=== PATIENT | female | born 2000 | race Caucasian/White ===

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

== ENCOUNTER 2022-05-11 13:01 | Emergency (ER) | payer BC ==
--- OUTSIDE RECORDS SUMMARY | 2022-05-11 13:05 | XMS REPORT | Continuity of Care Document ---
:2000 Author Organization [facility] t Address [address] [place] [address] Care Team Providers Name Role Phone VALERIA PEREZ Huber Primary Care Physician Unavailable Dagoberto Olvera CGC Attending Clinician Lexy Paulson RN Attending Clinician Unavailable Counselor, [employer] Genetic Attending Clinician Unavailable SHERRI OCONNOR Attending Clinician Unavailable NATTY JORDAN Attending Clinician Unavailable Only, Ang Db Test Attending Clinician Unavailable Natty Li Attending Clinician Sherri Oconnor MD Attending Clinician Payers Payer Name Policy Type Policy Number Effective Date Expiration Date S mikhail [employer]X [employer] [id number] 2019 [facility] 00:00:00 [employer] [id number] 2019 00:00:00 Problems Condition Condition Condition Status Onset Resolution Last Treating Co mments Source Name Details Category Date Date Treatment Clinician Date 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 No known No known Disease Unive rs active active ity of problems problems [facility] Allergies, Adverse Reactions, Alerts Allergy Allergy Status Severity Reaction(s) Onset Inactive Treating Comm ents Source Name Type Date Date Clinician Shellfis Allergy Active Swelling 2021- [facility] h-Derive to 3-11 Health d substanc 00:00: Products e 00 NO KNOWN Drug Active [facility] ALLERGIE Class ity of S [facility] Social History Social Habit Start Date Stop Date Quantity Comments Source ASSERTION 2021-09-23 [facility] 00:00:00 Exposure to Not sure [facility] SARS-CoV-2 (event) History SDOH University o f Alcohol Frequency [place] [facility] History SDOH University o f Alcohol Std [place] [facility] Drinks [facility] History SDAZ University o f Alcohol Binge [place] [facility] Tobacco use and 2021-12-09 2021-12-09 Former smokeless [facility] exposure 00:00:00 00:00:00 tobacco user Alcohol intake 2021-12-09 2021-12-09 Ex-drinker [facility] 00:00:00 00:00:00 (finding) Alcohol Comment 2021-09-06 2021-09-06 Socially Universit y of 00:00:00 00:00:00 [facility] Sex Assigned At [birth year] [facility] 00:00:00 00:00:00 Smoking Status Start Date Stop Date Source Tobacco smoking consumption unknown [facility] Never smoked tobacco [facility] Medications Ordered Filled Start Stop Current Ordering Indication Dosage Frequency Signature Comments Components Source Medication Medication Date Date Medication? Clinician (SIG) Name Name DOCUSATE Yes Take by [facility] CALCIUM PO 3-11 mouth. Health 09:46: 03 DOCUSATE Yes Take by [facility] CALCIUM PO 3-11 mouth. Health 09:46: 03 DOCUSATE Yes Take by [facility] CALCIUM PO 3-11 mouth. Health 09:46: 03 DOCUSATE Yes Take by [facility] CALCIUM PO 3-11 mouth. Health 09:46: 03 DOCUSATE 0 Yes Take by [facility] CALCIUM PO 3-11 mouth. Health 09:46: 03 Yes Take by UT MV-Min-Fe 3-11 mouth. Health Fum-FA-DHA 09:45: ( 1 27 PO) 0 Yes Take by UT MV-Min-Fe 3-11 mouth. Health Fum-FA-DHA 09:45: ( 1 27 PO) Yes Take by [facility] MV-Min-Fe 3-11 mouth. Health Fum-FA-DHA 09:45: ( 1 27 PO) Yes Take by UT MV-Min-Fe 3-11 mouth. Health Fum-FA-DHA 09:45: ( 1 27 PO) Yes Take by UT MV-Min-Fe 3-11 mouth. Health Fum-FA-DHA 09:45: ( 1 27 PO) trazodone 2020-10 Yes Take by Unive rs HCl 2-07 mouth. ity of (TRAZODONE 15:52: [place] ORAL) 14 Medical Branch trazodone 2020-10 Yes Take by Unive rs HCl 2-07 mouth. ity of (TRAZODONE 15:52: [place] ORAL) 14 Medical Branch trazodone 2020-10 Yes Take by Unive rs HCl 2-07 mouth. ity of (TRAZODONE 15:52: [place] ORAL) 14 Medical Branch escitalopra Yes Take by Uni vers m oxalate 7-14 mouth. ity of (LEXAPRO 14:44: [place] ORAL) 55 Medical Branch escitalopra Yes Take by Uni vers m oxalate 7-14 mouth. ity of (LEXAPRO 14:44: [place] ORAL) 55 Medical Branch escitalopra Yes Take by Uni vers m oxalate 7-14 mouth. ity of (LEXAPRO 14:44: [place] ORAL) 55 Medical Branch traMADol 50 2020- No [id number] 50mg Take 1 Univers mg tablet -18 09- tablet by ity of 00:00: 00:00 mouth [place] 00 :00 every 6 Medical (six) Branch hours as needed (PAIN). ondansetron 2020- No [id number] 4mg Take 1 Univers 4 mg tablet 03-19- tablet by it y of 00:00: 00:00 mouth [place] 00 :00 every 8 Medical (eight) Branch hours as needed for Nausea and Vomiting (N/V). traMADol 50 2020- No [id number] 50mg Take 1 Univers mg tablet -18 09- tablet by ity of 00:00: 00:00 mouth [place] 00 :00 every 6 Medical (six) Branch hours as needed (PAIN). ondansetron 2020- No [id number] 4mg Take 1 Univers 4 mg tablet -18 09- tablet by it y of 00:00: 00:00 mouth [place] 00 :00 every 8 Medical (eight) Branch hours as needed for Nausea and Vomiting (N/V). Vital Signs Vital Name Observation Time Observation Value Comments Source Body height 2021-12-09 15:39:00 160 [facility] Body weight 2021-12-09 15:39:00 67.132 kg [facility] Healt h BMI 2021-12-09 15:39:00 26.22 kg/m2 [facility] Body mass index 2021-12-09 15:39:00 85.43 % [facility] He alth (BMI) [Percentile] Per age and sex Systolic blood 2021-09-06 21:45:00 100 mm[Hg] Univer sity of pressure [facility] Diastolic blood 2021-09-06 21:45:00 69 mm[facility]Hg[facility] 2021-09-06 21:45:00 97 /min [facility] Body temperature 2021-09-06 21:45:00 36.72 Shanda [facility] 2021-09-06 21:45:00 18 /min [facility] Body height 2021-09-06 21:45:00 160 cm [facility] Body weight 2021-09-06 21:45:00 66.044 kg [facility] BMI 2021-09-06 21:45:00 25.79 kg/m2 [facility] Body mass index 2021-09-06 21:45:00 84.16 % Unive rsity of (BMI) [Percentile] [facility] ical Per age and sex Branch Oxygen saturation in 2021-09-06 21:45:00 99 /min [facility] Arterial blood by [facility] Pulse oximetry Branch Procedures Procedure Date / Time Performed Performing Clinician Sourc e POCT TEST 2021-09-06 21:55:00 Sherri Oconnor [facility] Encounters Start End Encounter Admission Attending Care Care Encounter Source Date/Time Date/Time Type Type Clinicians Facility Department ID 2022-02-05 Outpatient [facility] [id number] ME 01:04:20 [id number] Health 2022-02-01 Outpatient [facility] [id number] ME 12:47:34 [id number] [facility] 2022-01-28 Outpatient [facility] [id number] [place] 11:47:45 [id number] [facility] 2022-01-16 Outpatient [facility] [id number] [place] 10:56:55 [id number] [facility] 2022-01-02 Outpatient [facility] [id number] [place] 10:01:57 [id number] [facility] 2021-12-27 Outpatient [facility] [id number] [place] 07:44:42 [id number] [facility] 2021-12-26 Outpatient [facility] [id number] [place] 14:37:57 [id number] [facility] 2021-12-09 Outpatient [facility] [id number] [place] 09:51:23 Health 2021-12-09 Outpatient [facility] [id number] [place] 09:50:50 Health 2021-12-09 Outpatient [facility] [id number] [place] 09:50:50 [facility] 2021-12-08 Outpatient [facility] [id number] [place] 15:51:55 [facility] 2021-12-07 Outpatient [facility] [id number] [place] 09:07:02 [facility] 2022-01-19 2022-01-19 Telephone Wade, ALEX 6410 [id number] [place] 00:00:00 00:00:[address] [id number] Health [id number] 2022-01-05 2022-01-05 Telephone ALEX Olvera 6410 [id number] [place] 00:00:00 00:00:[address] [id number] Health [id number] 2021-12-26 2021-12-26 Telephone ALEX Olvera 6410 [id number] [place] 00:00:00 00:00:[address] [id number] Health [id number] 2021-12-21 2021-12-21 Telephone ALEX Olvera 6410 [id number] [place] 00:00:00 00:00:[address] [id number] Health [id number] 2021-12-09 2021-12-09 Nurse Only Lexy Paulson UTP 6410 [id number]. [id number] [place] 00:00:00 00:00:[address] [id number] Health [id number] [id number] 2021-12-08 2021-12-08 Education Counselor, UTP 6410 [id number] [place] 14:00:00 15:00:[address] [id number] Health Genetic [id number] 2021-10-19 2021-10-19 Outpatient Hunter OCONNOR [facility] [id number] Univers 09:00:00 09:00:00 [id number] [facility] 2021-10-19 2021-10-19 Outpatient Hunter OCONNOR [facility] [id number] Univers 09:00:00 09:00:00 [facility] 2021-10-11 2021-10-11 Outpatient Hunter OCONNOR [facility] [id number] Univers 15:45:00 15:45:00 [id number] [facility] 2021-10-11 2021-10-11 Outpatient Hunter OCONNOR SHERRI [facility] [id number] Univers 15:45:00 15:45:00 [facility] 2021-09-21 2021-09-21 Outpatient R NIKKI [facility] [id number] Univers 14:30:00 15:10:35 NATTY [facility] 2021-09-21 2021-09-21 Laboratory Only, Ang Db Test [facility] [id number] Univers 14:30:00 14:45:00 Only Natty Jordan [id number] [facility] [id number] Emery as COLE?BLEA [id number] [place] [address] MEDICAL OFFICE BUILDING 2021-09-21 2021-09-21 Outpatient R [facility] [id number] Univers 14:30:00 14:30:00 [id number] [facility] 2021-09-07 2021-09-07 Outpatient R SHERRI OCONNOR [facility] [id number] Univers [facility]-09-[address] [facility] [id number] Univers 15:20:42 16:09:45 Visit Jose GARCIA [id number] i ty of [place] 4.2.7.2.686 Kiana HUGO [id number] [place] [address] 2021-09-06 2021-09-06 Outpatient R SHERRI OCONNOR [facility] [id number] Univers 15:15:00 16:09:45 [facility] Results Test Description Test Time Test Comments Results Result Comments Source POCT TEST 2021-09-06 21:55:00 Test Item Value Reference Range Interpretation Comme nts POCT PREG (test code = 1605) Negative On board controls acceptable with C Line (test code = 3574) Yes POCT PREG LOT # (test code = 3575) [facility]REG TEST [facility] (test code = 3576[id number] 21:55:00 Test Item Value Reference Range Interpretation Comments POCT PREG (test code = 1605) Negative On board controls acceptable with C Yes Line (test code = 3574) POCT PREG LOT # (test code = 3575) POCT PREG TEST DATE (test code = 3576) [facility]
[2022-05-11] MEDS ORDERED: PROMETHAZINE INJ 25 MG/ML AMP ONE ×2 (13:46→19:43)
[2022-05-11] MEDS ORDERED: NA CHLORIDE 0.9% 1,000 ML ONE (13:47)
[2022-05-11 14:11] LABS: Absolute Lymphocytes (CBC) 0.9 K/uL (0.7-4.9); Hematocrit 34.1 % (36.0-45.0); Lymphocytes % 6.7 % (15.3-44.8); MCV 84.5 fL (80-100); MPV 9.8 fL (7.6-11.3); RBC Red Blood Cell Count 4.04 M/uL (3.86-4.86)
[2022-05-11 14:27] LABS: Albumin 2.8 g/dL (3.4-5.0); Bilirubin Total 0.6 mg/dL (0.2-1.0); Potassium 3.7 mmol/L (3.5-5.1); Protein, Total 6.8 g/dL (6.4-8.2)
--- NOTE | 2022-05-11 14:28 | RAD REPORT ---
EXAM DESCRIPTION: US - Abdomen Exam Limited - 05/11/2022 2:15 pm CLINICAL HISTORY: FLANK PAIN Abdominal pain COMPARISON: No comparisons FINDINGS: The gallbladder demonstrates no gallstones. No pericholecystic fluid or gallbladder wall t hickening. The common bile duct is normal measuring 3 mm. The liver demonstrates no findings of intrahepatic biliary dilatation. IMPRESSION: Unremarkable examination.
[2022-05-11] MEDS ORDERED: MORPHINE 2 MG/ML SYR ONE (15:30)
--- NOTE | 2022-05-11 15:37 | RAD REPORT ---
EXAM DESCRIPTION: US - Renal Ultrasound-Limited - 05/11/2022 3:12 pm CLINICAL HISTORY: HYDRO -- LEFT Flank pain COMPARISON: Abdomen Exam Limited dated 05/11/2022 FINDINGS: Only in the left kidney was requested. The left kidney measures 12.1 x 6.3 x 5.1 cm. No hydronephrosis, focal mass or perinephric fluid. IMPRESSION: Negative left kidney ultrasound.
[2022-05-11 16:26] LABS: Urine Blood Trace-intact (Negative); Urine Glucose Negative (Negative); Urine Protein Negative (Negative); Urine Specific Gravity 1.025 (1.005-1.030)
[2022-05-11 17:19] LABS: Urine Bacteria 20-50 /HPF (<20); Urine RBC <5 /HPF (None Seen)
--- NOTE | 2022-05-11 18:05 | ER ---
Nurse's Notes [facility] Name: Ramírez Escalona Age: 21 yrs Sex: Female : 2000 Arrival Date: 05/11/2022 Time: 13:03 Bed 14 Private MD: Diagnosis: Pyelonephritis acute;Vomiting;Flank pain Presentation: 05/11 13:23 Chief complaint: Patient states: I started having bad pains that are in my side and I bm7 thought they were contractions so I went to my doc at [facility] and said I was not in labor and come the ER because it might be a kidney stone. Coronavirus screen: At this time, the client does not indicate any symptoms associated with coronavirus-19. Ebola Screen: No symptoms or risks identified at this time. Initial Sepsis Screen: Does the patient meet any 2 criteria? No. Patient's initial sepsis screen is negative. Does the patient have a suspected source of infection? No. Patient's initial sepsis screen is negative. Risk Assessment: Do you want to hurt yourself or someone else? Patient reports no desire to harm self or others. 13:23 Method Of Arrival: Ambulatory [facility] 13:23 Acuity: GIOVANNY 3 7 13:23 Onset of symptoms was May 11, 2022. 7 Triage Assessment: 13:26 General: Appears in no apparent distress. uncomfortable. General: Appears Behavior is bm7 calm, cooperative, appropriate for age. Pain: Complains of pain in left low back and left mid back Pain does not radiate. Pain currently is 8 out of 10 on a pain scale. EENT: No deficits noted. No signs and/or symptoms were reported regarding the EENT system. Neuro: No deficits noted. Cardiovascular: No deficits noted. Respiratory: No deficits noted. GI: Abdomen is round non-distended, Bowel sounds present X 4 quads. Reports nausea, vomiting. : Denies burning with urination, vaginal bleeding. Derm: No deficits noted. No signs and/or symptoms reported regarding the dermatologic system. Musculoskeletal: No deficits noted. No signs and/or symptoms reported regarding the musculoskeletal system. SLOPE TENDER: 13:26 LMP 09/09/2021, Verified, EDC 06/16/2022, Gestational age from LMP: 34 weeks 6 bm7 days Historical: - Allergies: 13:26 SHELLFISH; bm7 - Home Meds: 13:26 Multiple Vitamins oral tab [Active]; bm7 - PMHx: 13:26 Anxiety; Depression; bm7 - PSHx: 13:26 facial reconstruction; bm7 - Immunization history:: Adult Immunizations up to date. - Social history:: Smoking status: Patient/guardian denies using tobacco products. Screenin:00 Abuse screen: Denies threats or abuse. Denies injuries from another. Nutritional jl7 screening: No deficits noted. Tuberculosis screening: No symptoms or risk factors identified. Fall Risk IV access (20 points). Assessment: 14:00 General: Appears in no apparent distress. uncomfortable, Behavior is calm, cooperative, jl7 appropriate for age. Pain: Complains of pain in left mid back Pain radiates to left lower quadrant Pain currently is 9 out of 10 on a pain scale. Is continuous. Neuro: Level of Consciousness is awake, alert, obeys commands, Oriented to person, place, time, situation. Cardiovascular: Patient's skin is warm and dry. Respiratory: Airway is patent Respiratory effort is even, unlabored, Respiratory pattern is regular, symmetrical. GI: Abdomen is round distended, Reports nausea. : Denies burning with urination, pain with urination. Derm: Skin is dry, Skin is pale, Skin temperature is warm. 15:00 Reassessment: Patient appears in no apparent distress at this time. No changes from jl7 previously documented assessment. Patient and/or family updated on plan of care and expected duration. Pain level reassessed. Patient is alert, oriented x 3, equal unlabored respirations, skin warm/dry/pink. 15:56 Reassessment: Dr. Quan at bedside. jl7 17:00 Reassessment: Patient appears in no apparent distress at this time. No changes from jl7 previously documented assessment. Patient and/or family updated on plan of care and expected duration. Pain level reassessed. Patient is alert, oriented x 3, equal unlabored respirations, skin warm/dry/pink. Vital Signs: 13:23 BP 100 / 68; Pulse 84; Resp 16; Temp 98.8(TE); Pulse Ox 100% on R/A; Weight 78.02 kg bm7 (R); Height 5 ft. 3 in. (160.02 cm); Pain 9/10; 15:54 BP 127 / 71; Pulse 81; Resp 15; Pulse Ox 98% ; jl7 16:20 BP 112 / 69; Pulse 79; Resp 16; em6 17:45 BP 112 / 69; Pulse 79; Resp 15; Pulse Ox 97% ; jl7 13:23 Body Mass Index 30.47 (78.02 kg, 160.02 cm) bm7 Vitals: 19:01 Heart Tones 150 bpm. jl7 ED Course: 13:03 Patient arrived in ED. mr 13:06 Cristian Quan DO is Attending Physician. ms3 13:26 Triage completed. bm7 13:26 Arm band placed on left wrist. bm7 13:58 Vin Agustin, DAJUAN is Primary Nurse. jl7 14:00 Patient has correct armband on for positive identification. Pulse ox on. NIBP on. jl7 14:00 Initial lab(s) drawn, by ED staff, sent to lab. Inserted saline lock: 14 gauge in left jl7 antecubital area, using aseptic technique. Blood collected. 14:17 US Abdomen Limited In Process Unspecified. EDMS 15:13 Renal Ultrasound-Limited In Process Unspecified. EDMS 16:20 Urine collected: clean catch specimen, clear. jl7 17:37 called the office of Dr. Ashley Cooney at [phone] patient's OBGYN/ answering eb service will page the seasonal greenery bundler Dr. Sher and they will call us back. 17:[address] Shearer the seasonal greenery bundler covering Dr. Cooney with Dr. Quan for patient eb consultation. 19:01 No provider procedures requiring assistance completed. Patient transferred, IV remains jl7 in place. intact, No redness/swelling at site. Administered Medications: 13:40 Drug: NS 0.9% 1000 ml Route: IV; Rate: 1 bolus; Site: left antecubital; jl7 15:15 Follow up: Response: No adverse reaction; IV Status: Completed infusion; IV Intake: jl7 1000ml 13:45 Drug: Phenergan (promethazine) 25 mg Route: IM; Site: right deltoid; jl7 15:30 Drug: morphine 2 mg Route: IVP; Infused Over: 4 mins; Site: left antecubital; em6 16:20 Follow up: BP 112 / 69; Pulse 79 bpm; Resp 16 bpm; Response: No adverse reaction; RASS: em6 Alert and Calm (0) 18:28 Drug: Rocephin (cefTRIAXone) 1 grams Route: IV; Rate: calculated rate; Site: left jl7 antecubital; 19:02 Follow up: Response: No adverse reaction; IV Status: Completed infusion jl7 19:45 Drug: morphine 4 mg Route: IVP; Infused Over: 4 mins; Site: left antecubital; ja4 19:45 Drug: Phenergan (promethazine) 12.5 mg Route: IM; Site: left gluteus; ja4 Medication: 16:18 VIS not applicable for this client. jl7 Intake: 15:15 IV: 1000ml; Total: 1000ml. jl7 Outcome: 18:05 ER care complete, transfer ordered by ms3 19:53 Patient left the ED. ja4 Signatures: Dispatcher [employer] EDAR Angela ChasealVin RN RN jl7 Ruba Perera Marcus, DO ms3 Anastasia Pizarro, RN RN bm7 Kelsi Martinez RN RN em6 Javon Duenas RN RN ja4 Corrections: (The following items were deleted from the chart) 18:28 18:28 Rocephin (cefTRIAXone) 1 grams IV at calculated rate in right antecubital jl7 jl7
--- NOTE | 2022-05-11 18:05 | EDPHYS ---
Physician Documentation [facility] Name: Ramírez Escalona Age: 21 yrs Sex: Female : 2000 Arrival Date: 05/11/2022 Time: 13:03 Bed 14 Private MD: ED Physician Cristian Quan HPI: 05/11 17:54 This 21 yrs old Female presents to ER via Ambulatory with complaints of 34 wks ms3 , Nausea/Vomiting, Flank Pain. 17:54 The patient presents to the emergency department with nausea, vomiting. Onset: The ms3 symptoms/episode began/occurred last night. Possible causes: unknown. The symptoms are aggravated by nothing. The symptoms are alleviated by nothing. Associated signs and symptoms: Pertinent positives: nausea, vomiting. 21-year-old female G1, P0 at 34 weeks gestation presents for left flank pain that began last night. Patient states her pain is a 9/10 and aching. Patient states back rubs make the pain better. Patient denies inciting factors. Patient endorses nausea and vomiting. Patient denies dysuria. Patient states she was seen at [facility] labor and delivery where an ultrasound was performed and found to be normal and patient was discharged.. [employer]: 13:26 LMP 09/09/2021, Verified, EDC 06/16/2022, Gestational age from LMP: 34 weeks 6 bm7 days Historical: - Allergies: 13:26 SHELLFISH; bm7 - Home Meds: 13:26 Multiple Vitamins oral tab [Active]; bm7 - PMHx: 13:26 Anxiety; Depression; bm7 - PSHx: 13:26 facial reconstruction; bm7 - Immunization history:: Adult Immunizations up to date. - Social history:: Smoking status: Patient/guardian denies using tobacco products. ROS: 17:54 Constitutional: Negative for fever, and chills. Neck: Negative for injury, pain, and ms3 swelling, Cardiovascular: Negative for chest pain, and palpitations. Respiratory: Negative for shortness of breath, cough, wheezing, and pleuritic chest pain. 17:54 Skin: Negative for injury, rash, and discoloration. 17:54 Abdomen/GI: Positive for nausea and vomiting, Flank pain. 17:54 All other systems are negative. Exam: 17:54 Constitutional: This is a well developed, well nourished patient who is awake, alert, ms3 and in no acute distress. Neck: Trachea midline, no cervical lymphadenopathy. Supple, full range of motion without nuchal rigidity, or vertebral point tenderness. No Meningismus. Chest/axilla: Normal chest wall appearance and motion. Nontender with no deformity. Respiratory: Lungs have equal breath sounds bilaterally, clear to auscultation and percussion. No rales, rhonchi or wheezes noted. No increased work of breathing, no retractions or nasal flaring. 17:54 Skin: Warm, dry with normal turgor. Normal color with no rashes, no lesions, and no evidence of cellulitis. MS/ Extremity: Pulses equal, no cyanosis. Neurovascular intact. Full, normal range of motion. Neuro: Awake and alert, GCS 15, oriented to person, place, time, and situation. Cranial nerves II-XII grossly intact. Motor strength 5/5 in all extremities. Sensory grossly intact. Cerebellar exam normal. Normal gait. Psych: Awake, alert, with orientation to person, place and time. Behavior, mood, and affect are within normal limits. 17:54 Abdomen/GI: Inspection: gravid appearance, is noted, Bowel sounds: normal, Palpation: abdomen is soft and non-tender. 17:54 Back: CVA tenderness, is noted on the left. Vital Signs: 13:23 BP 100 / 68; Pulse 84; Resp 16; Temp 98.8(TE); Pulse Ox 100% on R/A; Weight 78.02 kg bm7 (R); Height 5 ft. 3 in. (160.02 cm); Pain 9/10; 15:54 BP 127 / 71; Pulse 81; Resp 15; Pulse Ox 98% ; jl7 16:20 BP 112 / 69; Pulse 79; Resp 16; em6 17:45 BP 112 / 69; Pulse 79; Resp 15; Pulse Ox 97% ; jl7 13:23 Body Mass Index 30.47 (78.02 kg, 160.02 cm) bm7 MDM: 13:42 Patient medically screened. ms3 17:54 Differential diagnosis: Nonspecific abd pain, gastritis, UTI vs Pyelonephritis vs ms3 Kidney stone. Data reviewed: vital signs, nurses notes, lab test result(s), CBC, electrolytes, hepatic panel, radiologic studies, ultrasound, and as a result, I will transfer to patient's physician. Counseling: I had a detailed discussion with the patient and/or guardian regarding: the historical points, exam findings, and any diagnostic results supporting the discharge/admit diagnosis, lab results, radiology results, the need to transfer to another facility. ED course: Discussed case with Dr Serene Velez, salesperson hosiery for patient's OB Dr Cooney, and she accepts patient to [facility].. 05/11 13:06 Order name: CBC with Diff; Complete Time: 14:34 ms3 05/11 13:06 Order name: CMP; Complete Time: 14:34 ms3 05/11 13:06 Order name: Urine Microscopic Only; Complete Time: 17:20 ms3 05/11 13:45 Order name: US Abdomen Limited; Complete Time: 14:34 ms3 05/11 16:26 Order name: Urine Dipstick-Ancillary; Complete Time: 17:11 EDMS 05/11 17:21 Order name: Urine Culture EDMS 05/11 13:06 Order name: IV Saline Lock; Complete Time: 13:58 ms3 05/11 14:46 Order name: Renal Ultrasound-Limited; Complete Time: 15:52 EDMS 05/11 13:06 Order name: Labs collected and sent; Complete Time: 13:58 ms3 05/11 13:06 Order name: Urine Dipstick-Ancillary (obtain specimen); Complete Time: 17:21 ms3 Administered Medications: 13:40 Drug: NS 0.9% 1000 ml Route: IV; Rate: 1 bolus; Site: left antecubital; jl7 15:15 Follow up: Response: No adverse reaction; IV Status: Completed infusion; IV Intake: jl7 1000ml 13:45 Drug: Phenergan (promethazine) 25 mg Route: IM; Site: right deltoid; jl7 15:30 Drug: morphine 2 mg Route: IVP; Infused Over: 4 mins; Site: left antecubital; em6 16:20 Follow up: BP 112 / 69; Pulse 79 bpm; Resp 16 bpm; Response: No adverse reaction; RASS: em6 Alert and Calm (0) 18:28 Drug: Rocephin (cefTRIAXone) 1 grams Route: IV; Rate: calculated rate; Site: left jl7 antecubital; 19:02 Follow up: Response: No adverse reaction; IV Status: Completed infusion jl7 19:45 Drug: morphine 4 mg Route: IVP; Infused Over: 4 mins; Site: left antecubital; ja4 19:45 Drug: Phenergan (promethazine) 12.5 mg Route: IM; Site: left gluteus; ja4 Disposition Summary: 05/11/22 18:05 Transfer Ordered Transfer Location: [facility] ms3 Reason: Higher level of care ms3 Condition: Stable ms3 Problem: new ms3 Symptoms: are unchanged ms3 Accepting Physician: Dr Serene Velez(05/11/22 19:53) jose a4 Diagnosis - Pyelonephritis acute ms3 - Vomiting ms3 - Flank pain ms3 Forms: - Medication Reconciliation Form ms3 - SBAR form ms3 Signatures: Dispatcher [employer] EDVin Durant RN RN jl7 Cristian Quan, DO ms3 Anastasia Pizarro, RN DAJUAN [email or web address] Kelsi Martinez RN RN em6 Javon Duenas RN DAJUAN ja4 Corrections: (The following items were deleted from the chart) 19:53 18:05 Dr Serene Velez ms3 ja4
[2022-05-11] MEDS ORDERED: NA CHLORIDE 0.9% 50 ML ONE (18:29)
[2022-05-11] MEDS ORDERED: CEFTRIAXONE 1000 MG/VIAL ONE (18:29)
[2022-05-11] MEDS ORDERED: MORPHINE 4 MG/ML SYR ONE (19:44)
[2022-05-11 22:51] VITALS: BP 100/68; TEMP 98.8; O2SAT 100
== END 2022-05-11 19:53 | disposition short-term general hospital (02) ==
LOC: ER 13:01
DX: O23.03 Infections of kidney in pregnancy, third trimester (principal); Z3A.34 34 weeks gestation of pregnancy; Z91.013 Allergy to seafood
CPT/HCPCS: 96365; 96361; 87088; 85025; 87086; 36415; 80053; 76705; 76775; 96375; 96372; 99284; J2550 ×2; J2270; J7030; 81003; 81015

== ENCOUNTER 2022-12-02 18:07 | Emergency (ER) | payer BC ==
--- OUTSIDE RECORDS SUMMARY | 2022-12-02 18:12 | XMS REPORT | Continuity of Care Document ---
:2000 Author Organization [facility] t Address [address] [facility]. [address] [place] [address] Care Team Providers Name Role Phone Unknown, Physician Primary Care Physician Unavailable ASHLEY COONEY Attending Clinician Unavailable Ashley Cooney Attending Clinician Nadege Aviles Attending Clinician NADEGE AVILES Attending Clinician Unavailable Serene Motley Attending Clinician SERENE MOTLEY Attending Clinician Unavailable Danny Gonzalez Attending Clinician DANNY GONZALEZ Attending Clinician Unavailable Dagoberto Olvera CGC Attending Clinician Lexy Paulson RN Attending Clinician Unavailable Counselor, [employer] Attending Clinician Unavailable SHERRI OCONNOR Attending Clinician Unavailable Melecio Dee Attending Clinician MELECIO DEE Attending Clinician Unavailable CAREN JORDAN Attending Clinician Unavailable Only, Ang Db Test Attending Clinician Unavailable Caren Li Attending Clinician Pob, [facility] Attending Clinician Unavailable Sherri Oconnor MD Attending Clinician Doctor Unassigned, [place] Attending Clinician Unavailable Jeremías Llanos Attending Clinician VIDAL PEREZROSA Huber Attending Clinician Unavailable CRISTAL DUNCAN Attending Clinician Unavailable [facility]ral [facility] DENISE Ariebonifacio Attending Clinician [facility] Attending Clinician Unavailable Cristal Berger Attending Clinician Manuel George MD Attending Clinician MANUEL GEORGE Attending Clinician Unavailable ASHLEY COONEY Admitting Clinician Unavailable Ashley Cooney Admitting Clinician Serene Motley Admitting Clinician SERENE MOTLEY Admitting Clinician Unavailable MANUEL GEORGE Admitting Clinician Unavailable Payers Payer Name Policy Type Policy Number Effective Date Expiration Date S mikhail [employer] [id number] 2019 [facility] 00:00:00 [facility] HEALTH SELECT [id number] 2019 00:00:00 [facility] [id number] 2014 00:00:00 Problems Condition Condition Condition Status Onset Resolution Last Treating Co mments Source Name Details Category Date Date Treatment Clinician Date , , Diagnosis Active 2022-06-14 Mem oria 06/16/22, 06/16/22, 05-31 13:56: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 00:00: Demario n IOL IOL 00 (UNVACCINA (UNVACCINA T T Active 05/31/2022 [facility] OB PROBLEM OB Diagnosis Active 2022-05-25 Memoria PROBLEM 05-25 22:30:00 l Active 00:00: [place] 05/25/2022 [facility] PYELONEPHR PYELONEPH Diagnosis Active 2022-05-13 Memoria ITIS RITIS 05-11 12:33:00 l Active 00:00: [place] 05/11/2022 [facility] CONTRACTIO Diagnosis Active 2022-05-12 Memoria NS CONTRACTIO 05-11 09:22:00 l NS Active 00:00: [place] 05/11/2022 [facility] PAIN PAIN Diagnosis Active 2022-03-23 Mem oria Active 03-23 21:28:00 l 03/23/2022 00:00: Demario clifford [address] 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 6 WKS 6 WKS Diagnosis Active 2021-10-14 Mem oria PREGO/VOMI PREGO/VOMI - 19:28:00 l TING/ABD TING/ABD 00:00: Demario clifford PAIN PAIN 00 Active 10/12/2021 [facility] Patient Patient Problem Active 2020-102022-06-19 Me goff currently currently 2-10 22:56:53 l 00:00: Demario clifford (finding) (finding) 00 Active 09/09/2021 Problem 06/19/2022 [facility] FALL FALL Diagnosis Active 2020-102021-08-15 Mem oria Active 10-14 13:14:00 l 08/14/2021 00:00: Demario clifford [address] [place] No known No known Disease Unive rs active active ity of problems problems [facility] Depressive Depressiv Problem Active 2022-06-19 Memoria disorder e disorder 22:56:53 l (disorder) (disorder) Kvng goodmanann Active Problem 06/19/2022 [facility], [facility] Chlamydial Problem Resolve 2022-06-19 2022-06-19 Memoria infection Chlamydial d 10-01 22:56:53 22:56:53 l (disorder) infection 00:00: Her hogan (disorder) 00 Resolved 10/01/2021 Problem 06/19/2022 [facility] History of Past Illness Condition Condition Condition Status Onset Resolution Last Treating Co mments Source Name Details Category Date Date Treatment Clinician Date Problem 2022-05-28 2022-05-28 Memoria state, formerly [facility], 05-26 00:11:21 00:11:21 l incidental incidental 04:06: Kvng lin 05/26/2022 00 05/28/2022 [facility] Frequency Frequency Problem 2022022-05-28 2022-05-28 Memoria of of 05-26 00:11:21 00:11:21 l micturitio micturitio 04:06: He delia n n 00 05/26/2022 05/28/2022 [facility] Allergies, Adverse Reactions, Alerts Allergy Allergy Status Severity Reaction(s) Onset Inactive Treating Comm ents Source Name Type Date Date Clinician Shellfis Allergy Active Swelling [place] h-Derive to 12-09 Health d substan 00:00: Products e 00 shellfis shellfis Active Memori a h h l [place] No Known No Known Active Memori a Medicati Medicati l on on [place] Allergie Allergie s s NO KNOWN Drug Active Univers ALLERGIE Class ity of S [facility] Social History Social Habit Start Date Stop Date Quantity Comments Source ASSERTION 2021-09-23 [facility] 00:00:00 History SDOH University o f Alcohol Frequency [place] [facility] History SDAZ University o f Alcohol Std [place] [facility] Drinks [facility] History SDAZ University o f Alcohol Binge [place] [facility] Exposure to Not sure [facility] SARS-CoV-2 (event) Social History 2022-03-24 2022-03-24 [facility] 00:37:39 00:37:39 Tobacco use and 2021-12-09 2021-12-09 Former smokeless [facility] exposure 00:00:00 00:00:00 tobacco user Alcohol intake 2021-12-09 2021-12-09 Ex-drinker [facility] 00:00:00 00:00:00 (finding) Alcohol Comment 2021-09-06 2021-09-06 Socially Universit y of 00:00:00 00:00:00 [facility] Sex Assigned At [birth year] [facility] 00:00:00 00:00:00 Smoking Status Start Date Stop Date Source Tobacco smoking consumption unknown [facility] Never smoked tobacco [facility] Social History 2021-08-14 10:11:52 [facility] Medications Ordered Filled Start Stop Current Ordering Indication Dosage Frequency Signature Comments Components Source Medication Medication Date Date Medication? Clinician (SIG) Name Name ferrous Yes 325 mg = 1 Christiano sarthak sulfate 325 9-17 tab, PO, l mg oral 16:55: Daily, # Demario n enteric 00 30 tab, 2 coated Refill(s), tablet Pharmacy: [facility] #[id number], 160.02, cm, 06/09/22 8:47:00 CDT, Height, 77.727, kg, 06/09/22 8:47:00 CDT, Weight ibuprofen Yes 600 mg = 1 Me moria 600 mg oral 9-17 tab, PO, l tablet 16:53: Q6H, X 14 Demario n 00 day, # 56 tab, 1 Refill(s), Pharmacy: [facility] #[id number], 160.02, cm, 06/09/22 8:47:00 CDT, Height, 77.727, kg, 06/09/22 8:47:00 CDT, Weight Colace 100 Yes 100 mg = 1 M emoria mg oral 9-17 cap, PO, l capsule 16:53: Daily, PRN Herm nakul 00 Constipati on, # 60 cap, 2 Refill(s), Pharmacy: [facility] #[id number], 160.02, cm, 06/09/22 8:47:00 CDT, Height, 77.727, kg, 06/09/22 8:47:00 CDT, Weight Tylenol Yes 1 - 2 tab, Christiano sarthak with 9-17 PO, Q6H, l Codeine #3 16:53: PRN Pain, He rmann oral tablet 00 X 5 day, # 20 tab, 0 Refill(s), Pharmacy: [facility] #[id number], 160.02, cm, 06/09/22 8:47:00 CDT, Height, 77.727, kg, 06/09/22 8:47:00 CDT, Weight Colace 100 No Notes: Memor ia mg oral 9-17 (Same as: l capsule 14:21: Colace) (Do Not Crush) ibuprofen No Notes: Memori a 9-15 (Same as: l 17:00: Motrin) "Do Not Crush" Take with food. acetaminoph No Notes: Do M emoria en -15 not exceed l 17:00: 4 gm/day. Antione 00 (Same as: Tylenol) No 1 tab, Memoria Multivitami -15 Route: PO, l ns oral 14:00: Drug Form: Herm nakul tablet 00 TAB, Dosing Weight 77.727, kg, Daily, Start date: 06/15/22 9:00:00 CDT, Duration: 30 day, Stop date: 07/14/22 9:00:00 CDT, 0 Lactated No 1,000 mL, Christiano sarthak Ringers 9-15 1,000 l (Bolus) IV 14:00: ml/hr, Jeanna nn 00 Infuse Over: 1 hr, Route: IV, 1,000, Drug form: INJ, ONCALL, Dosing Weight 77.727 kg, Start date: 06/15/22 9:00:00 CDT, Duration: 1 doses or times, For OB hemorrhage per physician direction, 0 oxytocin No Notes: Memoria 9-15 (Same as: l 14:00: Pitocin) Hazardous Drug Group 3:Reproduc tive risk Hazardous Drug -- Refer to safe handling procedure PPE Matrix misoprostol No Notes: Christiano sarthak 9-15 (Same l 14:00: as:Cytotec ) Hazardous Drug Group 3:Reproduc tive risk Hazardous Drug -- Refer to safe handling procedure PPE Matrix Take with food methylergon No Notes: Christiano sarthak ovine 9-15 (Same l 14:00: as:Metherg ine) Hazardous Drug Group 3:Reproduc tive risk Hazardous Drug -- Refer to safe handling procedure PPE Matrix atropine-di No Notes: Christiano sarthak phenoxylate 9-15 (Same As: l 0.025 14:00: Lomotil) mg-2.5 mg 00 MAX Adult oral tablet dose = 8 tabs/day carboprost No Notes: Memor ia 9-15 (Same As: l 14:00: Hemabate) tranexamic No Notes: Memor ia acid -15 (Same As: l 14:00: Cyklokapro n) Saline No Notes: Memoria Flush 0.9% -15 Same as: l 14:00: BD Posiflush Sterile naloxone No Notes: Memoria 15 Same as l 14:00: Narcan morphine No Route: Memoria Sulfate 15 INTRATHECA l (ANES) 13:57: L, Drug form: SOLN, ONCE, Stop date: 06/15/22 8:57:00 CDT ondansetron No Route: IV, Memoria (ANES) 06-15 Drug form: l 13:55: INJ, ONCE, Stop date: 06/15/22 8:55:00 CDT ketOROLAC No IV, ONCE Christiano sarthak (ANES) 06-15 l 13:55: promethazin No Route: IV, Memoria e (ANES) 06-15 Drug form: l 13:55: INJ, ONCE, Stop date: 06/15/22 8:55:00 CDT Lactated No 1,000 mL, Christiano sarthak Ringers IV 06-15 Rate: 125 l 1,000 mL 13:55: ml/hr, Infuse over: 8 hr, Route: IV, Dosing Weight 77.727 kg, Total Volume: 1,000, see special instructio n for rate while completing infusion from recovery for the 20 Units of Oxytocin., Start date: 06/15/22 8:55:00 CDT, Duration:. .. bisacodyl No Notes: Memori a -15 (Same As: l 13:55: Dulcolax, Bisco-Lax) lanolin No Notes: Memoria topical 15 (Same l cream 13:55: as:Lanolin ) benzocaine- No Notes: Christiano sarthak menthol 06-15 Cepacol l topical 13:55: lozenges Dispense 1 box = 16 lozenges (Same As: Cepacol Lozenges) simethicone No Notes: Christiano sarthak 15 (Same as: l 13:55: Mylicon) oxytocin 30 No Notes: Christiano sarthak units in NS 9-15 Hazardous l 500 mL 13:55: Drug Group Jeanna nn (Titrate) 00 3:Reproduc IV 30 unit tive risk Hazardous Drug -- Refer to safe handling procedure PPE Matrix Saline No Notes: Memoria Flush 0.9% 06-15 Same as: l 13:55: BD Posiflush Sterile oxyCODONE No Notes: Memori a immediate 06-15 (Same as: l release 13:55: Roxicodone ) ondansetron No Notes: Christiano sarthak 06-15 (Same as: l 13:55: Zofran) MEDICATION WASTE Product Size: 4 mg Product Wasted: ___ mg promethazin No Notes: Do M emoria e 06-15 not give l 13:55: IV push. (Same as: Phenergan) metoclopram No Notes: Christiano sarthak krzysztof 06-15 (Same as: l 13:55: Reglan) nalbuphine No Notes: Memor ia 06-15 (Same As: l 13:55: Nubain) naloxone No Notes: Memoria 06-15 Same as l 13:55: Narcan methylergon No Route: IM, Memoria ovine 06-15 Drug form: l (ANES) 13:50: INJ, ONCE, Jeanna nn 00 Stop date: 06/15/22 8:50:00 CDT fentaNYL No Route: Memoria (ANES) 15 EPIDURAL, l 13:40: Drug form: [place] 00 INJ, ONCE, Stop date: 06/15/22 8:40:00 CDT sodium No Route: Memoria bicarbonate 9-15 EPIDURAL, l (ANES) 13:35: Drug form: Jeanna nn 00 INJ, ONCE, Stop date: 06/15/22 8:35:00 CDT famotidine No Route: IV, M emoria (ANES) 06-15 Drug form: l 13:30: INJ, ONCE, [place] Stop date: 06/15/22 8:30:00 CDT ondansetron No Route: IV, Memoria (ANES) 9-15 Drug form: l 13:30: INJ, ONCE, Antione Stop date: 06/15/22 8:30:00 CDT EPINEPHrine No Route: IV, Memoria -lidocaine 9-15 Drug Form: l (ANES) 13:30: INJ, ONCE, Jeanna nn Stop date: 06/15/22 8:30:00 CDT ceFAZolin No Route: IV, Me moria (ANES) 9-15 Drug form: l 13:25: INJ, ONCE, Antione Stop date: 06/15/22 8:25:00 CDT oxytocin No Route: IV, Mem oria (ANES) 30 9-15 Drug form: l unit 13:07: SOLN, Antione Start date: 06/15/22 8:07:00 CDT, Stop date: 06/15/22 9:07:00 CDT acetaminoph No Route: IV, Memoria en (ANES) -15 Drug form: l 10 mg 13:03: INJ, Start Demario n date: 06/15/22 8:03:00 CDT, Stop date: 06/15/22 9:03:00 CDT Lactated No Route: IV, Mem oria Ringers 9-15 Total l Injection 12:53: Volume: Jeanna nn IV (ANES) 00 1,000, 1000 mL Start date: 06/15/22 7:53:00 CDT, Stop date: 06/15/22 8:53:00 CDT azithromyci No Route: IV, Memoria n (ANES) 9-15 Drug form: l 500 mg 12:40: INJ, Start Jeanna nn 00 date: 06/15/22 7:40:00 CDT, Stop date: 06/15/22 8:40:00 CDT Pepcid No Notes: Memoria 9-15 (Same as: l 11:13: Pepcid) [place] 00 Ropivacaine No Notes: Christiano sarthak 0.1% + 9-14 (Same as l fentaNYL 2 11:08: Naropin-Nicole H ermann mcg/ml 00 blimaze) Epidural CADD 200 mL oxytocin 30 No Notes: Christiano sarthak units in NS 06-14 Hazardous l 500 mL 09:20: Drug Group Jeanna nn (Titrate) 00 3:Reproduc IV 30 unit tive risk Hazardous Drug -- Refer to safe handling procedure PPE Matrix Remove - No Notes: Memoria dinoproston 06-14 Vaginal l e 09:00: insert: to Antione (Cervidil) 00 be removed insert 1 hour prior to oxytocin administra tion or 12 hours after insertion. Hazardous Drug Group 3:Reproduc tive risk Hazardous Drug -- Refer to safe handling procedure PPE Matrix Cervidil No Notes: Memoria 06-13 (Same as: l 20:20: Cervidil) Antione Hazardous Drug Group 3:Reproduc tive risk Hazardous Drug -- Refer to safe handling procedure PPE Matrix Remove - No Notes: Memoria dinoproston 06-13 Vaginal l e 19:00: insert: to Antione (Cervidil) 00 be removed insert 1 hour prior to oxytocin administra tion or 12 hours after insertion. Hazardous Drug Group 3:Reproduc tive risk Hazardous Drug -- Refer to safe handling procedure PPE Matrix acetaminoph No Notes: Do M emoria en 06-13 not exceed l 07:00: 4 gm/day. Antione (Same as: Tylenol) ibuprofen No Notes: Memori a 06-13 (Same as: l 07:00: Motrin) Antinoe "Do Not Crush" Take with food. Lactated No 1,000 mL, Christiano sarthak Ringers 06-13 1,000 l (Bolus) IV 07:00: ml/hr, Jeanna nn 00 Infuse Over: 1 hr, Route: IV, 1,000, Drug form: INJ, ONCALL, Dosing Weight 77.727 kg, Start date: 06/13/22 2:00:00 CDT, Duration: 1 doses or times, For OB hemorrhage per physician direction, 0 oxytocin No Notes: Memoria 06-13 (Same as: l 07:00: Pitocin) [place] Hazardous Drug Group 3:Reproduc tive risk Hazardous Drug -- Refer to safe handling procedure PPE Matrix misoprostol No Notes: Christiano sarthak -13 (Same l 07:00: as:Cytotec [place] 00 ) Hazardous Drug Group 3:Reproduc tive risk Hazardous Drug -- Refer to safe handling procedure PPE Matrix Take with food methylergon No Notes: Christiano sarthak ovine 06-13 (Same l 07:00: as:Metherg Antione ine) Hazardous Drug Group 3:Reproduc tive risk Hazardous Drug -- Refer to safe handling procedure PPE Matrix atropine-di No Notes: Christiano sarthak phenoxylate 06-13 (Same As: l 0.025 07:00: Lomotil) Antione mg-2.5 mg 00 MAX Adult oral tablet dose = 8 tabs/day carboprost No Notes: Memor ia 06-13 (Same As: l 07:00: Hemabate) Antione 00 tranexamic No Notes: Memor ia acid 06-13 (Same As: l 07:00: Cyklokapro Ant[place] 00 n) Lactated No 1,000 mL, Christiano sarthak Ringers 06-13 Rate: 125 l Injection 06:42: ml/hr, Demario n IV 1,000 mL 00 Infuse over: 8 hr, Route: IV, Dosing Weight 77.727 kg, Total Volume: 1,000, see special instructio ns when infusing 20 Units of Oxytocin., Start date: 06/13/22 1:42:00 CDT, Duration: 30 day, Stop date: 07/13/22 1:41:00 CDT, B... oxytocin 30 No Notes: Christiano sarthak units in NS 06-13 Hazardous l 500 mL 06:42: Drug Group Jeanna nn (Bolus) IV 00 3:Reproduc 10.02 unit tive risk Hazardous Drug -- Refer to safe handling procedure PPE Matrix oxytocin 30 No Notes: Christiano sarthak units in NS 06-13 Hazardous l 500 mL IV 06:42: Drug Group He rmann 19.98 unit 00 3:Reproduc tive risk Hazardous Drug -- Refer to safe handling procedure PPE Matrix butorphanol No Notes: Christiano sarthak -13 (Same As: l 06:42: Stadol) [place] 00 MEDICATION WASTE Product Size: 2 mg Product Wasted: ___ mg oxyCODONE No Notes: Memori a immediate 06-13 (Same as: l release 06:42: Roxicodone ) ondansetron No Notes: Christiano sarthak 06-13 (Same as: l 06:42: Zofran) MEDICATION WASTE Product Size: 4 mg Product Wasted: ___ mg lidocaine No Notes: Memori a 1% 06-13 Preservati l injectable 06:42: ve free. Her hogan solution (Same as: Xylocaine MPF) lidocaine No Notes: Memori a 1% -13 Preservati l 06:42: ve free. [place] (Same as: Xylocaine MPF) terbutaline No Notes: Christiano sarthak 06-13 DO NOT l 06:42: USE IN MORTGAGE LOAN SPECIALIST AREA (Same As: Brethine) Dermoplast No Notes: Memor ia Pain 06-13 (Same As: l Relieving 06:42: Dermoplast He rmann 20%-0.5% ) WASTE: topical Aerosol - spray Return to Pharmacy FOR EXTERNAL USE ONLY oxytocin 30 No Notes: Christiano sarthak units in NS 06-13 Hazardous l 500 mL 06:42: Drug Group Jeanna nn (Titrate) 00 3:Reproduc IV 30 unit tive risk Hazardous Drug -- Refer to safe handling procedure PPE Matrix Cervidil No Notes: Memoria 06-13 (Same as: l 06:42: Cervidil) Hazardous Drug Group 3:Reproduc tive risk Hazardous Drug -- Refer to safe handling procedure PPE Matrix Keflex 500 Yes 500 mg = 1 M emoria mg oral 813 cap, PO, l capsule 16:05: QID, X 10 Jeanna nn 00 day, # 40 cap, 0 Refill(s), Pharmacy: [facility] #[id number], 160.02, cm, 05/11/22 21:15:00 CDT, Height, 78.182, kg, 08/11/22 21:15:00 CDT, Weight Pepcid 40 No Notes: Memori a mg oral 8-13 (Same as: l tablet 07:05: Pepcid) Rocephin + No Notes: Memor ia sterile 8-12 (Same As: l water 10 mL 23:00: Rocephin). Use with 100 mL NS and infuse over 30 min MEDICATION WASTE Product Size: 1000 mg Product Wasted: ___ mg multivitami No 1 tab, Christiano sarthak n, 12 Route: PO, l 14:00: Drug Form: TAB, Dosing Weight 78.182, kg, Daily, Start date: 05/12/22 9:00:00 CDT, Duration: 30 day, Stop date: 06/10/22 9:00:00 CDT, 0 Rocephin + No Notes: Memor ia sterile 8-12 (Same As: l water 10 mL 11:00: Rocephin). Use with 100 mL NS and infuse over 30 min MEDICATION WASTE Product Size: 1000 mg Product Wasted: ___ mg Zofran ODT No Notes: Memor ia 8-12 (Same as: l 03:43: Zofran ODT) Benadryl No Notes: Memoria 8-12 (Same as: l 02:52: Benadryl) Tylenol No Notes: Do Memor ia 8-12 not exceed l 02:52: 4 gm/day. (Same as: Tylenol) Tylenol No Notes: Max Christiano sarthak 8-11 acetaminop l 12:36: hen 4000 mg/day (4 gm/day). (Same as: Tylenol Extra Strength) DOCUSATE Yes Take by [facility] CALCIUM PO [...] Health Fum-FA-DHA 09:45: ( 1 27 PO) Acetaminoph Yes Notes: Do M emoria en 1-15 not exceed l 00:35: 4 gm/day. 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 ity of (TRAZODONE 15:52: [place] ORAL) [address] [place] [address] Branch trazodone 2020-10 Yes Take by Unive rs HCl 2-07 mouth. ity of (TRAZODONE 15:52: [place] ORAL) 14 Medical Branch trazodone 2020-10 Yes Take by Unive rs HCl 2-07 mouth. ity of (TRAZODONE 15:52: [place] ORAL) 14 Medical Branch ibuprofen 2020-10 Yes 600 mg = 1 Me moria 600 mg oral -14 tab, PO, l tablet 10:59: Q8H, PRN Antione 00 pain, X 5 day, # 30 tab, 0 Refill(s) Acetaminoph 2020-10 No Notes: Christiano sarthak en 325 MG / -14 (acetamino l butalbital 10:07: phen-butal H ermann 50 MG / 00 bital-caff Caffeine 40 eine MG Oral 325-50-40m Tablet g) Do not [Esgic] exceed 4 gm/day of acetaminop hen. (Same as: Esgic, Fioricet) escitalopra Yes Take by Uni vers m oxalate 7-14 mouth. ity of (LEXAPRO 14:44: [place] ORAL) 55 Medical [facility] escitalopra Yes Take by Uni vers m oxalate 7-14 mouth. ity of (LEXAPRO 14:44: [place] ORAL) 55 Medical Branch escitalopra Yes Take by Uni vers m oxalate 7-14 mouth. ity of (LEXAPRO 14:44: [place] ORAL) 55 Medical Branch traMADol 50 2020- No [id number] 50mg Take 1 Univers mg tablet 03-19- tablet by ity of 00:00: 00:00 mouth [place] 00 :00 every 6 Medical (six) Branch hours as needed (PAIN). ondansetron 2020- No [id number] 4mg Take 1 Univers 4 mg tablet 03-19- tablet by it y of 00:00: 00:00 mouth [place] 00 :00 every 8 Medical (eight) Branch hours as needed for Nausea and Vomiting (N/V). traMADol 50 2020- No [id number] 50mg Take 1 Univers mg tablet 03-19- tablet by ity of 00:00: 00:00 mouth [place] 00 :00 every 6 Medical (six) Branch hours as needed (PAIN). ondansetron 2020- No [id number] 4mg Take 1 Univers 4 mg tablet 03-19 tablet by it y of 00:00: 00:00 mouth [place] 00 :00 every 8 Medical (eight) Branch hours as needed for Nausea and Vomiting (N/V). Immunizations Ordered Immunization Filled Immunization Date Status Commen ts Source Name Name diphtheria/pertussis 2022-06-17 Completed Christiano rial , acel/tetanus adult 19:17:00 Herm nakul Vital Signs Vital Name Observation Time Observation Value Comments Source Body height 2021-12-09 15:39:00 160 [facility] 2021-12-09 15:39:[facility] 2021-12-09 15:39:00 26.22 kg[facility] Body mass index 2021-12-09 15:39:00 85.43 % [facility] (BMI) [Percentile] Per age and sex Systolic blood 2021-09-06 21:45:00 100 mm[Hg] Univer sity of pressure [facility] Diastolic blood 2021-09-06 21:45:00 69 mm[Hg] Unive rsity of pressure [facility] Heart rate 2021-09-06 21:45:00 97 /min [facility] Body temperature 2021-09-06 21:45:00 [facility].72 [facility] 2021-09-06 21:45:00 18 /min [facility] Body height 2021-09-06 21:45:00 160 cm [facility] Body weight 2021-09-06 21:45:00 66.044 kg [facility] BMI 2021-09-06 21:45:00 25.79 kg/m2 [facility] Body mass index 2021-09-06 21:45:00 84.16 % Unive rsity of (BMI) [Percentile] [facility] ical Per age and sex Branch Oxygen saturation in 2021-09-06 21:45:00 99 /min [facility] Arterial blood by [facility] Pulse oximetry Branch Temperature Oral (F) 2022-06-17 12:30:00 97.8 F [facility] Heart Rate 2022-06-17 12:30:00 [facility] [place] Respitory Rate 2022-06-17 12:30:00 Memori al [place] Systolic (mm Hg) 2022-06-17 12:30:00 Christiano rial [place] Diastolic (mm Hg) 2022-06-17 12:30:00 Mem orial [place] Temperature Oral (F) 2022-06-17 05:00:00 98 F [facility] [place] Heart Rate 2022-06-17 05:00:00 [facility] [place] Respitory Rate 2022-06-17 05:00:00 Memori al [place] Systolic (mm Hg) 2022-06-17 05:00:00 Christiano rial [place] Diastolic (mm Hg) 2022-06-17 05:00:00 Mem orial [place] Temperature Oral (F) 2022-06-16 21:00:00 98.1 F [facility] [place] Heart Rate 2022-06-16 21:00:00 [facility] [place] Respitory Rate 2022-06-16 21:00:00 Memori al [place] Systolic (mm Hg) 2022-06-16 21:00:00 Christiano rial [place] Diastolic (mm Hg) 2022-06-16 21:00:00 Mem orial [place] Height 2022-06-09 13:47:00 160.02 cm [facility] [place] Weight 2022-06-09 13:47:00 [facility] [place] BMI Calculated 2022-06-09 13:47:00 Memori al [place] Systolic (mm Hg) 2022-05-26 04:12:00 Christiano rial [place] Diastolic (mm Hg) 2022-05-26 04:12:00 [facility] Systolic (mm Hg) 2022-05-26 04:00:00 Christiano rial [facility] Diastolic (mm Hg) 2022-05-26 04:00:00 [facility] Systolic (mm Hg) 2022-05-26 03:30:00 Christiano [facility] Diastolic (mm Hg) 2022-05-26 03:30:00 [facility] Height 2022-05-26 00:20:00 160.02 cm [facility] BMI Calculated 2022-05-26 00:20:00 [facility] Weight 2022-05-26 00:20:00 [facility] Heart Rate 2022-05-26 00:20:00 [facility] Respitory Rate 2022-05-26 00:20:00 [facility] Temperature Oral (F) 2022-05-26 00:20:00 98.1 F [facility] Heart Rate 2022-05-13 15:29:07 [facility] Respitory Rate 2022-05-13 15:29:07 [facility] Temperature Oral (F) 2022-05-13 15:28:58 98.6 F [facility] Systolic (mm Hg) 2022-05-13 15:28:51 Christiano [facility] Diastolic (mm Hg) 2022-05-13 15:28:51 [facility] Heart Rate 2022-05-13 15:28:51 [facility] Heart Rate 2022-05-13 11:20:26 [facility] Respitory Rate 2022-05-13 11:20:26 [facility] Temperature Oral (F) 2022-05-13 11:20:23 98 F [facility] Systolic (mm Hg) 2022-05-13 11:20:04 Christiano [facility] Diastolic (mm Hg) 2022-05-13 11:20:04 [facility] Respitory Rate 2022-05-13 06:53:47 [facility] Temperature Oral (F) 2022-05-13 06:53:43 98.6 F [facility] Systolic (mm Hg) 2022-05-13 06:53:37 Christiano [facility] Diastolic (mm Hg) 2022-05-13 06:53:37 [facility] Height 2022-05-12 02:15:00 160.02 cm [facility] Weight 2022-05-12 02:15:00 [facility] BMI Calculated 2022-05-12 02:15:00 [facility] Systolic (mm Hg) 2022-05-11 13:00:00 Christiano [facility] Diastolic (mm Hg) 2022-05-11 13:00:00 [facility] Height 2022-05-11 11:58:00 160.02 cm [facility] BMI Calculated 2022-05-11 11:58:00 [facility] Weight 2022-05-11 11:58:00 [facility] Systolic (mm Hg) 2022-05-11 11:58:00 Christiano [facility] Diastolic (mm Hg) 2022-05-11 11:58:00 [facility] Heart Rate 2022-05-11 11:58:00 [facility] Respitory Rate 2022-05-11 11:58:00 [facility] Temperature Oral (F) 2022-05-11 11:58:00 97.3 F [facility] Systolic (mm Hg) 2022-03-24 02:16:00 Christiano [facility] Diastolic (mm Hg) 2022-03-24 02:16:00 [facility] Systolic (mm Hg) 2022-03-24 01:45:00 Christiano [facility] Diastolic (mm Hg) 2022-03-24 01:45:00 [facility] Systolic (mm Hg) 2022-03-24 01:06:00 Christiano [facility] Diastolic (mm Hg) 2022-03-24 01:06:00 [facility] Height 2022-03-24 00:28:00 160.02 cm [facility] BMI Calculated 2022-03-24 00:28:00 [facility] Weight 2022-03-24 00:28:00 [facility] Heart Rate 2022-03-24 00:28:00 [facility] Respitory Rate 2022-03-24 00:28:00 [facility] Temperature Oral (F) 2022-03-24 00:28:00 98.3 F [facility] Height 2021-10-15 00:25:00 160.02 cm [facility] BMI Calculated 2021-10-15 00:25:00 [facility] Weight 2021-10-15 00:25:00 [facility] Systolic (mm Hg) 2021-10-15 00:25:00 Christiano [facility] Diastolic (mm Hg) 2021-10-15 00:25:00 [facility] Heart Rate 2021-10-15 00:25:00 [facility] Respitory Rate 2021-10-15 00:25:00 [facility] Temperature Oral (F) 2021-10-15 00:25:00 100.3 F [facility] Respitory Rate 2021-08-14 12:30:00 [facility] Systolic (mm Hg) 2021-08-14 12:30:00 Christiano [facility] Diastolic (mm Hg) 2021-08-14 12:30:00 [facility] Respitory Rate 2021-08-14 12:00:00 [facility] Systolic (mm Hg) 2021-08-14 12:00:00 Christiano [facility] Diastolic (mm Hg) 2021-08-14 12:00:00 [facility] Respitory Rate 2021-08-14 11:30:00 [facility] Systolic (mm Hg) 2021-08-14 11:30:00 Christiano [facility] Diastolic (mm Hg) 2021-08-14 11:30:00 [facility] Height 2021-08-14 08:07:[address] [facility] 2021-08-14 08:07:00 [facility] Weight 2021-08-14 08:07:[address] [facility] Heart Rate 2021-08-14 08:07:[address] [facility] Temperature Oral (F) 2021-08-14 08:07:00 97.8 F [facility] Procedures Procedure Date / Time Performed Performing Clinician [facility] mathew POCT TEST 2021-09-06 21:55:00 Sherri Oconnor [facility] Admission to [facility] surgery department<sup>1</sup > Encounters Start End Encounter Admission Attending Care Care Encounter Source Date/Time Date/Time Type Type Clinicians Facility Department ID 2022-06-12 Inpatient COONEY, [facility] [id number] [facility] 23:58:00 ASHLEY 2021-12-09 Outpatient [facility] [id number] [place] 09:51:23 Health 2021-12-09 Outpatient [facility] [id number] [place] 09:50:50 Health 2021-12-09 Outpatient [facility] [id number] [place] 09:50:50 Health 2021-12-08 Outpatient [facility] [id number] [place] 15:51:55 Health 2021-12-07 Outpatient [facility] [id number] [place] 09:07:02 Health 2022-06-13 2022-06-17 Inpatient [facility]Fl[facility] [id number] Memoria 04:58:00 21:40:[address] [facility] 2022-06-12 2022-06-17 Outpatient Eros [facility] [id number] 23:58:00 16:40:00 Ashley Padgett 2022-06-15 2022-06-15 Outpatient [facility] [id number] [place] 00:45:00 00:45:00 Health 2022-06-12 2022-06-12 Outpatient COH COH PIJFJTE OXM COH 00:00:00 00:00:00 [id number] 2022-06-11 2022-06-11 Outpatient Eros [facility] [id number] 21:00:00 21:00:00 Ashley Padgett 2022-05-26 2022-05-26 Emergency [facility]Fl[facility] [id number] Memoria 00:10:34 04:15:[address] [facility] 2022-05-25 2022-05-25 Outpatient Stefan [facility] [id number] 19:10:34 23:15:00 Suneet 2022-05-25 2022-05-25 Emergency E STEFAN, [facility] [id number] [facility] 19:10:00 23:15:00 SUNEET 2022-05-12 2022-05-13 Observatio [facility] [id number] Memoria 02:51:00 18:00:[address] [facility] 2022-05-11 2022-05-13 Outpatient Rosie [facility] [id number] 21:51:00 13:00:00 Serene 2022-05-11 2022-05-13 Outpatient Rosie, [facility] [id number] 21:51:00 13:00:00 Serene 2022-05-11 2022-05-13 Outpatient U ROSIE [facility] [id number] [facility] 21:51:00 13:00:00 SERENE 2022-05-11 2022-05-11 Emergency [facility]Fl[facility] [id number] Memoria 11:43:57 13:15:00 r Cordova [address] [facility] 2022-05-11 2022-05-11 Outpatient Carlos [facility] [id number] 06:43:57 08:15:00 Danny George 2022-05-11 2022-05-11 Emergency Mathew GONZALEZ [facility] [id number] [facility] 06:43:00 08:15:00 DANNY 2022-03-24 2022-03-24 Emergency [facility] [id number] Memoria 00:17:28 02:43:00 r Cordova [address] [facility] 2022-03-23 2022-03-23 Outpatient Carlos [facility] [id number] 19:17:28 21:43:00 Danny George 2022-03-23 2022-03-23 Emergency Mathew GONZALEZ, [facility] [id number] [facility] 19:17:00 21:43:00 DANNY 2022-01-19 2022-01-19 Telephone Wade, [facility] [id number] [place] 00:00:00 00:00:[address] [id number] Health 9.2.7.2.686 [id number] 2022-01-05 2022-01-05 Telephone Olvera, [facility] [id number] [place] 00:00:00 00:00:[address] [id number] Health 9.2.7.2.686 [id number] 2021-12-26 2021-12-26 Telephone Olvera, [facility] 6410 [id number] [place] 00:00:00 00:00:[address] [id number] Health 9.2.7.2.686 [id number] 2021-12-21 2021-12-21 Telephone Wade, [facility] 6410 [id number] [place] 00:00:00 00:00:[address] [id number] Health 9.2.7.2.686 [id number] 2021-12-09 2021-12-09 Nurse Only Lexy Paulson [facility] 6410 1.2.840. 114 [id number] [place] 00:00:00 00:00:[address] [id number] Health 9.2.7.2.686 [id number] 2021-12-08 2021-12-08 Education Counselor, [facility] 6410 [id number] [place] 14:00:00 15:00:[address] 350.1.13.58 Health Genetic 9.2.7.2.686 [id number] 2021-10-19 2021-10-19 Outpatient SHERRI SNELL [facility] [id number] Univers 09:00:00 09:00:00 [facility] 2021-10-15 2021-10-15 Emergency [facility] [id number] Memoria 00:13:06 03:05:00 r Cordova 01 l [facility] 2021-10-14 2021-10-14 Outpatient Ariadne, [facility] [id number] 18:13:06 21:05:[address] 2021-10-14 2021-10-14 Emergency E ARIADNE, [facility]BL MHBL [id number] [facility]BL 18:13:00 21:05:00 [facility] 2021-10-11 2021-10-11 Outpatient SHERRI SNELL [facility] [id number] Univers 15:45:00 15:45:00 [facility] 2021-09-21 2021-09-21 Outpatient Hunter JORDAN [facility] [id number] Univers 14:30:00 15:10:35 CAREN [facility] 2021-09-21 2021-09-21 Laboratory Only, Ang Db Test [facility] 1.2.8 40.114 [id number] Univers 14:30:00 14:45:00 Only Caren Jordan [facility]13.10 [facility] 4.2.7.2.686 Emery as COLE?BLEA [id number] Tn jossue CARDONA [address] [place] MEDICAL OFFICE [facility] 2021-09-07 2021-09-07 Outpatient R SHERRI OCONNOR [facility] [id number] Univers 09:00:00 09:00:00 ity of [facility] 2021-09-07 2021-09-07 Outpatient SHERRI SNELL [facility] [id number] Univers 09:00:00 09:00:00 ity of [facility] 2021-09-06 2021-09-06 Outpatient R SHERRI OCONNOR [facility] [id number] Univers 16:45:00 16:45:00 ity of [facility] 2021-09-06 2021-09-06 Outpatient Hunter OCONNOR [facility] [id number] Univers 16:45:00 16:45:00 ity of [facility] 2021-09-06 2021-09-06 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 Kayy, Shruti Lab Main [facility] 1.2.8 40.114 [id number] Univers 16:28:59 16:43:59 Visit Sherri Oconnor Jose GARCIA 350.1.13.10 ity [place] [id number] Tn saadshazia BARRERA 353 [facility] 2021-09-06 2021-09-06 Office Kevin [facility] [id number] [id number] Univers 15:20:42 16:09:45 Visit Jose GARCIA 350.1.13.10 i [place] [id number] Tn dicshazia NAL 134 [facility] 2021-09-06 2021-09-06 Outpatient R SHERRI OCONNOR [facility] [id number] Univers 15:15:00 16:09:45 ity of [facility] 2021-09-06 2021-09-06 Orders Doctor NORRIS 1.2.840.114 [id number] Univers 00:00:00 00:00:00 Only Unassigned, TRICIA 350.1.13.10 ity of [place] [facility] 4.2.7.2.686 Emery as [id number] [address] 2021-08-14 2021-08-14 Emergency [facility] [id number] Memoria 08:00:28 13:00:00 hunter DriscollCordova 00 l [facility] 2021-08-14 2021-08-14 Outpatient Viet [facility] [id number] 02:00:28 07:00:00 Jeremías Barone 00 2021-02-02 2021-02-02 Outpatient Hunter CHRIS [facility] [id number] Univers 00:00:00 00:00:00 VALERIA tatum [facility] 2020-04-24 2020-04-24 [facility]patient [id number] Univers 08:00:00 08:00:00 CRISTAL tatum [facility] 2020-04-19 2020-04-19 Letter [facility] [id number] Univers 00:00:00 00:00:00 (Out) [employer] 350.1.13.10 it y of [place] 4.2.7.2.686 Emery as Professio [phone] Tn dicmd nal [address] [place] [address] Office [facility] One 2020-04-15 2020-04-15 Telephone [facility] 1.2.840.114 [id number] Univers 00:00:00 00:00:00 [facility] [employer] 350.1.13.10 it y of [place] 4.2.7.2.686 Emery as Professio [id number] Tn dical nal [address] [place] [address] One 2020-04-13 2020-04-13 Urgent Pob1, Acute Care Clinic [facility] 1. 2.840.114 [id number] Univers 14:39:08 14:59:08 Care Boubacar Duncana [facility] 350.1.13.10 ity of [place] 4.2.7.2.686 Emery as Professio [phone] Tn dicmd nal [address] [place] [address] One 2020-04-13 2020-04-13 Outpatient Hunter [facility] [id number] Univers 14:40:00 14:40:00 CRISTAL tatum [facility] 2020-03-19 2020-03-19 [facility] 1.2.018.578 [id number] Univers 08:59:46 12:08:00 Manuel Garcia 350.1.13.10 [facility] [place] 4.2.7.2.686 [facility] [id number] [place] [id number] [place] 2020-03-19 2020-03-19 Emergency X CLAYTON [facility] ERT [id number] [facility] 08:59:46 12:08:00 MANUEL tatum [facility] Results Test Description Test Time Test Comments Results Result Comments Source HEMATOLOGY 2022-06-16 03:26:00 Test Item Value Reference Range Interpretation Comme nts Hgb (test code = Hgb) 9.3 12.0-16.0 [id number] 03:26:00 Test Item Value Reference Range Interpretation Comments Hct (test code = Hct) 27.7 36.0-48.0 [facility]2022-09-14 21:06:00 Test Item Value Reference Range Interpretation Comments Glucose Lvl (test code = Glucose Lvl) 67 70-99 [facility]2022-09-14 21:06:00 Test Item Value Reference Range Interpretation Comments BUN (test code = BUN) 4 7-22 [facility]2022-09-14 21:06:00 Test Item Value Reference Range Interpretation Comments Creatinine Lvl (test code = Creatinine 0.47 0.50-1.40 Lvl) [facility]2022-09-14 21:06:00 Test Item Value Reference Range Interpretation Comments Sodium Lvl (test code = Sodium Lvl) 138 135-145 [facility]2022-09-14 21:06:00 Test Item Value Reference Range Interpretation Comments Potassium Lvl (test code = Potassium 3.9 3.5-5.1 Lvl) [facility]2022-09-14 21:06:00 Test Item Value Reference Range Interpretation Comments Chloride Lvl (test code = Chloride Lvl) 109 95-109 [facility]2022-09-14 21:06:00 Test Item Value Reference Range Interpretation Comments CO2 (test code = CO2) 24 24-32 [facility]2022-09-14 21:06:00 Test Item Value Reference Range Interpretation Comments Calcium Lvl (test code = Calcium Lvl) 8.8 8.5-10.5 [facility]2022-09-14 21:06:00 Test Item Value Reference Range Interpretation Comments Total Protein (test code = Total 6.2 6.4-8.4 Protein) [facility] [place] [id number] 21:06:00 Test Item Value Reference Range Interpretation Comments Albumin Lvl (test code = Albumin Lvl) 2.5 3.5-5.[address] [facility] [address] [id number] 21:06:00 Test Item Value Reference Range Interpretation Comments ALT (test code = ALT) 9 See_Comment [Auto mated message] The system which ge nerated this result transmit ross reference range : <=65. The reference range was not used to interpr et this result as corrine l/abnormal. [facility] [id number] 21:06:00 Test Item Value Reference Range Interpretation Comments AST (test code = AST) 14 See_Comment [Auto mated message] The system which ge nerated this result transmit ross reference range : <=37. The reference range was not used to interpr et this result as corrine l/abnormal. [facility] [id number] 21:06:00 Test Item Value Reference Range Interpretation Comments Alk Phos (test code = Alk Phos) 156 39-136 [facility] [employer] [id number] 21:06:00 Test Item Value Reference Range Interpretation Comments Bili Total (test code = Bili Total) 1.0 0.2-1.[address] [facility] [address] [id number] 21:06:00 Test Item Value Reference Range Interpretation Comments AGAP (test code = AGAP) 8.9 10.0-20.[address] [facility] [address] [id number] 21:06:00 Test Item Value Reference Range Interpretation Comments B/C Ratio (test code = B/C Ratio) 9 1 6-[address] [facility] [id number] 21:06:00 Test Item Value Reference Range Interpretation Comments Globulin (test code = Globulin) 3.7 2.7-4.[address] [facility] [id number] 21:06:00 Test Item Value Reference Range Interpretation Comments A/G Ratio (test code = A/G Ratio) 0.7 1 0.7-1.[address] [facility] [address] [id number] 21:06:00 Test Item Value Reference Range Interpretation Comments eGFR (test code = eGFR) 141 [facility] [employer] [id number] 21:06:00 Test Item Value Reference Range Interpretation Comments Amylase Lvl (test code = Amylase Lvl) 40 25-115 [facility] [employer] [id number] 21:06:00 Test Item Value Reference Range Interpretation Comments Lipase Lvl (test code = Lipase Lvl) 77 73-[address] [facility] [id number] 02:08:00 Test Item Value Reference Range Interpretation Comments PT (test code = PT) 12.9 s 12.0-14.7 [facility] [id number] 02:08:00 Test Item Value Reference Range Interpretation Comments INR (test code = INR) 0.98 1 0.85-1.[address] [facility] [address] [id number] 02:08:00 Test Item Value Reference Range Interpretation Comments PTT (test code = PTT) 29.0 s 22.9-35.8 [facility] Prized [id number] 06:51:00 Test Item Value Reference Range Interpretation Comments ABO/Rh (test code = ABO/Rh) O POS [facility] Prized [id number] 06:51:00 Test Item Value Reference Range Interpretation Comments Antibody Scrn (test Negative (06/13/22 1:51 code = Antibody Scrn) AM) [facility] [id number] 06:51:00 Test Item Value Reference Range Interpretation Comments WBC (test code = WBC) 11.9 3.7-10.[address] [facility] HospitalGunasnxEEYRNSBJNM9551-08-10 06:51:00 Test Item Value Reference Range Interpretation Comments RBC (test code = RBC) 3.90 4.20-5.40 [facility] [id number] 06:51:00 Test Item Value Reference Range Interpretation Comments Hgb (test code = Hgb) 10.9 12.0-16.0 [facility] [id number] 06:51:00 Test Item Value Reference Range Interpretation Comments Hct (test code = Hct) 32.8 36.0-48.[address] [facility] [id number] 06:51:00 Test Item Value Reference Range Interpretation Comments MCV (test code = MCV) 84.0 80.0-98.0 [place] [id number] 06:51:00 Test Item Value Reference Range Interpretation Comments MCH (test code = MCH) 28.0 pg 27.0-31.0 [place] [id number] 06:51:00 Test Item Value Reference Range Interpretation Comments MCHC (test code = MCHC) 33.3 32.0-36.0 [id number] 06:51:00 Test Item Value Reference Range Interpretation Comments RDW (test code = RDW) 13.5 11.5-14.5 [place] [id number] 06:51:00 Test Item Value Reference Range Interpretation Comments Platelet (test code = Platelet) 199 133-450 [facility] CenterErwyisjAFBUBYOUCJ0669-55-09 06:51:00 Test Item Value Reference Range Interpretation Comments MPV (test code = MPV) 10.5 7.4-10.4 [facility] CenterWmyqhefIXZYBJYFQT7453-83-58 06:51:00 Test Item Value Reference Range Interpretation Comments Segs (test code = Segs) 78.3 45.0-75.0 [place] [id number] 06:51:00 Test Item Value Reference Range Interpretation Comments Lymphocytes (test code = Lymphocytes) 13.8 20.0-40.0 [facility] [id number] 06:51:00 Test Item Value Reference Range Interpretation Comments Monocytes (test code = Monocytes) 6.7 2.0-12.0 [place] [id number] 06:51:00 Test Item Value Reference Range Interpretation Comments Eosinophils (test code = 0.9 See_Comment [A utomated message] The Eosinophils) system which ge nerated this result tra nsmitted reference range : <=4.0. The reference r socorro was not used to int erpret this result as normal/abnormal . [place] [id number] 06:51:00 Test Item Value Reference Range Interpretation Comments Basophils (test code = 0.3 See_Comment [Aut omated message] The Basophils) system which ge nerated this result tra nsmitted reference range : <=1.0. The reference r socorro was not used to int erpret this result as normal/abnormal . [place] [id number] 06:51:00 Test Item Value Reference Range Interpretation Comments Neutrophils # (test code = Neutrophils 9.3 1.5-8.1 #) [id number] 06:51:00 Test Item Value Reference Range Interpretation Comments Lymphocytes # (test code = Lymphocytes 1.6 1.0-5.5 #) [facility] [id number] 06:51:00 Test Item Value Reference Range Interpretation Comments Monocytes # (test code 0.8 See_Comment [Aut omated message] The = Monocytes #) system which generated this result tra nsmitted reference range : <=0.8. The reference r socorro was not used to int erpret this result as normal/abnormal . [facility] [id number] 06:51:00 Test Item Value Reference Range Interpretation Comments Eosinophils # (test code 0.1 See_Comment [A utomated message] The = Eosinophils #) system whic h generated this result tra nsmitted reference range : <=0.5. The reference r socorro was not used to int erpret this result as normal/abnormal . [id number] 06:51:00 Test Item Value Reference Range Interpretation Comments Hep Bs Ag (test code Negative *NA*(06/13/22 = Hep Bs Ag) 1:51 AM) [facility] [id number] 06:51:00 Test Item Value Reference Range Interpretation Comments HIV Ag/Ab 4th Gen Negative *NA*(06/13/22 (test code = HIV 1:51 AM) Ag/Ab 4th Gen) [facility] [id number] 06:51:00 Test Item Value Reference Range Interpretation Comments Treponemal Ab (test code Non-Reactive = Treponemal Ab) *NA*(06/13/22 1:51 AM) [id number] 13:49:00 Test Item Value Reference Range Interpretation Comments Coronavirus (COVID-19) Detected *ABN*(06/09/22 LUCY (test code = 8:49 AM) Coronavirus (COVID-19) LUCY) [facility] AND [id number] 02:15:00 Test Item Value Reference Range Interpretation Comments UA Color (test code = Yellow *NA*(05/25/22 UA Color) 9:15 PM) [facility] AND [id number] 02:15:00 Test Item Value Reference Range Interpretation Comments UA Turbidity (test code Slight Cloudy = UA Turbidity) (05/25/22 9:15 PM) [facility] AND [id number] 02:15:00 Test Item Value Reference Range Interpretation Comments UA Spec Grav (test code = UA Spec 1.015 1 Grav) [facility] AND [id number] 02:15:00 Test Item Value Reference Range Interpretation Comments UA pH (test code = UA pH) 6.5 1 5.0-8.0 [facility] AND [id number] 02:15:00 Test Item Value Reference Range Interpretation Comments UA Protein (test code Negative (05/25/22 9:15 = UA Protein) PM) [facility] AND [id number] 02:15:00 Test Item Value Reference Range Interpretation Comments UA Glucose (test code Negative (05/25/22 9:15 = UA Glucose) PM) [facility] AND [id number] 02:15:00 Test Item Value Reference Range Interpretation Comments UA Ketones (test code Negative *NA*(05/25/22 = UA Ketones) 9:15 PM) [facility] AND [id number] 02:15:00 Test Item Value Reference Range Interpretation Comments UA Bili (test code = Negative *NA*(05/25/22 UA Bili) 9:15 PM) [facility] AND [id number] 02:15:00 Test Item Value Reference Range Interpretation Comments UA Blood (test code = Negative (05/25/22 9:15 UA Blood) PM) [facility] AND [id number] 02:15:00 Test Item Value Reference Range Interpretation Comments UA Urobilinogen (test code = UA 0.2 0.1-1.0 Urobilinogen) [facility] AND [id number] 02:15:00 Test Item Value Reference Range Interpretation Comments UA Nitrite (test code Negative (05/25/22 9:15 = UA Nitrite) PM) [facility] AND [id number] 02:15:00 Test Item Value Reference Range Interpretation Comments UA Leuk Est (test code Small *ABN*(05/25/22 = UA Leuk Est) 9:15 PM) [facility] AND [id number] 02:15:00 Test Item Value Reference Range Interpretation Comments UA Sq Epi (test code = UA Sq Epi) Many /LPF [facility] AND [id number] 02:15:00 Test Item Value Reference Range Interpretation Comments UA WBC (test code = 8 See_Comment [Automa ross message] The UA WBC) system which ge nerated this result transmit ross reference range : <=5. The reference range was not used to interpr et this result as corrine l/abnormal. [facility] AND [id number] 02:15:00 Test Item Value Reference Range Interpretation Comments UA RBC (test code = 2 See_Comment [Automa ross message] The UA RBC) system which ge nerated this result transmit ross reference range : <=2. The reference range was not used to interpr et this result as corrine l/abnormal. [facility] AND [id number] 02:15:00 Test Item Value Reference Range Interpretation Comments UA Bacteria (test code = UA Occasional /HPF Bacteria) [facility] AND [id number] 02:15:00 Test Item Value Reference Range Interpretation Comments UA Mucus (test code = UA Mucus) Few /LPF [place] [id number] 02:15:00 Test Item Value Reference Range Interpretation Comments U Creatinine (test code = U Creatinine) 67.60 [place] [id number] 02:15:00 Test Item Value Reference Range Interpretation Comments U Protein (test code = U Protein) 12.1 [place] [id number] 02:15:00 Test Item Value Reference Range Interpretation Comments U Prot/Creat (test code = U 0.18 1 Prot/Creat) [place] 241742-08-26 01:12:00 Test Item Value Reference Range Interpretation Comments Glucose Lvl (test code = Glucose Lvl) 82 70-99 [facility]2022-08-26 01:12:00 Test Item Value Reference Range Interpretation Comments BUN (test code = BUN) 7 7-22 [place] 241742-08-26 01:12:00 Test Item Value Reference Range Interpretation Comments Creatinine Lvl (test code = Creatinine 0.51 0.50-1.40 Lvl) [place] [address]-08-26 01:12:00 Test Item Value Reference Range Interpretation Comments Sodium Lvl (test code = Sodium Lvl) 138 135-145 [place] 241742-08-26 01:12:00 Test Item Value Reference Range Interpretation Comments Potassium Lvl (test code = Potassium 4.1 3.5-5.1 Lvl) [place] 241742-08-26 01:12:00 Test Item Value Reference Range Interpretation Comments Chloride Lvl (test code = Chloride Lvl) 108 95-109 [place] [address]-08-26 01:12:00 Test Item Value Reference Range Interpretation Comments CO2 (test code = CO2) 20 24-32 [place] [address]-08-26 01:12:00 Test Item Value Reference Range Interpretation Comments Calcium Lvl (test code = Calcium Lvl) 9.2 8.5-10.5 [place] 241742-08-26 01:12:00 Test Item Value Reference Range Interpretation Comments Total Protein (test code = Total 6.8 6.4-8.4 Protein) [place] [address]-08-26 01:12:00 Test Item Value Reference Range Interpretation Comments Albumin Lvl (test code = Albumin Lvl) 2.8 3.5-5.0 [place] 241742-08-26 01:12:00 Test Item Value Reference Range Interpretation Comments ALT (test code = ALT) 14 See_Comment [Auto mated message] The system which ge nerated this result transmit ross reference range : <=65. The reference range was not used to interpr et this result as corrine l/abnormal. [place] 241742-08-26 01:12:00 Test Item Value Reference Range Interpretation Comments AST (test code = AST) 21 See_Comment [Auto mated message] The system which ge nerated this result transmit ross reference range : <=37. The reference range was not used to interpr et this result as corrine l/abnormal. [place] [address]-08-26 01:12:00 Test Item Value Reference Range Interpretation Comments Alk Phos (test code = Alk Phos) 140 39-136 [place] 241742-08-26 01:12:00 Test Item Value Reference Range Interpretation Comments Bili Total (test code = Bili Total) 0.7 0.2-1.3 [place] 241742-08-26 01:12:00 Test Item Value Reference Range Interpretation Comments AGAP (test code = AGAP) 14.1 10.0-20.0 [place] 241742-08-26 01:12:00 Test Item Value Reference Range Interpretation Comments B/C Ratio (test code = B/C Ratio) 14 1 6-25 [place] 241742-08-26 01:12:00 Test Item Value Reference Range Interpretation Comments Globulin (test code = Globulin) 4.0 2.7-4.2 [place] 241742-08-26 01:12:00 Test Item Value Reference Range Interpretation Comments A/G Ratio (test code = A/G Ratio) 0.7 1 0.7-1.6 [place] 241742-08-26 01:12:00 Test Item Value Reference Range Interpretation Comments eGFR (test code = eGFR) 138 [place] 168652-08-26 01:12:00 Test Item Value Reference Range Interpretation Comments WBC (test code = WBC) 11.7 3.7-10.4 [place] 168652-08-26 01:12:00 Test Item Value Reference Range Interpretation Comments RBC (test code = RBC) 3.92 4.20-5.40 [place] 168652-08-26 01:12:00 Test Item Value Reference Range Interpretation Comments Hgb (test code = Hgb) 11.3 12.0-16.0 [place] [address]-08-26 01:12:00 Test Item Value Reference Range Interpretation Comments Hct (test code = Hct) 33.9 36.0-48.0 [place] [address]-08-26 01:12:00 Test Item Value Reference Range Interpretation Comments MCV (test code = MCV) 86.6 80.0-98.0 [place] [address]-08-26 01:12:00 Test Item Value Reference Range Interpretation Comments MCH (test code = MCH) 28.7 pg 27.0-31.0 [place] 168652-08-26 01:12:00 Test Item Value Reference Range Interpretation Comments MCHC (test code = MCHC) 33.2 32.0-36.0 [id number] 01:12:00 Test Item Value Reference Range Interpretation Comments RDW (test code = RDW) 12.9 11.5-14.5 [facility] C[id number] 01:12:00 Test Item Value Reference Range Interpretation Comments Platelet (test code = Platelet) 225 133-450 [facility] CenterQudtvjeLCBZYAJLDF0508-55-70 01:12:00 Test Item Value Reference Range Interpretation Comments MPV (test code = MPV) 10.8 7.4-10.4 [place] 168652-08-26 01:12:00 Test Item Value Reference Range Interpretation Comments Segs (test code = Segs) 80.2 45.0-75.0 [facility] CenterAkmuhmcGRTWPRBPIE7701-17-17 01:12:00 Test Item Value Reference Range Interpretation Comments Lymphocytes (test code = Lymphocytes) 10.6 20.0-40.0 [facility] CenterWzmosdrHDTXWBPUSH9891-27-13 01:12:00 Test Item Value Reference Range Interpretation Comments Monocytes (test code = Monocytes) 7.6 2.0-12.0 [facility] CenterXgiqpcoJMFVZFMWND5637-95-14 01:12:00 Test Item Value Reference Range Interpretation Comments Eosinophils (test code = 1.1 See_Comment [A utomated message] The Eosinophils) system which ge nerated this result tra nsmitted reference range : <=4.0. The reference r socorro was not used to int erpret this result as normal/abnormal . [facility] CenterBioispsIXKDZYNYAV6096-56-96 01:12:00 Test Item Value Reference Range Interpretation Comments Basophils (test code = 0.5 See_Comment [Aut omated message] The Basophils) system which ge nerated this result tra nsmitted reference range : <=1.0. The reference r socorro was not used to int erpret this result as normal/abnormal . [facility] CenterPtrjfwyDVOTBYAWKJ7561-75-31 01:12:00 Test Item Value Reference Range Interpretation Comments Neutrophils # (test code = Neutrophils 9.4 1.5-8.1 #) [facility] CenterXffipprIJPWZMOWYD6848-64-32 01:12:00 Test Item Value Reference Range Interpretation Comments Lymphocytes # (test code = Lymphocytes 1.2 1.0-5.5 #) [facility] CenterEpkcoxyXZHWDIMOCF0367-59-79 01:12:00 Test Item Value Reference Range Interpretation Comments Monocytes # (test code 0.9 See_Comment [Aut omated message] The = Monocytes #) system which generated this result tra nsmitted reference range : <=0.8. The reference r socorro was not used to int erpret this result as normal/abnormal . [facility] CenterRrdxlavEHFQQQEPCR7725-30-76 01:12:00 Test Item Value Reference Range Interpretation Comments Eosinophils # (test code 0.1 See_Comment [A utomated message] The = Eosinophils #) system whic h generated this result tra nsmitted reference range : <=0.5. The reference r socorro was not used to int erpret this result as normal/abnormal . [facility] CenterEnpxnxuIHLHVUHMMZ4423-26-46 01:12:00 Test Item Value Reference Range Interpretation Comments Basophils # (test code 0.1 See_Comment [Aut omated message] The = Basophils #) system which generated this result tra nsmitted reference range : <=0.2. The reference r socorro was not used to int erpret this result as normal/abnormal . [facility] CenterKdvisdsLHBONTVEIK3968-78-53 11:06:00 Test Item Value Reference Range Interpretation Comments WBC (test code = WBC) 9.2 3.7-10.4 [place] 168652-08-13 11:06:00 Test Item Value Reference Range Interpretation Comments RBC (test code = RBC) 3.47 4.20-5.40 [place] 168652-08-13 11:06:00 Test Item Value Reference Range Interpretation Comments Hgb (test code = Hgb) 10.6 12.0-16.0 [place] 168652-08-13 11:06:00 Test Item Value Reference Range Interpretation Comments Hct (test code = Hct) 30.4 36.0-48.0 [place] [address]-08-13 11:06:00 Test Item Value Reference Range Interpretation Comments MCV (test code = MCV) 87.6 80.0-98.0 [place] [address]-08-13 11:06:00 Test Item Value Reference Range Interpretation Comments MCH (test code = MCH) 30.5 pg 27.0-31.0 [place] 168652-08-13 11:06:00 Test Item Value Reference Range Interpretation Comments MCHC (test code = MCHC) 34.9 32.0-36.0 [facility] CenterNumgxehHKWZYDDRUQ7836-11-36 11:06:00 Test Item Value Reference Range Interpretation Comments RDW (test code = RDW) 13.0 11.5-14.5 [facility] CenterKpzarlaOHZEHUJRKV5131-25-42 11:06:00 Test Item Value Reference Range Interpretation Comments Platelet (test code = Platelet) 167 133-450 [place] 168652-08-13 11:06:00 Test Item Value Reference Range Interpretation Comments MPV (test code = MPV) 9.8 7.4-10.4 [facility] CenterCtbsuivDLOFHGPIXA2094-24-87 11:06:00 Test Item Value Reference Range Interpretation Comments Segs (test code = Segs) 71.5 45.0-75.0 [facility] CenterOddoueaATGJECQUML8213-42-69 11:06:00 Test Item Value Reference Range Interpretation Comments Lymphocytes (test code = Lymphocytes) 16.1 20.0-40.0 [place] 168652-08-13 11:06:00 Test Item Value Reference Range Interpretation Comments Monocytes (test code = Monocytes) 10.1 2.0-12.0 [facility] CenterWcroyjvTNMXEGKOLA0738-47-26 11:06:00 Test Item Value Reference Range Interpretation Comments Eosinophils (test code = 1.6 See_Comment [A utomated message] The Eosinophils) system which ge nerated this result tra nsmitted reference range : <=4.0. The reference r socorro was not used to int erpret this result as normal/abnormal . [facility] CenterSbaovthQFLKVJGHPL0623-48-59 11:06:00 Test Item Value Reference Range Interpretation Comments Basophils (test code = 0.7 See_Comment [Aut omated message] The Basophils) system which ge nerated this result tra nsmitted reference range : <=1.0. The reference r socorro was not used to int erpret this result as normal/abnormal . [facility] CenterEymoijxBEXTWBIVIL5604-28-56 11:06:00 Test Item Value Reference Range Interpretation Comments Neutrophils # (test code = Neutrophils 6.6 1.5-8.1 #) [facility] CenterGepzqrpMTPQSMEQZU0298-33-53 11:06:00 Test Item Value Reference Range Interpretation Comments Lymphocytes # (test code = Lymphocytes 1.5 1.0-5.5 #) [facility] CenterNxjvyqwYQHKGGUSIY3137-44-68 11:06:00 Test Item Value Reference Range Interpretation Comments Monocytes # (test code 0.9 See_Comment [Aut omated message] The = Monocytes #) system which generated this result tra nsmitted reference range : <=0.8. The reference r socorro was not used to int erpret this result as normal/abnormal . [facility] CenterHsiopriLDYCGWXQVF6796-47-55 11:06:00 Test Item Value Reference Range Interpretation Comments Eosinophils # (test code 0.1 See_Comment [A utomated message] The = Eosinophils #) system whic h generated this result tra nsmitted reference range : <=0.5. The reference r socorro was not used to int erpret this result as normal/abnormal . [place] [address]-08-13 11:06:00 Test Item Value Reference Range Interpretation Comments Basophils # (test code 0.1 See_Comment [Aut omated message] The = Basophils #) system which generated this result tra nsmitted reference range : <=0.2. The reference r socorro was not used to int erpret this result as normal/abnormal . [facility] CenterEpdnlopUYYMQCREOS7794-22-98 11:16:00 Test Item Value Reference Range Interpretation Comments Segs (test code = Segs) 82.3 45.0-75.0 [place] 168652-08-12 11:16:00 Test Item Value Reference Range Interpretation Comments Lymphocytes (test code = Lymphocytes) 10.8 20.0-40.0 [place] 168652-08-12 11:16:00 Test Item Value Reference Range Interpretation Comments Monocytes (test code = Monocytes) 6.0 2.0-12.0 [place] [address]-08-12 11:16:00 Test Item Value Reference Range Interpretation Comments Eosinophils (test code = 0.5 See_Comment [A utomated message] The Eosinophils) system which ge nerated this result tra nsmitted reference range : <=4.0. The reference r socorro was not used to int erpret this result as normal/abnormal . [facility] CenterNaallevVIJGFWAESA5149-89-73 11:16:00 Test Item Value Reference Range Interpretation Comments Basophils (test code = 0.4 See_Comment [Aut omated message] The Basophils) system which ge nerated this result tra nsmitted reference range : <=1.0. The reference r socorro was not used to int erpret this result as normal/abnormal . [facility] CenterZhpzaszKQQRNQIRSF4507-84-64 11:16:00 Test Item Value Reference Range Interpretation Comments Neutrophils # (test code = Neutrophils 9.2 1.5-8.1 #) [facility] CenterZtufeayGOEOZBMQNX7938-21-90 11:16:00 Test Item Value Reference Range Interpretation Comments Lymphocytes # (test code = Lymphocytes 1.2 1.0-5.5 #) [facility] CenterAogzqlfBNOGBNDHBW9211-98-98 11:16:00 Test Item Value Reference Range Interpretation Comments Monocytes # (test code 0.7 See_Comment [Aut omated message] The = Monocytes #) system which generated this result tra nsmitted reference range : <=0.8. The reference r socorro was not used to int erpret this result as normal/abnormal . [facility] CenterLeeyomkZFCQCSGBTY7146-85-12 11:16:00 Test Item Value Reference Range Interpretation Comments Eosinophils # (test code 0.1 See_Comment [A utomated message] The = Eosinophils #) system whic h generated this result tra nsmitted reference range : <=0.5. The reference r socorro was not used to int erpret this result as normal/abnormal . [facility] CenterBcufsokHLFADKBDGM1464-82-79 11:16:00 Test Item Value Reference Range Interpretation Comments WBC (test code = WBC) 11.2 3.7-10.4 [facility] CenterBayzhcuYPBAASPDZJ2524-09-66 11:16:00 Test Item Value Reference Range Interpretation Comments RBC (test code = RBC) 3.26 4.20-5.40 [place] 168652-08-12 11:16:00 Test Item Value Reference Range Interpretation Comments Hgb (test code = Hgb) 9.6 12.0-16.0 [place] 168652-08-12 11:16:00 Test Item Value Reference Range Interpretation Comments Hct (test code = Hct) 28.4 36.0-48.0 [place] 168652-08-12 11:16:00 Test Item Value Reference Range Interpretation Comments MCV (test code = MCV) 87.3 80.0-98.0 [facility] CenterUtnzvytYRESSBLSBM6333-13-42 11:16:00 Test Item Value Reference Range Interpretation Comments MCH (test code = MCH) 29.6 pg 27.0-31.0 [facility] CenterOpwewggSNCQHAJQNP4968-15-06 11:16:00 Test Item Value Reference Range Interpretation Comments MCHC (test code = MCHC) 33.9 32.0-36.0 [facility] CenterMkagrqsWVOKGLYKEW5657-81-72 11:16:00 Test Item Value Reference Range Interpretation Comments RDW (test code = RDW) 12.7 11.5-14.5 [facility] CenterXpmhzqqMEEMVTELEE4166-71-86 11:16:00 Test Item Value Reference Range Interpretation Comments Platelet (test code = Platelet) 171 133-450 [facility] CenterIkgalzoAGBYOBPNCD7584-01-11 11:16:00 Test Item Value Reference Range Interpretation Comments MPV (test code = MPV) 10.3 7.4-10.4 [facility] AND [id number] 05:20:00 Test Item Value Reference Range Interpretation Comments UA Color (test code = Yellow *NA*(05/12/22 UA Color) 12:20 AM) [facility] AND [id number] 05:20:00 Test Item Value Reference Range Interpretation Comments UA Turbidity (test code = Clear (05/12/22 12:20 UA Turbidity) AM) [facility] AND [id number] 05:20:00 Test Item Value Reference Range Interpretation Comments UA Spec Grav (test >=1.030 *ABN*(05/12/22 code = UA Spec Grav) 12:20 AM) [facility] AND [id number] 05:20:00 Test Item Value Reference Range Interpretation Comments UA pH (test code = UA pH) 6.0 1 5.0-8.0 [facility] AND [id number] 05:20:00 Test Item Value Reference Range Interpretation Comments UA Protein (test code Negative (05/12/22 12:20 = UA Protein) AM) [facility] AND [id number] 05:20:00 Test Item Value Reference Range Interpretation Comments UA Glucose (test code Negative (05/12/22 12:20 = UA Glucose) AM) [facility] AND [id number] 05:20:00 Test Item Value Reference Range Interpretation Comments UA Ketones (test code = UA >=80 mg/dL Ketones) [facility] [id number] 05:20:00 Test Item Value Reference Range Interpretation Comments UA Bili (test code = Negative *NA*(05/12/22 UA Bili) 12:20 AM) [facility] [id number] 05:20:00 Test Item Value Reference Range Interpretation Comments UA Blood (test code = Negative (05/12/22 12:20 UA Blood) AM) [facility] [id number] 05:20:00 Test Item Value Reference Range Interpretation Comments UA Urobilinogen (test code = UA 0.2 0.1-1.0 Urobilinogen) [facility] [id number] 05:20:00 Test Item Value Reference Range Interpretation Comments UA Nitrite (test code Negative (05/12/22 12:20 = UA Nitrite) AM) [facility] [id number] 05:20:00 Test Item Value Reference Range Interpretation Comments UA Leuk Est (test Negative (05/12/22 12:20 code = UA Leuk Est) AM) [facility] [id number] 05:20:00 Test Item Value Reference Range Interpretation Comments UA Sq Epi (test code Occasional *NA*(05/12/22 = UA Sq Epi) 12:20 AM) [facility] [id number] 05:20:00 Test Item Value Reference Range Interpretation Comments UA WBC (test code = 1 See_Comment [Automa ross message] The UA WBC) system which ge nerated this result transmit ross reference range : <=5. The reference range was not used to interpr et this result as corrine l/abnormal. [facility] [id number] 05:20:00 Test Item Value Reference Range Interpretation Comments UA RBC (test code = no gt See_Comment [Automa ross message] The UA RBC) system which ge nerated this result transmit ross reference range : <=2. The reference range was not used to interpr et this result as corrine l/abnormal. [facility] [id number] 05:20:00 Test Item Value Reference Range Interpretation Comments UA Mucus (test code = UA Mucus) Few /LPF [facility] [id number] 04:01:00 Test Item Value Reference Range Interpretation Comments ABO/Rh (test code = ABO/Rh) O POS [facility] [id number] 04:01:00 Test Item Value Reference Range Interpretation Comments Antibody Scrn (test Negative (05/11/22 code = Antibody Scrn) 11:01 PM) [facility]ur[facility]zBHUKUQYXPR4747-17-67 02:17:00 Test Item Value Reference Range Interpretation Comments Coronavirus (COVID-19) Not Detected (05/11/22 LUCY (test code = 9:17 PM) Coronavirus (COVID-19) LUCY) [facility] [id number] 21:55:00 Test Item Value Reference Range Interpretation Comments POCT PREG (test code = 1605) Negative On board controls acceptable with C Yes Line (test code = 3574) POCT PREG LOT # (test code = 3575) POCT PREG TEST DATE (test code = 3576) [facility] [id number] 21:55:00 Test Item Value Reference Range Interpretation Comments POCT PREG (test code = 1605) Negative On board controls acceptable with C Yes Line (test code = 3574) POCT PREG LOT # (test code = 3575) POCT PREG TEST DATE (test code = 3576) [facility]
[2022-12-02 19:14] LABS: Absolute Lymphocytes (CBC) 0.4 K/uL (0.7-4.9); Hematocrit 42.1 % (36.0-45.0); Lymphocytes % 3.8 % (15.3-44.8); MCV 84.6 fL (80-100); MPV 9.6 fL (7.6-11.3); RBC Red Blood Cell Count 4.97 M/uL (3.86-4.86)
[2022-12-02 19:30] LABS: Albumin 4.3 g/dL (3.4-5.0); Bilirubin Total 2.2 mg/dL (0.2-1.0); Potassium 3.6 mmol/L (3.5-5.1); Protein, Total 7.7 g/dL (6.4-8.2)
[2022-12-02] MEDS ORDERED: NA CHLORIDE 0.9% 1,000 ML ONE ×3 (20:04→23:53)
[2022-12-02 20:24] LABS: Blood Morphology Comment NOT SEEN (NOT SEEN); Platelet Estimate ADEQ; White Blood Cell Scan OK (OK)
--- NOTE | 2022-12-02 20:48 | RAD REPORT ---
EXAM DESCRIPTION: US - Abdomen Exam Limited - 12/02/2022 8:36 pm CLINICAL HISTORY: elevated bilirubin COMPARISON: None. TECHNIQUE: Sonographic grayscale and color flow images of the right upper quadrant were obtained. FINDINGS: The gallbladder demonstrates no gallstones. Small amount of layering echogenic material ne ar the neck, suggesting sludge. No pericholecystic fluid or gallbladder wall thickening. The common b ile duct is normal measuring 5 mm. The liver demonstrates no findings of intrahepatic biliary dilatation. IMPRESSION: No sonographic evidence of cholelithiasis or acute cholecystitis. No intra or extrahepat ic biliary ductal dilation.
[2022-12-02 22:00] LABS: Urine Blood 3+ (Negative); Urine Glucose Negative (Negative); Urine Protein 1+ (Negative); Urine Specific Gravity >=1.030 (1.005-1.030); Urine pH 5.5 (5.0-7.0)
[2022-12-02] MEDS ORDERED: DICYCLOMINE HCL 20 MG/2 ML AMP IM ONE (22:13)
[2022-12-02 22:14] LABS: Urine Specific Gravity/Preg >1.030 (1.005-1.030)
--- NOTE | 2022-12-02 23:02 | RAD REPORT ---
EXAM DESCRIPTION: CT - Abdomen Pelvis W Contrast - 12/02/2022 10:16 pm CLINICAL HISTORY: ABD PAIN, nausea vomiting and diarrhea COMPARISON: Abdominal ultrasound of same day TECHNIQUE: Thin cut axial CT imaging of the abdomen and pelvis was performed following intravenous a dministration of 95 Isovue 300. Multiplanar reformats were generated and reviewed. All CT scans are performed using dose optimization technique as appropriate and may include automated exposure control or mA/KV adjustment according to patient size. FINDINGS: No suspicious findings in the lung bases. The liver, spleen, and pancreas show no suspicious findings. Gallbladder and biliary tree are also wi thout suspicious finding. Symmetric renal function is seen with no hydronephrosis or suspicious renal mass. No dilated bowel loops or bowel wall thickening. No free air, free fluid or inflammatory stranding. N o hernia, mass or bulky lymphadenopathy. An IUD is in place within the uterus. The urinary bladder is without significant finding. No suspicious bony findings. IMPRESSION: No acute intra-abdominal process.
--- NOTE | 2022-12-02 23:39 | ER ---
Nurse's Notes [facility] Name: Ramírez Escalona Age: 22 yrs Sex: Female : 2000 Arrival Date: 12/02/2022 Time: 18:10 Bed 15 Private MD: Diagnosis: Nausea with vomiting, unspecified;Diarrhea, unspecified Presentation: 12/02 18:20 Chief complaint: Patient states: N/V/D that began 2-3 days ago. Coronavirus screen: ss Client denies travel out of the [place] in the last 14 days. Ebola Screen: Patient denies exposure to infectious person. Patient denies travel to an Ebola-affected area in the 21 days before illness onset. Initial Sepsis Screen: Does the patient meet any 2 criteria? No. Patient's initial sepsis screen is negative. Does the patient have a suspected source of infection? No. Patient's initial sepsis screen is negative. Risk Assessment: Do you want to hurt yourself or someone else? Patient reports no desire to harm self or others. Onset of symptoms was November 01, 2022. 18:20 Method Of Arrival: Ambulatory 18:20 Acuity: GIOVANNY 3 ss Historical: - Allergies: 18:21 SHELLFISH; ss - Home Meds: 18:21 paroxetine oral [Active]; ss - PMHx: 18:21 Anxiety; Depression; - PSHx: 18:21 facial reconstruction; 18:23 section; ss - Immunization history:: Client reports having NOT received the Covid vaccine. - Social history:: Smoking status: Reported history of juuling and/or vaping. Screenin:03 [facility] ED Fall Risk Assessment (Adult) History of falling in the last 3 months, db including since admission No falls in past 3 months (0 pts) Confusion or Disorientation No (0 pts) Intoxicated or Sedated No (0 pts) Impaired Gait No (0 pts) Mobility Assist Device Used No (0 pt) Altered Elimination No (0 pt) Score/Fall Risk Level 0 - 2 = Low Risk Oriented to surroundings, Maintained a safe environment. Abuse screen: Denies threats or abuse. Denies injuries from another. Nutritional screening: No deficits noted. Tuberculosis screening: No symptoms or risk factors identified. Assessment: 18:55 Reassessment: Patient appears in no apparent distress at this time. Patient and/or db family updated on plan of care and expected duration. Pain level reassessed. Patient is alert, oriented x 3, equal unlabored respirations, skin warm/dry/pink. General: Appears in no apparent distress. comfortable, Behavior is calm, cooperative. Pain: Complains of pain in abdomen and left lower quadrant and right lower quadrant. Neuro: Level of Consciousness is awake, alert, obeys commands, Oriented to person, place, time, situation, Speech is normal, Pupils are PERRLA. Respiratory: No deficits noted. GI: Abdomen is flat, Reports diarrhea, nausea, vomiting. 19:05 Reassessment: Patient appears in no apparent distress at this time. Patient and/or jb4 family updated on plan of care and expected duration. Pain level reassessed. Patient is alert, oriented x 3, equal unlabored respirations, skin warm/dry/pink. 20:16 Reassessment: Patient appears in no apparent distress at this time. Patient and/or jb4 family updated on plan of care and expected duration. Pain level reassessed. Patient is alert, oriented x 3, equal unlabored respirations, skin warm/dry/pink. 21:00 Reassessment: Patient appears in no apparent distress at this time. Patient and/or jb4 family updated on plan of care and expected duration. Pain level reassessed. Patient is alert, oriented x 3, equal unlabored respirations, skin warm/dry/pink. 22:00 Reassessment: Patient appears in no apparent distress at this time. Patient and/or jb4 family updated on plan of care and expected duration. Pain level reassessed. Patient is alert, oriented x 3, equal unlabored respirations, skin warm/dry/pink. 23:00 Reassessment: Patient appears in no apparent distress at this time. Patient and/or jb4 family updated on plan of care and expected duration. Pain level reassessed. Patient is alert, oriented x 3, equal unlabored respirations, skin warm/dry/pink. 23:50 Reassessment: Patient appears in no apparent distress at this time. Patient and/or jb4 family updated on plan of care and expected duration. Pain level reassessed. Patient is alert, oriented x 3, equal unlabored respirations, skin warm/dry/pink. D/c pending completion of IV fluids. Pt remains tachycardic at 112-120, has not urinated after receiving multiple bolus's of NS. Provider notified, received verbal order to hang a 3rd Liter of NS. 12/03 01:17 Reassessment: Patient appears in no apparent distress at this time. Patient and/or jb4 family updated on plan of care and expected duration. Pain level reassessed. Patient is alert, oriented x 3, equal unlabored respirations, skin warm/dry/pink. Pt is now urinating, provider okayed pt to be discharged. Vital Signs: 12/02 18:20 BP 120 / 66; Pulse 104; Resp 15; Temp 98.6(TE); Pulse Ox 100% on R/A; Weight 72.57 kg; ss Height 5 ft. 3 in. (160.02 cm); Pain 6/10; 20:00 BP 98 / 62; Pulse 102; Resp 20; Pulse Ox 96% on R/A; jb4 22:30 BP 106 / 77; Pulse 112; Resp 16; Pulse Ox 98% on R/A; jb4 12/03 00:00 BP 91 / 56; Pulse 112; Resp 18; Temp 99.2(O); Pulse Ox 98% on R/A; jb4 01:00 BP 95 / 66; Pulse 110; Resp 17; Pulse Ox 97% on R/A; jb4 12/02 18:20 Body Mass Index 28.34 (72.57 kg, 160.02 cm) ED Course: 12/02 18:10 Patient arrived in ED. es 18:20 Hien Garza FNP-C is PHCP. snw 18:20 Ish Craig MD is Attending Physician. snw 18:21 Triage completed. ss 18:21 Arm band placed on right wrist. ss 18:46 Mariola Saini, RN is Primary Nurse. db 18:58 Inserted saline lock: 20 gauge in left antecubital area, using aseptic technique. Blood db collected. 19:34 Primary Nurse role handed off by Mariola Saini RN wm 19:49 PHCP role handed off by Hien Garza FNP-C cp 19:49 Speedy Cruz PA is PHCP. cp 20:16 Cali Peters, DAJUAN is Primary Nurse. 4 12/03 00:00 Patient has correct armband on for positive identification. Bed in low position. Call jb4 light in reach. Side rails up X 1. 01:19 No provider procedures requiring assistance completed. IV discontinued, intact, jb4 bleeding controlled, No redness/swelling at site. Pressure dressing applied. Administered Medications: 12/02 20:02 Drug: NS 0.9% 1000 ml Route: IV; Rate: 1 bolus; Site: left antecubital; jb4 21:30 Follow up: Response: No adverse reaction; IV Status: Completed infusion; IV Intake: jb4 1000ml 22:31 Drug: Dicyclomine 20 mg Route: IM; Site: right gluteus; jb4 22:31 Drug: NS 0.9% 1000 ml Route: IV; Rate: 1 bolus; Site: left antecubital; jb4 23:51 Drug: NS 0.9% 1000 ml Route: IV; Rate: 1 bolus; Site: left antecubital; jb4 23:54 Not Given (Duplicate Order): NS 0.9% 1000 ml IV at 1 bolus Per protocol; 1000 mL bolus jb4 Medication: 12/03 00:00 VIS not applicable for this client. jb4 Intake: 12/02 21:30 IV: 1000ml; Total: 1000ml. jb4 Outcome: 23:38 Discharge ordered by MD. moser 03 01:20 Discharged to home ambulatory, with family. jb4 Condition: stable Discharge instructions given to patient, Instructed on discharge instructions, follow up and referral plans. medication usage, Demonstrated understanding of instructions, follow-up care, medications, Prescriptions given X 2. 01:20 Patient left the ED. jb4 Signatures: Hien Garza, DRAMATIC ARTS HISTORIAN-C DRAMATIC ARTS HISTORIAN-CsnVidhi Cao Shelby, RN RN ss Page, Corey, PA PA cp Bryson, James, RN RN jb4 Beatriz Marcum Danielle RN RN db Corrections: (The following items were deleted from the chart) 01:19 01:17 Reassessment: Patient appears in no apparent distress at this time. Patient jb4 and/or family updated on plan of care and expected duration. Pain level reassessed. Patient is alert, oriented x 3, equal unlabored respirations, skin warm/dry/pink. jb4
--- NOTE | 2022-12-02 23:39 | EDPHYS ---
Physician Documentation [facility] Name: Ramírez Escalona Age: 22 yrs Sex: Female : 2000 Arrival Date: 12/02/2022 Time: 18:10 Bed 15 Private MD: ED Physician Ish Craig HPI: 12/02 18:28 This 22 yrs old Female presents to ER via Ambulatory with complaints of Fever, snw Vomiting/Diarrhea. 18:28 The patient reports fever, not measured (subjective). Onset: The symptoms/episode snw began/occurred 4 day(s) ago, and became persistent. Associated signs and symptoms: Pertinent positives: diarrhea, vomiting. Severity of symptoms: At their worst the symptoms were moderate. It is unknown whether or not the patient has had similar symptoms in the past. It is unknown whether or not the patient has recently seen a physician. Historical: - Allergies: 18:21 SHELLFISH; ss - Home Meds: 18:21 paroxetine oral [Active]; ss - PMHx: 18:21 Anxiety; Depression; ss - PSHx: 18:21 facial reconstruction; ss 18:23 section; ss - Immunization history:: Client reports having NOT received the Covid vaccine. - Social history:: Smoking status: Reported history of juuling and/or vaping. ROS: 18:27 Eyes: Negative for injury, pain, redness, and discharge, ENT: Negative for injury, snw pain, and discharge, Neck: Negative for injury, pain, and swelling, Cardiovascular: Negative for chest pain, palpitations, and edema, Respiratory: Negative for shortness of breath, cough, wheezing, and pleuritic chest pain. 18:27 Back: Negative for injury and pain, : Negative for injury, bleeding, discharge, and swelling, MS/Extremity: Negative for injury and deformity, Skin: Negative for injury, rash, and discoloration, Neuro: Negative for headache, weakness, numbness, tingling, and seizure, Psych: Negative for depression, anxiety, suicide ideation, homicidal ideation, and hallucinations. 18:27 Constitutional: Positive for body aches, fever, malaise, poor PO intake. 18:27 Abdomen/GI: Positive for abdominal pain, nausea, vomiting, and diarrhea, of the right lower quadrant and left lower quadrant. Exam: 18:26 Constitutional: This is a well developed, well nourished patient who is awake, alert, snw and in no acute distress. Head/Face: Normocephalic, atraumatic. Eyes: Pupils equal round and reactive to light, extra-ocular motions intact. Lids and lashes normal. Conjunctiva and sclera are non-icteric and not injected. Cornea within normal limits. Periorbital areas with no swelling, redness, or edema. ENT: Nares patent. No nasal discharge, no septal abnormalities noted. Tympanic membranes are normal and external auditory canals are clear. Oropharynx with no redness, swelling, or masses, exudates, or evidence of obstruction, uvula midline. Mucous membranes moist. Neck: Trachea midline, no thyromegaly or masses palpated, and no cervical lymphadenopathy. Supple, full range of motion without nuchal rigidity, or vertebral point tenderness. No Meningismus. Chest/axilla: Normal chest wall appearance and motion. Nontender with no deformity. No lesions are appreciated. 18:26 Respiratory: Lungs have equal breath sounds bilaterally, clear to auscultation and percussion. No rales, rhonchi or wheezes noted. No increased work of breathing, no retractions or nasal flaring. Back: No spinal tenderness. No costovertebral tenderness. Full range of motion. 18:26 Neuro: Awake and alert, GCS 15, oriented to person, place, time, and situation. Cranial nerves II-XII grossly intact. Motor strength 5/5 in all extremities. Sensory grossly intact. Cerebellar exam normal. Normal gait. Psych: Awake, alert, with orientation to person, place and time. Behavior, mood, and affect are within normal limits. 18:26 Cardiovascular: Rate: tachycardic, Heart sounds: normal. 18:26 Abdomen/GI: Inspection: abdomen appears normal, Bowel sounds: normal, Palpation: mild abdominal tenderness, in the right lower quadrant and left lower quadrant. 18:26 Skin: Appearance: Color: pale. Vital Signs: 18:20 BP 120 / 66; Pulse 104; Resp 15; Temp 98.6(TE); Pulse Ox 100% on R/A; Weight 72.57 kg; ss Height 5 ft. 3 in. (160.02 cm); Pain 6/10; 20:00 BP 98 / 62; Pulse 102; Resp 20; Pulse Ox 96% on R/A; jb4 22:30 BP 106 / 77; Pulse 112; Resp 16; Pulse Ox 98% on R/A; jb4 03 00:00 BP 91 / 56; Pulse 112; Resp 18; Temp 99.2(O); Pulse Ox 98% on R/A; jb4 01:00 BP 95 / 66; Pulse 110; Resp 17; Pulse Ox 97% on R/A; jb4 12/02 18:20 Body Mass Index 28.34 (72.57 kg, 160.02 cm) ss MDM: 12/02 18:26 Patient medically screened. snw 19:48 Differential diagnosis: bacterial infection, UTI, gastroenteritis. Data reviewed: vital snw signs, nurses notes, EKG. Transition of care: After a detail discussion of the patient's case, care is transferred to Speedy ALMARAZ. 23:37 I considered the following discharge prescriptions or medication management in the emergency department Medications were administered in the Emergency Department. See MAR. 23:37 Counseling: I had a detailed discussion with the patient and/or guardian regarding: the historical points, exam findings, and any diagnostic results supporting the discharge/admit diagnosis, lab results, radiology results. Response to treatment: the patient's symptoms have markedly improved after treatment, and as a result, I will discharge patient. Special discussion: Based on the patient's Hx, exam, and Dx evaluation, there is no indication for emergent surgery or inpatient Tx. It is understood by the patient/guardian that if the Sx's persist or worsen they need to return immediately for re-evaluation. 12/02 18:22 Order name: Blood Culture Adult (2) [facility] 12/02 18:22 Order name: CBC with Diff critical [facility] 12/02 18:22 Order name: CMP critical [facility] 12/02 18:22 Order name: Lactate w/ 2H reflex if indic. critical [facility] 12/02 18:22 Order name: Urine Culture [facility] 12/02 18:22 Order name: Urine Microscopic Only [facility] 12/02 18:22 Order name: Cardiac monitoring; Complete Time: 19:04 critical [facility] hospital 12/02 18:22 Order name: EKG - Nurse/Tech; Complete Time: 20:15 critical access hospital 12/02 18:22 Order name: IV Saline Lock - Large Bore; Complete Time: 19:04 snw 12/02 18:22 Order name: Labs collected and sent; Complete Time: 19:04 snw 12/02 18:22 Order name: O2 Per Protocol; Complete Time: 19:04 snw 12/02 18:22 Order name: O2 Sat Monitoring; Complete Time: 19:04 snw 12/02 18:22 Order name: Urine Dipstick-Ancillary (obtain specimen); Complete Time: 22:00 snw 12/02 18:22 Order name: Urine Test (obtain specimen); Complete Time: 22:00 snw 12/02 18:22 Order name: Vital Signs; Complete Time: 19:22 snw 12/02 18:27 Order name: UDS sn 12/02 19:15 Order name: CBC with Automated Diff; Complete Time: 21:27 EDMS 12/02 21:27 Interpretation: Normal except: WBC 11.10; RBC 4.97; CHERYL% 90.4; LYM% 3.8; NEUT A 10.0; cp LYMA 0.4. 12/02 19:30 Order name: Comprehensive Metabolic Panel; Complete Time: 19:33 EDMS 12/02 22:38 Interpretation: BILIT 2.2; Report reviewed. cp 12/02 19:33 Order name: US Abdomen Limited snw 12/02 20:24 Order name: CBC Smear Scan; Complete Time: 21:27 EDMS 12/02 20:31 Order name: Lactate w/ 2H reflex if indic.; Complete Time: 21:27 EDMS 12/02 20:48 Order name: US; Complete Time: 21:27 EDMS 12/02 21:27 Interpretation: Report reviewed. cp 12/02 21:32 Order name: CT Abd/Pelvis - IV Contrast Only cp 12/02 22:00 Order name: Urine Dipstick-Ancillary; Complete Time: 22:37 EDMS 12/02 22:01 Order name: Urine --Ancillary (enter results) wm 12/02 22:15 Order name: Urine --Ancillary; Complete Time: 22:37 EDMS 12/02 23:03 Order name: CT; Complete Time: 23:34 EDMS 12/02 23:35 Interpretation: Report reviewed. cp 12/02 23:35 Order name: PO challenge; Complete Time: 23:40 cp EC:32 Rate is 96 beats/min. Rhythm is regular. QRS [place] is Normal. AR interval is normal. QRS snw interval is normal. Clinical impression: Normal ECG. Administered Medications: 20:02 Drug: NS 0.9% 1000 ml Route: IV; Rate: 1 bolus; Site: left antecubital; jb4 21:30 Follow up: Response: No adverse reaction; IV Status: Completed infusion; IV Intake: jb4 1000ml 22:31 Drug: Dicyclomine 20 mg Route: IM; Site: right gluteus; jb4 22:31 Drug: NS 0.9% 1000 ml Route: IV; Rate: 1 bolus; Site: left antecubital; jb4 23:51 Drug: NS 0.9% 1000 ml Route: IV; Rate: 1 bolus; Site: left antecubital; jb4 23:54 Not Given (Duplicate Order): NS 0.9% 1000 ml IV at 1 bolus Per protocol; 1000 mL bolus jb4 Disposition Summary: 12/02/22 23:38 Discharge Ordered Location: Home cp Problem: new cp Symptoms: have improved cp Condition: Stable cp Diagnosis - Nausea with vomiting, unspecified cp - Diarrhea, unspecified cp Followup: cp - With: Private Physician - When: 2 - 3 days - Reason: Recheck today's complaints Discharge Instructions: - Discharge Summary Sheet cp - Food Choices to Help Relieve Diarrhea, Adult cp - Diarrhea, Adult cp - Nausea and Vomiting, Adult cp Forms: - Medication Reconciliation Form cp - Thank You Letter cp - Antibiotic Education cp - Prescription Opioid Use cp Prescriptions: - Zofran 4 mg Oral Tablet - take 1 tablet by ORAL route every 12 hours As needed; 20 tablet; Refills: 0, cp Product Selection Permitted - dicyclomine 20 mg Oral Tablet - take 1 tablet by ORAL route 4 times per day; 30 tablet; Refills: 0, Product cp Selection Permitted Signatures: Dispatcher [employer] Hien Bowers, KISHORE BABY FORMULA WORKER-Darya Rico RN RN Speedy Chapman PA PA cp Bryson, James, DAJUAN RN jb4
[2022-12-03 01:29] VITALS: TEMP 99.2
[2022-12-03 01:30] VITALS: BP 95/66; O2SAT 97
--- NOTE | 2022-12-04 16:43 | EKG ---
Test Date: 2022-12-02 Test Time: 19:30:33 Racking Machine Operator: CHELSEA MEASUREMENT RESULTS: Intervals: Rate: 96 OR: 152 QRSD: 76 QT: 340 QTc: 429 Gregory: P: 63 OR: 152 QRS: 88 T: 58 INTERPRETIVE STATEMENTS: Normal sinus rhythm Normal ECG Compared to ECG 10/14/2021 03:35:23 Sinus tachycardia no longer present Electronically Signed On 12-04-22 16:38:25 TRANSIT PLANNER by Tom Barnard
== END 2022-12-03 01:20 | disposition home or self-care (01) ==
LOC: ER 18:07
DX: R11.2 Nausea with vomiting, unspecified (principal); R19.7 Diarrhea, unspecified; Z91.013 Allergy to seafood
CPT/HCPCS: 93005; 87040 ×2; 85025; 36415; 81025; 83605; 81003; 80053; 74177; 76705; 96360; 96372; 99284; Q9967; J0500; J7030 ×3

== ENCOUNTER 2023-02-17 23:22 | Emergency (ER) | payer BC ==
--- OUTSIDE RECORDS SUMMARY | 2023-02-17 23:30 | XMS REPORT | Continuity of Care Document ---
:2000 Author Organization [facility] t Address [address] [place] [address] Care Team Providers Name Role Phone Unknown, Physician Primary Care Physician Unavailable ASHLEY COONEY Attending Clinician Unavailable Ashley Cooney Attending Clinician Nadege Aviles Attending Clinician NADEGE AVILES Attending Clinician Unavailable SERENE MOTLEY Attending Clinician Unavailable Serene Motley Attending Clinician Danny Gonzalez Attending Clinician DANNY GONZALEZ Attending [...] Sherri Oconnor MD Attending Clinician Doctor Unassigned, [place] Attending Clinician Unavailable Jeremías Llanos Attending Clinician VIDAL PEREZROSA Huber Attending Clinician Unavailable CRISTAL DUNCAN Attending Clinician Unavailable [facility] Attending Clinician Po[facility] Attending Clinician Unavailable Cristal Berger Attending Clinician Manuel George MD Attending Clinician MANUEL GEORGE Attending Clinician Unavailable ASHLEY COONEY Admitting Clinician Unavailable Ashley Cooney Admitting Clinician SERENE MOTLEY Admitting Clinician Unavailable Serene Motley Admitting Clinician MANUEL GEORGE Admitting Clinician Unavailable Payers Payer Name Policy Type Policy Number Effective Date Expiration Date S mikhail [facility] [id number] 2019 [facility] 00:00:00 [facility] [id number] 2019 00:00:00 [facility] [id number] 2014 00:00:00 Problems Condition Condition Condition Status Onset Resolution Last Treating Co mments Source Name Details Category Date Date Treatment Clinician Date , , Diagnosis Active 2022-06-14 Mem oria 06/16/22, 06/16/22, 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: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 00:00: Demario n IOL IOL 00 (UNVACCINA (UNVACCINA T T Active 05/31/2022 [facility] OB PROBLEM OB Diagnosis Active 2022-05-25 Memoria PROBLEM 05-25 22:30:00 l Active 00:00: Todd 05/25/2022 [facility] PYELONEPHR PYELONEPH Diagnosis Active 2022-05-13 Memoria ITIS RITIS 05-11 12:33:00 l Active 00:00: Todd 05/11/2022 [facility] CONTRACTIO Diagnosis Active 2022-05-12 Memoria NS CONTRACTIO 05-11 09:22:00 l NS Active 00:00: Todd 05/11/2022 [facility] PAIN PAIN Diagnosis Active 2022-03-23 Mem oria Active 03-23 21:28:00 l 03/23/2022 00:00: Demario clifford [address] 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 6 WKS 6 WKS Diagnosis Active 2021-10-14 Mem oria PREGO/VOMI PREGO/VOMI - 19:28:00 l TING/ABD TING/ABD 00:00: Demario clifford PAIN PAIN 00 Active 10/12/2021 [facility] Patient Patient Problem Active 2020-102022-06-19 Me goff currently currently 2-10 22:56:53 l 00:00: Demario clifford (finding) (finding) 00 Active 09/09/2021 Problem 06/19/2022 [facility] FALL FALL Diagnosis Active 2020-102021-08-15 Mem oria Active 10-14 13:14:00 l 08/14/2021 00:00: Demario clifford 00 [place] No known No known Disease Unive rs active active ity of problems problems [facility] Depressive Problem Active 2022-06-19 M emoria disorder Depressive 22:56:53 l (disorder) disorder Herm nakul (disorder) Active Problem 06/19/2022 [facility] Chlamydial Problem Resolve 2022-06-19 2022-06-19 Memoria infection Chlamydial d 10-01 22:56:53 22:56:53 l (disorder) infection 00:00: Her hogan (disorder) 00 Resolved 10/01/2021 Problem 06/19/2022 [facility] History of Past Illness Condition Condition Condition Status Onset Resolution Last Treating Co mments Source Name Details Category Date Date Treatment Clinician Date Problem 2022-05-28 2022-05-28 [facility]oria [facility], 05-26 00:11:21 00:11:21 l incidental incidental 04:06: He delia 05/26/2022 00 05/28/2022 [facility] Frequency Frequency Problem 20222022-05-28 2022-05-28 Memoria of of 05-26 00:11:21 00:11:21 l micturitio micturitio 04:06: He delia n n 00 05/26/2022 05/28/2022 [facility] Allergies, Adverse Reactions, Alerts Allergy Allergy Status Severity Reaction(s) Onset Inactive Treating Comm ents Source Name Type Date Date Clinician Shellfis Allergy Active Swelling [place] h-Derive to 12-09 [facility] 00:00: Products e 00 shellfis shellfis Active Memori a h h l Antione No Known No Known Active Memori a Medicati Medicati l on on Todd Allergie Allergie s s NO KNOWN Drug Active Univers ALLERGIE Class ity of S [facility] Social History Social Habit Start Date Stop Date Quantity Comments Source ASSERTION 2021-09-23 [facility] 00:00:00 History SDOH University o f Alcohol Frequency [facility] History SDOR [facility] o [facility] Alcohol Std [facility] History [facility] University o f Alcohol Binge [place] [facility] Exposure to Not sure [facility] SARS-CoV-2 (event) Social History 2022-03-24 2022-03-24 [facility] 00:37:39 00:37:39 Tobacco use and 2021-12-09 2021-12-09 Former smokeless [facility] exposure 00:00:00 00:00:00 tobacco user Alcohol intake 2021-12-09 2021-12-09 Ex-drinker [facility] 00:00:00 00:00:00 (finding) Alcohol Comment 2021-09-06 2021-09-06 Socially [facility] 00:00:00 00:00:00 [facility] Sex Assigned At 2000 2002 [facility] 00:00:00 00:00:00 Smoking Status Start Date Stop Date Source Tobacco smoking consumption unknown [facility] Never smoked tobacco [facility] Social History 2021-08-14 10:11:52 [facility] hogan Medications Ordered Filled Start Stop Current Ordering Indication Dosage Frequency Signature Comments Components Source Medication Medication Date Date Medication? Clinician (SIG) Name Name ferrous Yes 325 mg = 1 Christiano sarthak sulfate 325 9-17 tab, PO, l mg oral 16:55: Daily, # Demario n enteric 00 30 tab, 2 coated Refill(s), tablet Pharmacy: [facility][id number], 160.02, cm, 06/09/22 8:47:00 CDT, Height, 77.727, kg, 06/09/22 8:47:00 CDT, Weight ferrous 2021-0 Yes 325 mg = 1 Christiano sarthak sulfate 325 9-17 tab, PO, l mg oral 16:55: Daily, # Demario n enteric 00 30 tab, 2 coated Refill(s), tablet Pharmacy: [facility] #[id number], 160.02, cm, 06/09/22 8:47:00 CDT, Height, 77.727, kg, 06/09/22 8:47:00 CDT, Weight ibuprofen 2021-0 Yes 600 mg = 1 Me moria 600 mg oral 9-17 tab, PO, l tablet 16:53: Q6H, X 14 Demario n 00 day, # 56 tab, 1 Refill(s), Pharmacy: [facility] #[id number], 160.02, cm, 06/09/22 8:47:00 CDT, Height, 77.727, kg, 06/09/22 8:47:00 CDT, Weight Colace 100 2021-0 Yes 100 mg = 1 M emoria mg oral 9-17 cap, PO, l capsule 16:53: Daily, PRN Herm nakul 00 Constipati on, # 60 cap, 2 Refill(s), Pharmacy: [facility] #[id number], 160.02, cm, 06/09/22 8:47:00 CDT, Height, 77.727, kg, 06/09/22 8:47:00 CDT, Weight Tylenol 2021-0 Yes 1 - 2 tab, Christiano sarthak with 9-17 PO, Q6H, l Codeine #3 16:53: PRN Pain, He rmann oral tablet 00 X 5 day, # 20 tab, 0 Refill(s), Pharmacy: [facility] #[id number], 160.02, cm, 06/09/22 8:47:00 CDT, Height, 77.727, kg, 06/09/22 8:47:00 CDT, Weight ibuprofen 2022-0 Yes 600 mg = 1 Me moria 600 mg oral 9-17 tab, PO, l tablet 16:53: Q6H, X 14 Demario n 00 day, # 56 tab, 1 Refill(s), [id number], 160.02, cm, 06/09/22 8:47:00 CDT, Height, 77.727, kg, 06/09/22 8:47:00 CDT, Weight Colace 100 Yes 100 mg = 1 M emoria mg oral 9-17 cap, PO, l capsule 16:53: Daily, PRN Herm nakul 00 Constipati on, # 60 cap, 2 Refill(s), [id number], 160.02, cm, 06/09/22 8:47:00 CDT, Height, 77.727, kg, 06/09/22 8:47:00 CDT, Weight Tylenol Yes 1 - 2 tab, Christiano sarthak with 9-17 PO, Q6H, l Codeine #3 16:53: PRN Pain, He rmann oral tablet 00 X 5 day, # 20 tab, 0 Refill(s), [id number], 160.02, cm, 06/09/22 8:47:00 CDT, Height, 77.727, kg, 06/09/22 8:47:00 CDT, Weight Colace 100 No Notes: Memor ia mg oral 9-17 (Same as: l capsule 14:21: Colace) (Do Not Crush) Colace 100 No Notes: Memor ia mg oral 9-17 (Same as: l capsule 14:21: Colace) (Do Not Crush) ibuprofen No Notes: Memori a 9-15 (Same as: l 17:00: Motrin) "Do Not Crush" Take with food. acetaminoph No Notes: Do M emoria en 9-15 not exceed l 17:00: 4 gm/day. Todd (Same as: Tylenol) ibuprofen No Notes: Memori a 9-15 (Same as: l 17:00: Motrin) "Do Not Crush" Take with food. acetaminoph No Notes: Do M emoria en 06-15 not exceed l 17:00: 4 gm/day. Antione (Same as: Tylenol) No 1 tab, Memoria Multivitami -15 Route: PO, l ns oral 14:00: Drug Form: Herm nakul tablet 00 TAB, Dosing Weight 77.727, kg, Daily, Start date: 06/15/22 9:00:00 CDT, Duration: 30 day, Stop date: 07/14/22 9:00:00 CDT, 0 Lactated No 1,000 mL, Christiano sarthak Ringers -15 1,000 l (Bolus) IV 14:00: ml/hr, Jeanna [...] Hemabate) tranexamic No Notes: Memor ia acid 9-15 (Same As: l 14:00: Cyklokapro n) Saline No Notes: Memoria Flush 0.9% 15 Same as: l 14:00: BD Posiflush Sterile naloxone No Notes: Memoria 9-15 Same as l 14:00: Narcan Antione 00 No 1 tab, Memoria Multivitami 15 Route: PO, l ns oral 14:00: Drug Form: Herm nakul tablet 00 TAB, Dosing Weight 77.727, kg, Daily, Start date: 06/15/22 9:00:00 CDT, Duration: 30 day, Stop date: 07/14/22 9:00:00 CDT, 0 Lactated No 1,000 mL, Christiano sarthak Ringers -15 1,000 l (Bolus) IV 14:00: ml/hr, Jeanna nn Infuse Over: 1 hr, Route: IV, 1,000, Drug form: INJ, ONCALL, Dosing Weight 77.727 kg, Start date: 06/15/22 9:00:00 CDT, Duration: 1 doses or times, For OB hemorrhage per physician direction, 0 oxytocin No Notes: Memoria -15 (Same as: l 14:00: Pitocin) Todd 00 Hazardous Drug Group 3:Reproduc tive risk Hazardous Drug -- Refer to safe handling procedure PPE Matrix misoprostol No Notes: Christiano sarthak -15 (Same l 14:00: as:Cytotec Todd ) Hazardous Drug Group 3:Reproduc tive risk Hazardous Drug -- Refer to safe handling procedure PPE Matrix Take with food methylergon No Notes: Christiano sarthak ovine -15 (Same l 14:00: as:Metherg Antione 00 ine) Hazardous Drug Group 3:Reproduc tive risk Hazardous Drug -- Refer to safe handling procedure PPE Matrix atropine-di No Notes: Christiano sarthak phenoxylate -15 (Same As: l 0.025 14:00: Lomotil) Antione mg-2.5 mg 00 MAX Adult oral tablet dose = 8 tabs/day carboprost No Notes: Memor ia 9-15 (Same As: l 14:00: Hemabate) tranexamic No Notes: Memor ia acid 9-15 (Same As: l 14:00: Cyklokapro n) Saline No Notes: Memoria Flush 0.9% 9-15 Same as: l 14:00: BD Posiflush Sterile naloxone No Notes: Memoria 9-15 Same as l 14:00: Narcan morphine No Route: Memoria Sulfate 9-15 INTRATHECA l (ANES) 13:57: L, Drug form: SOLN, ONCE, Stop date: 06/15/22 8:57:00 CDT morphine No Route: Memoria Sulfate 9-15 INTRATHECA l (ANES) 13:57: L, Drug form: SOLN, ONCE, Stop date: 06/15/22 8:57:00 CDT ondansetron No Route: IV, Memoria (ANES) -15 Drug form: l 13:55: INJ, ONCE, Stop date: 06/15/22 8:55:00 CDT ketOROLAC No IV, ONCE Christiano sarthak (ANES) -15 l 13:55: promethazin No Route: IV, Memoria e (ANES) 15 Drug form: l 13:55: INJ, ONCE, Stop [...] topical 15 (Same l cream 13:55: as:Lanolin Demario n ) benzocaine- No Notes: Christiano sarthak menthol 06-15 Cepacol l topical 13:55: lozenges Demario n 00 Dispense 1 box = 16 lozenges (Same As: Cepacol Lozenges) simethicone No Notes: Christiano sarthak -15 (Same as: l 13:55: Mylicon) Todd 00 oxytocin 30 No Notes: Christiano sarthak units in NS 06-15 Hazardous l 500 mL 13:55: Drug Group Jeanna nn (Titrate) 00 3:Reproduc IV 30 unit tive risk Hazardous Drug -- Refer to safe handling procedure PPE Matrix Saline No Notes: Memoria Flush 0.9% 06-15 Same as: l 13:55: BD Posiflush Sterile oxyCODONE No Notes: Memori a immediate 06-15 (Same as: l release 13:55: Roxicodone ) ondansetron No Notes: Christiano sarthak 15 (Same as: l 13:55: Zofran) MEDICATION WASTE Product Size: 4 mg Product Wasted: ___ mg promethazin No Notes: Do M emoria e 06-15 not give l 13:55: IV push. (Same as: Phenergan) metoclopram No Notes: Christiano sarthak krzysztof 06-15 (Same as: l 13:55: Reglan) nalbuphine No Notes: Memor ia 15 (Same As: l 13:55: Nubain) naloxone No Notes: Memoria 06-15 Same as l 13:55: Narcan ondansetron No Route: IV, Memoria (ANES) 06-15 Drug form: l 13:55: INJ, ONCE, Stop date: 06/15/22 8:55:00 CDT ketOROLAC No IV, ONCE Christiano sarthak (ANES) 06-15 l 13:55: Antione 00 promethazin No Route: IV, Memoria e (ANES) [...] Duration:. .. bisacodyl No Notes: Memori a 06-15 (Same As: l 13:55: Dulcolax, Bisco-Lax) lanolin No Notes: Memoria topical 06-15 (Same l cream 13:55: as:Lanolin ) benzocaine- No Notes: Christiano sarthak menthol 06-15 Cepacol l topical 13:55: lozenges Dispense 1 box = 16 lozenges (Same As: Cepacol Lozenges) simethicone No Notes: Christiano sarthak 06-15 (Same as: l 13:55: Mylicon) oxytocin 30 No Notes: Christiano sarthak units in NS 06-15 Hazardous l 500 mL 13:55: Drug Group Jeanna nn (Titrate) 00 3:Reproduc IV 30 unit tive risk Hazardous Drug -- Refer to safe handling procedure PPE Matrix Saline No Notes: Memoria Flush 0.9% 06-15 Same as: l 13:55: BD Posiflush Sterile oxyCODONE No Notes: Memori a immediate 06-15 (Same as: l release 13:55: Roxicodone ) ondansetron No Notes: Christiano sarthak 15 (Same as: l 13:55: Zofran) MEDICATION WASTE Product Size: 4 mg Product Wasted: ___ mg promethazin No Notes: Do M emoria e 15 not give l 13:55: IV push. (Same as: Phenergan) metoclopram No Notes: Christiano sarthak krzysztof 06-15 (Same as: l 13:55: Reglan) nalbuphine No Notes: Memor ia 06-15 (Same As: l 13:55: Nubain) naloxone No Notes: Memoria 15 Same as l 13:55: Narcan methylergon No Route: IM, Memoria ovine 15 Drug form: l (ANES) 13:50: INJ, ONCE, Jeanna nn Stop date: 06/15/22 8:50:00 CDT methylergon No Route: IM, Memoria ovine 15 Drug form: l (ANES) 13:50: INJ, ONCE, Jeanna nn Stop date: 06/15/22 8:50:00 CDT fentaNYL No Route: Memoria (ANES) 9-15 EPIDURAL, l 13:40: Drug form: Todd 00 INJ, ONCE, Stop date: 06/15/22 8:40:00 CDT fentaNYL No Route: Memoria (ANES) 9-15 EPIDURAL, l 13:40: Drug form: Todd 00 INJ, ONCE, Stop date: 06/15/22 8:40:00 CDT sodium No Route: Memoria bicarbonate 9-15 EPIDURAL, l (ANES) 13:35: Drug form: Jeanna nn 00 INJ, ONCE, Stop date: 06/15/22 8:35:00 CDT sodium No Route: Memoria bicarbonate 9-15 EPIDURAL, l (ANES) 13:35: Drug form: Jeanna nn 00 INJ, ONCE, Stop date: 06/15/22 8:35:00 CDT famotidine No Route: IV, M emoria (ANES) 9-15 Drug form: l 13:30: INJ, ONCE, Antione Stop date: 06/15/22 8:30:00 CDT ondansetron 2022-0 No Route: IV, Memoria (ANES) 9-15 Drug form: l 13:30: INJ, ONCE, Stop date: 06/15/22 8:30:00 CDT EPINEPHrine 2021-0 No Route: IV, Memoria -lidocaine 9-15 Drug Form: l (ANES) 13:30: INJ, ONCE, Jeanna Stop date: 06/15/22 8:30:00 CDT famotidine 2021-0 No Route: IV, M emoria (ANES) 9-15 Drug form: l 13:30: INJ, ONCE, Stop date: 06/15/22 8:30:00 CDT ondansetron 2021-0 No Route: IV, Memoria (ANES) 9-15 Drug form: l 13:30: INJ, ONCE, Stop date: 06/15/22 8:30:00 CDT EPINEPHrine 2021-0 No Route: IV, Memoria -lidocaine 9-15 Drug Form: l (ANES) 13:30: INJ, ONCE, Jeanna Stop date: 06/15/22 8:30:00 CDT ceFAZolin 2021-0 No Route: IV, Me moria (ANES) 9-15 Drug form: l 13:25: INJ, ONCE, Stop date: 06/15/22 8:25:00 CDT ceFAZolin 2021-0 No Route: IV, Me moria (ANES) 9-15 Drug form: l 13:25: INJ, ONCE, Stop date: 06/15/22 8:25:00 CDT oxytocin 2021-0 No Route: IV, Mem oria (ANES) 30 9-15 Drug form: l unit 13:07: SOLN, Antione Start date: 06/15/22 8:07:00 CDT, Stop date: 06/15/22 9:07:00 CDT oxytocin 2021-0 No Route: IV, Mem oria (ANES) 30 9-15 Drug form: l unit 13:07: SOLN, Antione 00 Start date: 06/15/22 8:07:00 CDT, Stop date: 06/15/22 9:07:00 CDT acetaminoph 2022-0 No Route: IV, Memoria en (ANES) 9-15 Drug form: l 10 mg 13:03: INJ, Start Demario n 00 date: 06/15/22 8:03:00 CDT, Stop date: 06/15/22 9:03:00 CDT acetaminoph No Route: IV, Memoria en (ANES) 9-15 Drug form: l 10 mg 13:03: INJ, Start Demario n 00 date: 06/15/22 8:03:00 CDT, Stop date: 06/15/22 9:03:00 CDT Lactated No Route: IV, Mem oria Ringers 9-15 Total l Injection 12:53: Volume: Jeanna nn IV (ANES) 00 1,000, 1000 mL Start date: 06/15/22 7:53:00 CDT, Stop date: 06/15/22 8:53:00 CDT Lactated No Route: IV, Mem oria Ringers 9-15 Total l Injection 12:53: Volume: Jeanna nn IV (ANES) 00 1,000, 1000 mL Start date: 06/15/22 7:53:00 CDT, Stop date: 06/15/22 8:53:00 CDT azithromyci No Route: IV, Memoria n (ANES) 9-15 Drug form: l 500 mg 12:40: INJ, Start Jeanna nn 00 date: 06/15/22 7:40:00 CDT, Stop date: 06/15/22 8:40:00 CDT azithromyci No Route: IV, Memoria n (ANES) 9-15 Drug form: l 500 mg 12:40: INJ, Start Jeanna nn 00 date: 06/15/22 7:40:00 CDT, Stop date: 06/15/22 8:40:00 CDT Pepcid No Notes: Memoria 9-15 (Same as: l 11:13: Pepcid) Todd Pepcid No Notes: Memoria 9-15 (Same as: l 11:13: Pepcid) Antione Ropivacaine No Notes: Christiano sarthak 0.1% + 9-14 (Same as l fentaNYL 2 11:08: Naropin-Nicole H ermann mcg/ml 00 blimaze) Epidural CADD 200 mL Ropivacaine No Notes: Christiano sarthak 0.1% + 9-14 (Same as l fentaNYL 2 11:08: Naropin-Nicole H ermann mcg/ml 00 blimaze) Epidural CADD 200 mL oxytocin 30 No Notes: Christiano sarthak units in NS 9-14 Hazardous l 500 mL 09:20: Drug Group Jeanna nn (Titrate) 00 3:Reproduc IV 30 unit tive risk Hazardous Drug -- Refer to safe handling procedure PPE Matrix oxytocin 30 No Notes: Christiano sarthak units in NS 9-14 Hazardous l 500 mL 09:20: Drug Group Jeanna nn (Titrate) 00 3:Reproduc IV 30 unit tive risk Hazardous Drug -- Refer to safe handling procedure PPE Matrix Remove - No Notes: Memoria dinoproston 9-14 Vaginal l e 09:00: insert: to Antione (Cervidil) 00 be removed insert 1 hour prior to oxytocin administra tion or 12 hours after insertion. Hazardous Drug Group 3:Reproduc tive risk Hazardous Drug -- Refer to safe handling procedure PPE Matrix Remove - No Notes: Memoria dinoproston 9-14 Vaginal l e 09:00: insert: to Antione (Cervidil) 00 be removed insert 1 hour prior to oxytocin administra tion or 12 hours after insertion. Hazardous Drug Group 3:Reproduc tive risk Hazardous Drug -- Refer to safe handling procedure PPE Matrix Cervidil No Notes: Memoria 9-13 (Same as: l 20:20: Cervidil) Antione 00 Hazardous Drug Group 3:Reproduc tive risk Hazardous Drug -- Refer to safe handling procedure PPE Matrix Cervidil No Notes: Memoria 9-13 (Same as: l 20:20: Cervidil) Todd 00 Hazardous Drug Group 3:Reproduc tive risk Hazardous Drug -- Refer to safe handling procedure PPE Matrix Remove - No Notes: Memoria dinoproston 9-13 Vaginal l e 19:00: insert: to Todd (Cervidil) 00 be removed insert 1 hour [...] not exceed l 07:00: 4 gm/day. Antione 00 (Same as: Tylenol) ibuprofen No Notes: Memori a 06-13 (Same as: l 07:00: Motrin) Antione "Do Not Crush" Take with food. Lactated [...] Memoria 06-13 (Same as: l 07:00: Pitocin) Todd Hazardous Drug Group 3:Reproduc tive risk Hazardous Drug -- Refer to safe handling procedure PPE Matrix misoprostol No Notes: Christiano sarthak 06-13 (Same l 07:00: as:Cytotec Todd 00 ) Hazardous Drug Group 3:Reproduc tive risk Hazardous Drug -- Refer to safe handling procedure PPE Matrix Take with food methylergon No Notes: Christiano sarthak ovine 06-13 (Same l 07:00: as:Metherg Antione 00 ine) Hazardous Drug Group 3:Reproduc tive risk Hazardous Drug -- Refer to safe handling procedure PPE Matrix atropine-di No Notes: Christiano sarthak phenoxylate 06-13 (Same As: l 0.025 07:00: Lomotil) Todd mg-2.5 mg 00 MAX Adult oral tablet dose = 8 tabs/day carboprost No Notes: Memor ia 9-13 (Same As: l 07:00: Hemabate) tranexamic No Notes: Memor ia acid -13 (Same As: l 07:00: Cyklokapro n) acetaminoph No Notes: Do M emoria en 06-13 not exceed l 07:00: 4 gm/day. Todd (Same as: Tylenol) ibuprofen No Notes: Memori a - (Same as: l 07:00: Motrin) "Do Not Crush" Take with food. Lactated No 1,000 mL, Christiano sarthak Ringers 06-13 1,000 l (Bolus) IV 07:00: ml/hr, Jeanna Infuse Over: 1 hr, Route: IV, 1,000, Drug form: INJ, ONCALL, Dosing Weight 77.727 kg, Start date: 06/13/22 2:00:00 CDT, Duration: 1 doses or times, For OB hemorrhage per physician direction, 0 oxytocin No Notes: Memoria -13 (Same as: l 07:00: Pitocin) Hazardous Drug Group 3:Reproduc tive risk Hazardous Drug -- Refer to safe handling procedure PPE Matrix misoprostol No Notes: Christiano sarthak -13 (Same l 07:00: as:Cytotec ) Hazardous Drug Group 3:Reproduc tive risk Hazardous Drug -- Refer to safe handling procedure PPE Matrix Take with food methylergon No Notes: Christiano sarthak ovine -13 (Same l 07:00: as:Metherg ine) Hazardous Drug Group 3:Reproduc tive risk Hazardous Drug -- Refer to safe handling procedure PPE Matrix atropine-di No Notes: Christiano sarthak phenoxylate -13 (Same As: l 0.025 07:00: Lomotil) mg-2.5 mg 00 MAX Adult oral tablet dose = 8 tabs/day carboprost No Notes: Memor ia 9-13 (Same As: l 07:00: Hemabate) tranexamic No Notes: Memor ia acid -13 (Same As: l 07:00: Cyklokapro n) Lactated No 1,000 mL, Christiano sarthak [...] No Notes: Christiano sarthak units in NS - Hazardous l 500 mL 06:42: Drug Group Jeanna nn (Bolus) IV 00 3:Reproduc 10.02 unit tive risk Hazardous Drug -- Refer to safe handling procedure PPE Matrix oxytocin 30 No Notes: Christiano sarthak units in NS - Hazardous l 500 mL IV 06:42: Drug Group He rmann 19.98 unit 00 3:Reproduc tive risk Hazardous Drug -- Refer to safe handling procedure PPE Matrix butorphanol No Notes: Christiano sarthak - (Same As: l 06:42: Stadol) MEDICATION WASTE Product Size: 2 mg Product Wasted: ___ mg oxyCODONE No Notes: Memori a immediate - (Same as: l release 06:42: Roxicodone ) ondansetron No Notes: Christiano sarthak -13 (Same as: l 06:42: Zofran) MEDICATION WASTE Product Size: 4 mg Product Wasted: ___ mg lidocaine No Notes: Memori a 1% 9-13 Preservati l injectable 06:42: ve free. Her hoagn solution (Same as: Xylocaine MPF) lidocaine No Notes: Memori a 1% 9-13 Preservati l 06:42: ve free. Antione (Same as: Xylocaine MPF) terbutaline No Notes: Christiano sarthak 9-13 DO NOT l 06:42: USE IN Antione 00 [employer] (Same As: Lizetthine) Dermoplast No Notes: Memor ia Pain 06-13 (Same As: l Relieving 06:42: Dermoplast He rmann 20%-0.5% 00 ) WASTE: topical Aerosol - spray Return [...] Refer to safe handling procedure PPE Matrix Lactated No 1,000 mL, Christiano sarthak Ringers [...] PPE Matrix butorphanol No Notes: Christiano sarthak 06-13 (Same As: l 06:42: Stadol) MEDICATION WASTE Product Size: 2 mg Product Wasted: ___ mg oxyCODONE No Notes: Memori a immediate 06-13 (Same as: l release 06:42: Roxicodone ) ondansetron No Notes: Christiano sarthak - (Same as: l 06:42: Zofran) MEDICATION WASTE Product Size: 4 mg Product Wasted: ___ mg lidocaine No Notes: Memori a 1% 9-13 Preservati l injectable 06:42: ve free. Her hogan solution (Same as: Xylocaine MPF) lidocaine No Notes: Memori a 1% 9-13 Preservati l 06:42: ve free. Antione (Same as: Xylocaine MPF) terbutaline No Notes: Christiano sarthak 06-13 DO NOT l 06:42: USE IN Todd 00 [employer] (Same As: Brethine) Dermoplast No Notes: Memor ia Pain 06-13 (Same As: l Relieving 06:42: Dermoplast He rmann 20%-0.5% 00 ) WASTE: topical Aerosol - spray Return [...] mg = 1 M emoria mg oral 8-13 cap, PO, l capsule 16:05: QID, X 10 Jeanna nn day, # 40 cap, 0 Refill(s), Pharmacy: [facility] #[id number], 160.02, cm, 05/11/22 21:15:00 CDT, Height, 78.182, kg, 05/11/22 21:15:00 CDT, Weight Keflex 500 Yes 500 mg = 1 M emoria mg oral 8-13 cap, PO, l capsule 16:05: QID, X 10 Jeanna nn 00 day, # 40 cap, 0 Refill(s), Pharmacy: [facility] #[id number], 160.02, cm, 05/11/22 21:15:00 CDT, Height, 78.182, kg, 05/11/22 21:15:00 CDT, Weight Pepcid 40 No Notes: Memori a mg oral 8-13 (Same as: l tablet 07:05: Pepcid) Pepcid 40 No Notes: Memori a mg oral 8-13 (Same as: l tablet 07:05: Pepcid) Rocephin + No Notes: Memor ia sterile 8-12 (Same As: l water 10 mL 23:00: Rocephin). Use with 100 mL NS and infuse over 30 min MEDICATION WASTE Product Size: 1000 mg Product Wasted: ___ mg Rocephin + No Notes: Memor ia sterile 8-12 (Same As: l water 10 mL 23:00: Rocephin). Use with 100 mL NS and infuse over 30 min MEDICATION WASTE Product Size: 1000 mg Product Wasted: ___ mg multivitami No 1 tab, Christiano sarthak n, 05-12 Route: PO, l 14:00: Drug Form: Antione 00 TAB, Dosing Weight 78.182, kg, Daily, Start date: 05/12/22 9:00:00 CDT, Duration: 30 day, Stop date: 06/10/22 9:00:00 CDT, 0 multivitami 0 No 1 tab, Christiano sarthak n, 05-12 Route: PO, l 14:00: Drug Form: Todd 00 TAB, Dosing Weight 78.182, kg, Daily, Start date: 05/12/22 9:00:00 CDT, Duration: 30 day, Stop date: 06/10/22 9:00:00 CDT, 0 Rocephin + No Notes: Memor ia sterile 8-12 (Same As: l water 10 mL 11:00: Rocephin). Use with 100 mL NS and infuse over 30 min MEDICATION WASTE Product Size: 1000 mg Product Wasted: ___ mg Rocephin + No Notes: Memor ia sterile 8-12 (Same As: l water 10 mL 11:00: Rocephin). Use with 100 mL NS and infuse over 30 min MEDICATION WASTE Product Size: 1000 mg Product Wasted: ___ mg Zofran ODT No Notes: Memor ia 8-12 (Same as: l 03:43: Zofran Todd 00 ODT) Zofran ODT No Notes: Memor ia 8-12 (Same as: l 03:43: Zofran Antione 00 ODT) Benadryl No Notes: Memoria 8-12 (Same as: l 02:52: Benadryl) Tylenol No Notes: Do Memor ia 8-12 not exceed l 02:52: 4 gm/day. (Same as: Tylenol) Benadryl No Notes: Memoria 8-12 (Same as: l 02:52: Benadryl) Tylenol No Notes: Do Memor ia 8-12 not exceed l 02:52: 4 gm/day. (Same as: Tylenol) Tylenol No Notes: Max Christiano sarthak 8-11 acetaminop l 12:36: hen 4000 Antione 00 mg/day (4 gm/day). (Same as: Tylenol Extra Strength) Tylenol No Notes: Max Christiano sarthak 8-11 acetaminop l 12:36: hen 4000 Antione 00 mg/day (4 gm/day). (Same as: Tylenol Extra Strength) DOCUSATE 0 Yes Take by [facility] PO 3-11 mouth. Health 09:46: 03 DOCUSATE 2021-0 Yes Take by [facility] CALCIUM PO 3-11 mouth. Health 09:46: 03 DOCUSATE 2021-0 Yes Take by [facility] PO 3-11 [...] 4 gm/day. Antione 00 (Same as: Tylenol) Acetaminoph Yes Notes: Do M emoria en 1-15 not exceed l 00:35: 4 gm/day. 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, 0 Ondansetron Yes Notes: Christiano sarthak 1-15 (Same as: l 00:28: Zofran) Todd 00 MEDICATION WASTE Product Size: 4 mg Product Wasted: ___ mg Saline No Notes: Memoria Flush 0.9% 1-15 Same as: l 00:28: BD Antione 00 Posiflush Sterile Sodium Yes 1,000 mL, Memori a Chloride 1-15 1000 l 0.9% 00:28: ml/hr, Todd (Bolus) IV 00 Infuse Over: 1 hr, Route: IV, 1,000, Drug form: INJ, ONCE, Priority: STAT, Dosing Weight 65 kg, Start date: 10/14/21 18:28:00 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 ity of (TRAZODONE 15:52: [place] ORAL) 14 [facility] trazodone 2020-10 Yes Take by Unive rs HCl 2-07 mouth. ity of (TRAZODONE 15:52: [place] ORAL) [facility] trazodone 2020-10 Yes Take by Unive rs HCl 2-07 mouth. ity of (TRAZODONE 15:52: [place] ORAL) 14 [facility] ibuprofen 2020-10 Yes 600 mg = 1 Me moria 600 mg oral 1-14 tab, PO, l tablet 10:59: Q8H, PRN Antione 00 pain, X 5 day, # 30 tab, 0 Refill(s) ibuprofen 2020-10 Yes 600 mg = 1 Me moria 600 mg oral 1-14 tab, PO, l tablet 10:59: Q8H, PRN Todd 00 pain, X 5 day, # 30 tab, 0 Refill(s) Acetaminoph 2020-10 No Notes: Christiano sarthak en 325 MG / -14 (acetamino l butalbital 10:07: phen-butal H ermann 50 MG / 00 bital-caff Caffeine 40 eine MG Oral 325-50-40m Tablet g) Do not [Esgic] exceed 4 gm/day of acetaminop hen. (Same as: Esgic, Fioricet) Acetaminoph 2020-10 No Notes: Christiano sarthak en [...] 55 Medical Branch traMADol 50 2020- No [id number] 50mg Take 1 Univers mg tablet 03-19 tablet by ity of 00:00: 00:00 mouth [place] 00 :00 every 6 Medical (six) Branch hours as needed (PAIN). ondansetron 2020- No [id number] 4mg Take 1 Univers 4 mg tablet 03-19 tablet by it y of 00:00: 00:00 mouth [place] 00 :00 every 8 Medical (eight) Branch hours as needed for Nausea and Vomiting (N/V). traMADol 50 2020- No [id number] 50mg Take 1 Univers mg tablet 03-19 tablet by ity of 00:00: 00:00 mouth [place] 00 :00 every 6 Medical (six) Branch hours as needed (PAIN). ondansetron 2020- No [id number] 4mg Take 1 Univers 4 mg tablet 03-19 tablet by it y of 00:00: 00:00 mouth [place] 00 :00 every 8 Medical (eight) Branch hours as needed for Nausea and Vomiting (N/V). Immunizations Ordered Immunization Filled Immunization Date Status Commen ts Source Name Name diphtheria/pertussis 2022-06-17 Completed Christiano rial , acel/tetanus adult 19:17:00 Herm nakul diphtheria/pertussis 2022-06-17 Completed Christiano rial , acel/tetanus adult 19:17:00 Yamila mota Vital Signs Vital Name Observation Time Observation Value Comments Source Body height 2021-12-09 15:39:00 160 [facility] Body weight 2021-12-09 15:39:00 [facility]132 [facility] BMI 2021-12-09 15:39:00 26.22 [facility] index 2021-12-09 15:39:00 85.43 % [facility] (BMI) [Percentile] Per age and sex Systolic blood 2021-09-06 21:45:00 100 mm[Hg] Univer sity of pressure [facility] Diastolic blood 2021-09-06 21:45:00 69 mm[Hg] Unive rsity of pressure [facility] Heart rate 2021-09-06 21:45:00 97 /min Univers ty [facility] [place] [facility] Body temperature 2021-09-06 21:45:00 36.72 Shanda [facility] Respiratory rate 2021-09-06 21:45:00 18 /min [facility] [place] [facility] Body height 2021-09-06 21:45:00 160 cm [facility] Body weight 2021-09-06 21:45:00 [facility] [place] [facility] BMI 2021-09-06 21:45:00 25.79 kg/m2 [facility] Body mass index 2021-09-06 21:45:00 84.16 % Unive rsity of (BMI) [Percentile] [facility] Per age and sex Branch Oxygen saturation in 2021-09-06 21:45:00 99 /min [facility] Arterial blood by [facility] Pulse oximetry Branch Temperature Oral (F) 2022-06-17 12:30:00 97.8 F [facility] Heart Rate 2022-06-17 12:30:00 [facility] Respitory Rate 2022-06-17 12:30:00 Memori al Todd Systolic (mm Hg) 2022-06-17 12:30:00 Christiano rial Antione Diastolic (mm Hg) 2022-06-17 12:30:00 Mem orial Antione Temperature Oral (F) 2022-06-17 05:00:00 98 F [facility] Heart Rate 2022-06-17 05:00:00 [facility] Respitory Rate 2022-06-17 05:00:00 Memori al Antione Systolic (mm Hg) 2022-06-17 05:00:00 Christiano rial Antione Diastolic (mm Hg) 2022-06-17 05:00:00 Mem orial Todd Temperature Oral (F) 2022-06-16 21:00:00 98.1 F [facility] Heart Rate 2022-06-16 21:00:00 [facility] Respitory Rate 2022-06-16 21:00:00 Memori al Todd Systolic (mm Hg) 2022-06-16 21:00:00 Christiano rial Todd Diastolic (mm Hg) 2022-06-16 21:00:00 Mem orial Antione Height 2022-06-09 13:47:00 160.02 cm [facility] Weight 2022-06-09 13:47:00 [facility] Todd BMI Calculated 2022-06-09 13:47:00 Memori al Antione Systolic (mm Hg) 2022-05-26 04:12:00 Christiano rial Todd Diastolic (mm Hg) 2022-05-26 04:12:00 Mem orial Todd Systolic (mm Hg) 2022-05-26 04:00:00 Christiano rial Antione Diastolic (mm Hg) 2022-05-26 04:00:00 Mem orial Antione Systolic (mm Hg) 2022-05-26 03:30:00 Christiano rial Todd Diastolic (mm Hg) 2022-05-26 03:30:00 Mem orial Todd Height 2022-05-26 00:20:00 160.02 cm [facility] BMI Calculated 2022-05-26 00:20:00 Memori al Todd Weight 2022-05-26 00:20:00 [facility] Heart Rate 2022-05-26 00:20:00 [facility] Respitory Rate 2022-05-26 00:20:00 Memori al Antione Temperature Oral (F) 2022-05-26 00:20:00 98.1 F [facility] Heart Rate 2022-05-13 15:29:07 [facility] Respitory Rate 2022-05-13 15:29:07 Memori al Todd Temperature Oral (F) 2022-05-13 15:28:58 98.6 F [facility] Systolic (mm Hg) 2022-05-13 15:28:51 Christiano rial Todd Diastolic (mm Hg) 2022-05-13 15:28:51 Mem orial Antione Heart Rate 2022-05-13 15:28:51 [facility] Heart Rate 2022-05-13 11:20:26 [facility] Respitory Rate 2022-05-13 11:20:26 Memori al Antione Temperature Oral (F) 2022-05-13 11:20:23 98 F [facility] Systolic (mm Hg) 2022-05-13 11:20:04 Christiano rial Antione Diastolic (mm Hg) 2022-05-13 11:20:04 Mem orial Antione Respitory Rate 2022-05-13 06:53:47 Memori al Todd Temperature Oral (F) 2022-05-13 06:53:43 98.6 F [facility] Systolic (mm Hg) 2022-05-13 06:53:37 Christiano rial Todd Diastolic (mm Hg) 2022-05-13 06:53:37 Mem orial Todd Height 2022-05-12 02:15:00 160.02 cm [facility] Weight 2022-05-12 02:15:00 [facility] Todd BMI Calculated 2022-05-12 02:15:00 Memori al Antione Systolic (mm Hg) 2022-05-11 13:00:00 Christiano rial Todd Diastolic (mm Hg) 2022-05-11 13:00:00 Mem orial Antione Height 2022-05-11 11:58:00 160.02 cm [facility] BMI Calculated 2022-05-11 11:58:00 Memori al Todd Weight 2022-05-11 11:58:00 [facility] Systolic (mm Hg) 2022-05-11 11:58:00 Christiano rial Antione Diastolic (mm Hg) 2022-05-11 11:58:00 Mem orial Todd Heart Rate 2022-05-11 11:58:00 [facility] Respitory Rate 2022-05-11 11:58:00 Memori al Antione Temperature Oral (F) 2022-05-11 11:58:00 97.3 F [facility] Systolic (mm Hg) 2022-03-24 02:16:00 Christiano rial Todd Diastolic (mm Hg) 2022-03-24 02:16:00 Mem orial Antione Systolic (mm Hg) 2022-03-24 01:45:00 Christiano rial Todd Diastolic (mm Hg) 2022-03-24 01:45:00 Mem orial Todd Systolic (mm Hg) 2022-03-24 01:06:00 Christiano rial Antione Diastolic (mm Hg) 2022-03-24 01:06:00 Mem orial Antione Height 2022-03-24 00:28:00 160.02 cm [facility] BMI Calculated 2022-03-24 00:28:00 Memori al Antione Weight 2022-03-24 00:28:00 [facility] Heart Rate 2022-03-24 00:28:00 [facility] Respitory Rate 2022-03-24 00:28:00 Memori al Antione Temperature Oral (F) 2022-03-24 00:28:00 98.3 F [facility] Height 2021-10-15 00:25:00 160.02 cm [facility] BMI Calculated 2021-10-15 00:25:00 Memori al Antione Weight 2021-10-15 00:25:00 [facility] Todd Systolic (mm Hg) 2021-10-15 00:25:00 Christiano rial Antione Diastolic (mm Hg) 2021-10-15 00:25:00 Mem orial Antione Heart Rate 2021-10-15 00:25:00 [facility] Respitory Rate 2021-10-15 00:25:00 Memori al Todd Temperature Oral (F) 2021-10-15 00:25:00 100.3 F [facility] Respitory Rate 2021-08-14 12:30:00 Memori al Antione Systolic (mm Hg) 2021-08-14 12:30:00 Christiano rial Antione Diastolic (mm Hg) 2021-08-14 12:30:00 Mem orial Antione Respitory Rate 2021-08-14 12:00:00 Memori al Todd Systolic (mm Hg) 2021-08-14 12:00:00 Christiano rial Todd Diastolic (mm Hg) 2021-08-14 12:00:00 Mem orial Antione Respitory Rate 2021-08-14 11:30:00 Giana Santana Systolic (mm Hg) 2021-08-14 11:30:00 Christiano Talbot Diastolic (mm Hg) 2021-08-14 11:30:00 Mem benny Talbot Height 2021-08-14 08:07:00 160.02 cm [facility] BMI Calculated 2021-08-14 08:07:00 Giana Santana Weight 2021-08-14 08:07:00 [facility] Heart Rate 2021-08-14 08:07:00 [facility] Temperature Oral (F) 2021-08-14 08:07:00 97.8 F [facility] Procedures Procedure Date / Time Performed Performing Clinician Laura glynn POCT TEST 2021-09-06 21:55:00 Sherri Oconnor [facility] Admission to [facility] surgery department<sup>1</sup > Encounters Start End Encounter Admission Attending Care Care Encounter Source Date/Time Date/Time Type Type Clinicians Facility Department ID 2023-02-09 Outpatient [facility] [id number] [place] 13:06:59 [id number] [facility] 2022-06-12 Inpatient EROS [facility] [id number] [facility] H 23:58:00 ASHLEY 2021-12-09 Outpatient [facility] [id number] [place] 09:51:23 [facility] 2021-12-09 Outpatient [facility] [id number] [place] 09:50:50 [facility] 2021-12-09 Outpatient [facility] [id number] [place] 09:50:50 [facility] 2021-12-08 Outpatient [facility] [id number] [place] 15:51:55 [facility] 2021-12-07 Outpatient [facility] [id number] [place] 09:07:02 [facility] 2022-06-13 2022-06-17 Inpatient [facility] [id number] Memoria 04:58:00 21:40:00 r Antione 05 [facility] 2022-06-13 2022-06-17 Inpatient [facility] [id number] Memoria 04:58:00 21:40:00 r Antione 05 [facility] 2022-06-12 2022-06-17 Outpatient Eros [facility] [id number] 23:58:00 16:40:00 Ashley Padgett 2022-06-15 2022-06-15 Outpatient [facility] [id number] [place] 00:45:00 00:45:00 Health 2022-06-12 2022-06-12 Outpatient [facility]H [facility] PIJFJTE OXM COH 00:00:00 00:00:00 [id number] 2022-06-11 2022-06-11 Outpatient Eros [facility] [id number] 21:00:00 21:00:00 Ashley Padgett 2022-05-26 2022-05-26 [facility] [id number] Memoria 00:10:34 04:15:[address] 2022-05-26 2022-05-26 [facility] [id number] Memoria 00:10:34 04:15:[address] 2022-05-25 2022-05-25 Outpatient Stefan [facility] [id number] 19:10:34 23:15:00 Suneet 04 2022-05-25 2022-05-25 Emergency E STEFAN, [facility] [id number] [facility] 19:10:00 23:15:00 SUNEET 2022-05-12 2022-05-13 Observatio nullFlavo [facility] [id number] Memoria 02:51:00 18:00:[address] 2022-05-12 2022-05-13 Observatio nullFlavo [facility] [id number] Memoria 02:51:00 18:00:[address] 2022-05-11 2022-05-13 Outpatient U MOTLEY, [facility] [id number] [facility] 21:51:00 13:00:00 SERENE 2022-05-11 2022-05-13 Outpatient Rosie [facility] [id number] 21:51:00 13:00:00 Serene 23 2022-05-11 2022-05-13 Outpatient Rosie [facility] [id number] 21:51:00 13:00:00 Serene 2022-05-11 2022-05-11 Emergency [facility] [id number] Memoria 11:43:57 13:15:00 r Todd 03 [facility] 2022-05-11 2022-05-11 Emergency [facility] [id number] Memoria 11:43:57 13:15:00 r Todd 03 [facility] 2022-05-11 2022-05-11 Outpatient Carlos, [facility] [id number] 06:43:57 08:15:00 Danny George 2022-05-11 2022-05-11 Emergency E CARLOS, [facility] [id number] [facility] 06:43:00 08:15:00 DANNY 2022-03-24 2022-03-24 Emergency [facility] [id number] Memoria 00:17:28 02:43:00 r Todd 02 [facility] 2022-03-24 2022-03-24 Emergency [facility] [id number] Memoria 00:17:28 02:43:00 r Todd 02 [facility] 2022-03-23 2022-03-23 Outpatient Carlos, [facility] [id number] 19:17:28 21:43:00 Danny George 2022-03-23 2022-03-23 Emergency E CARLOS, [facility] [id number] [facility] 19:17:00 21:43:00 DANNY 2022-01-19 2022-01-19 Telephone ALEX Olvera [id number] [place] 00:00:00 00:00:[address] [id number] Health [id number] [id number] 2022-01-05 2022-01-05 Telephone ALEX Olvera 6410 [id number] [place] 00:00:00 00:00:[address] [id number] Health [id number] [id number] 2021-12-26 2021-12-26 Telephone ALEX Olvera 6410 [id number] [place] 00:00:00 00:00:[address] [id number] Health 9.2.7.2.686 [id number] 2021-12-21 2021-12-21 Telephone Wade [facility] 6410 [id number] [place] 00:00:00 00:00:[address] [id number] Health 9.2.7.2.686 [id number] 2021-12-09 2021-12-09 Nurse Only Lexy Paulson [facility] 6410 1.2.840. [id number] [place] 00:00:00 00:00:[address] [id number] Health [id number] [id number] 2021-12-08 2021-12-08 Education Counselor, [facility] 6410 [id number] [place] 14:00:00 15:00:[address] [id number] Health Genetic [id number] [id number] 2021-10-19 2021-10-19 Outpatient SHERRI SNELL [facility] [id number] Univers 09:00:00 09:00:00 [facility] [place] [facility] 2021-10-15 2021-10-15 Emergency [facility] [id number] Memoria 00:13:06 03:05:00 hunter Talbot 01 l [facility] 2021-10-15 2021-10-15 Emergency [facility] [id number] Memoria 00:13:06 03:05:00 hunter Talbot 01 l [facility] 2021-10-14 2021-10-14 Outpatient PANDA Dee [facility]PL [id number] 18:13:06 21:05:00 Melecioconnie Chavez 2021-10-14 2021-10-14 Emergency E RHYS DEEBL MHBL [id number] MHBL 18:13:00 21:05:00 MELECIO 2021-10-11 2021-10-11 Outpatient R OCONNOR, [facility] [id number] Univers 15:45:00 15:45:00 ity [facility] [place] [facility] 2021-09-21 2021-09-21 Outpatient R STEVEN [facility] [id number] Univers 14:30:00 15:10:35 ACREN ity [facility] [place] [facility] 2021-09-21 2021-09-21 Laboratory Only, Ang Db Test [facility] 1.2.8 40.114 [id number] Univers 14:30:00 14:45:00 [facility] [id number] ity of [place] [id number] Emery as COLE?BLEA [id number] [facility] [address] MEDICAL OFFICE BUILDING 2021-09-07 2021-09-07 Outpatient R SHERRI OCONNOR [facility] [id number] Univers 09:00[facility]00 [facility] 2021-09-07 2021-09-07 Outpatient R ANASTASIA [facility] [id number] Univers 09:00:00 09:00:[facility] 2021-09-06 2021-09-06 Outpatient R ANASTASIA [facility] [id number] Univers 16:45:00 16:45:00 [facility] 2021-09-06 2021-09-06 Outpatient R ANASTASIA [facility] [id number] Univers 16:45:00 16:45:00 [facility] 2021-09-06 2021-09-06 Mailing Section Clerk Shruti Sultana Lab Main [facility] 1.2.8 40.114 [id number] Univers 16:28:59 16:43:59 Visit Sherri Oconnor Jose AGRCIA [id number] ity of [facility] [id number] [id number] Tn saadshazia [facility] [address] BUILDING 2021-09-06 2021-09-06 Office Sherri Oconnor [facility] [id number] Univers 15:20:42 16:09:45 Visit Jose [place] [id number] i ty of [facility] [id number] PROF[place] [id number] Tn dical NAL [address] BUILDING 2021-09-06 2021-09-06 Outpatient R SHERRI OCONNOR [facility] [id number] Univers 15:15:00 16:09:45 ity of [facility] 2021-09-06 2021-09-06 Orders Doctor NORRIS 1.2.840.114 [id number] Univers 00:00:00 00:00:00 Only Unassigned, TRICIA [id number] ity of [facility] 4.2.7.2.686 Emery as [id number] [address] 2021-08-14 2021-08-14 Emergency [facility] [id number] Memoria 08:00:28 13:00:00 hunter Talbot 00 l [facility] 2021-08-14 2021-08-14 Emergency [facility] [id number] Memoria 08:00:28 13:00:00 hunter Talbot 00 l [facility] 2021-08-14 2021-08-14 Outpatient Viet [facility] [id number] 02:00:28 07:00:00 Jeremías Barone 00 2021-02-02 2021-02-02 [facility] [id number] Univers 00:00:00 00:00:00 [facility] 2020-04-24 2020-04-24 Outpatient Hunter DUNCAN [facility] [id number] Univers 08:00:00 08:00:00 CRISTAL ity [facility] [place] [facility] 2020-04-19 2020-04-19 Letter [facility] [id number] Univers 00:00:00 00:00:00 (Out) XYDO [id number] it y of [place] 4.2.7.2.686 Emery as Professio [id number] Tn dical nal [address] One 2020-04-15 2020-04-15 Telephone [facility] 1.2.840.114 [id number] Univers 00:00:00 00:00:00 OmXYDO [id number] it y of [place] 4.2.7.2.686 [place] as Professio [phone] Tn dical nal [address] [facility] 2020-04-13 2020-04-13 Urgent Pob1, Acute Care Clinic [facility] 1. 2.840.114 [id number] Univers 14:39:08 14:59:08 Melissa Duncan Cristal [facility] [id number] ity jonny Cosmeton 4.2.7.2.686 Emery as Professio [phone] Tn dicne nal [address] [facility] 2020-04-13 2020-04-13 Outpatient [facility] [id number] Univers 14:40:00 14:40:00 CRISTAL ity [facility] [place] [facility] 2020-03-19 2020-03-19 Emergency [facility] [id number] Univers 08:59:46 12:08:00 Manuel Garcia [id number] ity [facility] 4.2.7.2.686 [place] [facility] [id number] [address] 2020-03-19 2020-03-19 Emergency X [facility] ERT [id number] Univers 08:59:46 12:08:00 MANUEL tatum [facility] Results Test Description Test Time Test Comments Results Result Comments Source HEMATOLOGY 2022-06-16 03:26:00 Test Item Value Reference Range Interpretation Comme nts Hgb (test code = Hgb) 9.3 12.0-16.0 [id number] 03:26:00 Test Item Value Reference Range Interpretation Comments Hct (test code = Hct) 27.7 36.0-48.0 [id number] 03:26:00 Test Item Value Reference Range Interpretation Comments Hgb (test code = Hgb) 9.3 12.0-16.0 [facility] [id number] 03:26:00 Test Item Value Reference Range Interpretation Comments Hct (test code = Hct) 27.7 36.0-48.0 [facility]2022-09-14 21:06:00 Test Item Value Reference Range Interpretation Comments Glucose Lvl (test code = Glucose Lvl) 67 70-99 [facility]2022-09-14 21:06:00 Test Item Value Reference Range Interpretation Comments BUN (test code = BUN) 4 7-22 [place] [id number] 21:06:00 Test Item Value Reference Range Interpretation Comments Creatinine Lvl (test code = Creatinine 0.47 0.50-1.40 Lvl) [place] [id number] 21:06:00 Test Item Value Reference Range Interpretation Comments Sodium Lvl (test code = Sodium Lvl) 138 135-145 [place] [id number] 21:06:00 Test Item Value Reference Range Interpretation Comments Potassium Lvl (test code = Potassium 3.9 3.5-5.1 Lvl) [place] [id number] 21:06:00 Test Item Value Reference Range Interpretation Comments Chloride Lvl (test code = Chloride Lvl) 109 95-109 [place] [id number] 21:06:00 Test Item Value Reference Range Interpretation Comments CO2 (test code = CO2) 24 24-32 [place] [id number] 21:06:00 Test Item Value Reference Range Interpretation Comments Calcium Lvl (test code = Calcium Lvl) 8.8 8.5-10.5 [place] [id number] 21:06:00 Test Item Value Reference Range Interpretation Comments Total Protein (test code = Total 6.2 6.4-8.4 Protein) [place] [id number] 21:06:00 Test Item Value Reference Range Interpretation Comments Albumin Lvl (test code = Albumin Lvl) 2.5 3.5-5.0 [place] [id number] 21:06:00 Test Item Value Reference Range Interpretation Comments ALT (test code = ALT) 9 See_Comment [Auto mated message] The system which ge nerated this result transmit ross reference range : <=65. The reference range was not used to interpr et this result as corrine l/abnormal. [place] 941382-09-14 21:06:00 Test Item Value Reference Range Interpretation Comments AST (test code = AST) 14 See_Comment [Auto mated message] The system which ge nerated this result transmit rsos reference range : <=37. The reference range was not used to interpr et this result as corrine l/abnormal. [facility]2022-09-14 21:06:00 Test Item Value Reference Range Interpretation Comments Alk Phos (test code = Alk Phos) 156 39-136 [place] 941382-09-14 21:06:00 Test Item Value Reference Range Interpretation Comments Bili Total (test code = Bili Total) 1.0 0.2-1.3 [place] 941382-09-14 21:06:00 Test Item Value Reference Range Interpretation Comments AGAP (test code = AGAP) 8.9 10.0-20.0 [facility]2022-09-14 21:06:00 Test Item Value Reference Range Interpretation Comments B/C Ratio (test code = B/C Ratio) 9 1 6-25 [place] 941382-09-14 21:06:00 Test Item Value Reference Range Interpretation Comments Globulin (test code = Globulin) 3.7 2.7-4.2 [place] 941382-09-14 21:06:00 Test Item Value Reference Range Interpretation Comments A/G Ratio (test code = A/G Ratio) 0.7 1 0.7-1.6 [facility]2022-09-14 21:06:00 Test Item Value Reference Range Interpretation Comments eGFR (test code = eGFR) 141 [facility]2022-09-14 21:06:00 Test Item Value Reference Range Interpretation Comments Amylase Lvl (test code = Amylase Lvl) 40 25-115 [place] 941382-09-14 21:06:00 Test Item Value Reference Range Interpretation Comments Lipase Lvl (test code = Lipase Lvl) 77 73-393 [facility]2022-09-14 21:06:00 Test Item Value Reference Range Interpretation Comments Glucose Lvl (test code = Glucose Lvl) 67 70-99 [place] 941382-09-14 21:06:00 Test Item Value Reference Range Interpretation Comments BUN (test code = BUN) 4 7-22 [place] 941382-09-14 21:06:00 Test Item Value Reference Range Interpretation Comments Creatinine Lvl (test code = Creatinine 0.47 0.50-1.40 Lvl) [facility]2022-09-14 21:06:00 Test Item Value Reference Range Interpretation Comments Sodium Lvl (test code = Sodium Lvl) 138 135-145 [facility]2022-09-14 21:06:00 Test Item Value Reference Range Interpretation Comments Potassium Lvl (test code = Potassium 3.9 3.5-5.1 Lvl) [place] 941382-09-14 21:06:00 Test Item Value Reference Range Interpretation Comments Chloride Lvl (test code = Chloride Lvl) 109 95-109 [place] 941382-09-14 21:06:00 Test Item Value Reference Range Interpretation Comments CO2 (test code = CO2) 24 24-32 [place] 941382-09-14 21:06:00 Test Item Value Reference Range Interpretation Comments Calcium Lvl (test code = Calcium Lvl) 8.8 8.5-10.5 [place] 941382-09-14 21:06:00 Test Item Value Reference Range Interpretation Comments Total Protein (test code = Total 6.2 6.4-8.4 Protein) [place] 941382-09-14 21:06:00 Test Item Value Reference Range Interpretation Comments Albumin Lvl (test code = Albumin Lvl) 2.5 3.5-5.0 [facility]2022-09-14 21:06:00 Test Item Value Reference Range Interpretation Comments ALT (test code = ALT) 9 See_Comment [Auto mated message] The system which ge nerated this result transmit ross reference range : <=65. The reference range was not used to interpr et this result as corrine l/abnormal. [facility] [id number] 21:06:00 Test Item Value Reference Range Interpretation Comments AST (test code = AST) 14 See_Comment [Auto mated message] The system which ge nerated this result transmit ross reference range : <=37. The reference range was not used to interpr et this result as corrine l/abnormal. [facility] [id number] 21:06:00 Test Item Value Reference Range Interpretation Comments Alk Phos (test code = Alk Phos) 156 39-136 [place] 941382-09-14 21:06:00 Test Item Value Reference Range Interpretation Comments Bili Total (test code = Bili Total) 1.0 0.2-1.3 [facility] 8844[facility] 21:06:00 Test Item Value Reference Range Interpretation Comments AGAP (test code = AGAP) 8.9 10.0-20.0 [place] 941382-09-14 21:06:00 Test Item Value Reference Range Interpretation Comments B/C Ratio (test code = B/C Ratio) 9 1 6-25 [place] [address]-09-14 21:06:00 Test Item Value Reference Range Interpretation Comments Globulin (test code = Globulin) 3.7 2.7-4.2 [place] 941382-09-14 21:06:00 Test Item Value Reference Range Interpretation Comments A/G Ratio (test code = A/G Ratio) 0.7 1 0.7-1.6 [place] [address]-09-14 21:06:00 Test Item Value Reference Range Interpretation Comments eGFR (test code = eGFR) 141 [place] 941382-09-14 21:06:00 Test Item Value Reference Range Interpretation Comments Amylase Lvl (test code = Amylase Lvl) 40 25-115 [place] 941382-09-14 21:06:00 Test Item Value Reference Range Interpretation Comments Lipase Lvl (test code = Lipase Lvl) 77 73-393 [place] 783402-09-14 02:08:00 Test Item Value Reference Range Interpretation Comments PT (test code = PT) 12.9 s 12.0-14.7 [place] [address]-09-14 02:08:00 Test Item Value Reference Range Interpretation Comments INR (test code = INR) 0.98 1 0.85-1.17 [place] [address]-09-14 02:08:00 Test Item Value Reference Range Interpretation Comments PTT (test code = PTT) 29.0 s 22.9-35.8 [place] [address]-09-14 02:08:00 Test Item Value Reference Range Interpretation Comments PT (test code = PT) 12.9 s 12.0-14.7 [place] [address]-09-14 02:08:00 Test Item Value Reference Range Interpretation Comments INR (test code = INR) 0.98 1 0.85-1.17 [place] [address]-09-14 02:08:00 Test Item Value Reference Range Interpretation Comments PTT (test code = PTT) 29.0 s 22.9-35.8 [facility] [id number] 06:51:00 Test Item Value Reference Range Interpretation Comments ABO/Rh (test code = ABO/Rh) O POS [facility] [id number] 06:51:00 Test Item Value Reference Range Interpretation Comments Antibody Scrn (test Negative (06/13/22 1:51 code = Antibody Scrn) AM) [facility]IBGXE7642-47-16 06:51:00 Test Item Value Reference Range Interpretation Comments WBC (test code = WBC) 11.9 3.7-10.4 [facility] HospitalZdwlobxPZIFVTQHOS6394-14-94 06:51:00 Test Item Value Reference Range Interpretation Comments RBC (test code = RBC) 3.90 4.20-5.40 [facility] HospitalDygrurvKMPNMQKXZI1533-85-36 06:51:00 Test Item Value Reference Range Interpretation Comments Hgb (test code = Hgb) 10.9 12.0-16.0 [facility] HospitalRnoxpdvNSODVIKHNP1644-87-94 06:51:00 Test Item Value Reference Range Interpretation Comments Hct (test code = Hct) 32.8 36.0-48.0 [facility] HospitalTqoqpydQZBWDNNFAE9305-28-23 06:51:00 Test Item Value Reference Range Interpretation Comments MCV (test code = MCV) 84.0 80.0-98.0 [facility] HospitalEecfwlyEAHDYEOFTI5200-80-67 06:51:00 Test Item Value Reference Range Interpretation Comments MCH (test code = MCH) 28.0 pg 27.0-31.0 [facility] HospitalUureryqHYLKKRROPQ4912-87-83 06:51:00 Test Item Value Reference Range Interpretation Comments MCHC (test code = MCHC) 33.3 32.0-36.0 [facility] HospitalQfgfmarOTNPCIVVGZ4027-94-35 06:51:00 Test Item Value Reference Range Interpretation Comments RDW (test code = RDW) 13.5 11.5-14.5 [facility] HospitalDmyqaowGLZGEPVVSG7422-30-66 06:51:00 Test Item Value Reference Range Interpretation Comments Platelet (test code = Platelet) 199 133-450 [facility] HospitalCimydekKBBICAOJCC3462-87-92 06:51:00 Test Item Value Reference Range Interpretation Comments MPV (test code = MPV) 10.5 7.4-10.4 [place] 783402-09-13 06:51:00 Test Item Value Reference Range Interpretation Comments Segs (test code = Segs) 78.3 45.0-75.0 [place] 783402-09-13 06:51:00 Test Item Value Reference Range Interpretation Comments Lymphocytes (test code = Lymphocytes) 13.8 20.0-40.0 [place] 783402-09-13 06:51:00 Test Item Value Reference Range Interpretation Comments Monocytes (test code = Monocytes) 6.7 2.0-12.0 [place] [address]-09-13 06:51:00 Test Item Value Reference Range Interpretation Comments Eosinophils (test code = 0.9 See_Comment [A utomated message] The Eosinophils) system which ge nerated this result tra nsmitted reference range : <=4.0. The reference r socorro was not used to int erpret this result as normal/abnormal . [place] 783402-09-13 06:51:00 Test Item Value Reference Range Interpretation Comments Basophils (test code = 0.3 See_Comment [Aut omated message] The Basophils) system which ge nerated this result tra nsmitted reference range : <=1.0. The reference r socorro was not used to int erpret this result as normal/abnormal . [place] 783402-09-13 06:51:00 Test Item Value Reference Range Interpretation Comments Neutrophils # (test code = Neutrophils 9.3 1.5-8.1 #) [place] 783402-09-13 06:51:00 Test Item Value Reference Range Interpretation Comments Lymphocytes # (test code = Lymphocytes 1.6 1.0-5.5 #) [place] [address]-09-13 06:51:00 Test Item Value Reference Range Interpretation Comments Monocytes # (test code 0.8 See_Comment [Aut omated message] The = Monocytes #) system which generated this result tra nsmitted reference range : <=0.8. The reference r socorro was not used to int erpret this result as normal/abnormal . [facility] HospitalWraduveZJGSQJQJKO9020-46-82 06:51:00 Test Item Value Reference Range Interpretation Comments Eosinophils # (test code 0.1 See_Comment [A utomated message] The = Eosinophils #) system whic h generated this result tra nsmitted reference range : <=0.5. The reference r socorro was not used to int erpret this result as normal/abnormal . [facility] UxptsznGJJTBVBRHF1863-76-26 06:51:00 Test Item Value Reference Range Interpretation Comments Hep Bs Ag (test code Negative *NA*(06/13/22 = Hep Bs Ag) 1:51 AM) [facility]yqtxydUFCBTDKIES9797-72-37 06:51:00 Test Item Value Reference Range Interpretation Comments HIV Ag/Ab 4th Gen Negative *NA*(06/13/22 (test code = HIV 1:51 AM) Ag/Ab 4th Gen) [facility] CenterSgsbmcfIZCMZHOBUQ8455-23-64 06:51:00 Test Item Value Reference Range Interpretation Comments Treponemal Ab (test code Non-Reactive = Treponemal Ab) *NA*(06/13/22 1:51 AM) [facility] [id number] 06:51:00 Test Item Value Reference Range Interpretation Comments ABO/Rh (test code = ABO/Rh) O POS [facility] [employer] [id number] 06:51:00 Test Item Value Reference Range Interpretation Comments Antibody Scrn (test Negative (06/13/22 1:51 code = Antibody Scrn) AM) [facility] CenterMlddsdfXSUAYJPDDR1784-47-21 06:51:00 Test Item Value Reference Range Interpretation Comments WBC (test code = WBC) 11.9 3.7-10.4 [facility] CenterCqpggowGBVWPBRDJN7011-19-93 06:51:00 Test Item Value Reference Range Interpretation Comments RBC (test code = RBC) 3.90 4.20-5.40 [facility] BcnhbfdLVEFELGSWB3491-79-42 06:51:00 Test Item Value Reference Range Interpretation Comments Hgb (test code = Hgb) 10.9 12.0-16.0 [facility] JtysbssHMUIMVFIDP3792-22-48 06:51:00 Test Item Value Reference Range Interpretation Comments Hct (test code = Hct) 32.8 36.0-48.0 [facility] CenterWucwclxARNCNYEUCX9141-13-58 06:51:00 Test Item Value Reference Range Interpretation Comments MCV (test code = MCV) 84.0 80.0-98.0 [facility] CenterUfflrrtTCCMIBSIYC0905-44-40 06:51:00 Test Item Value Reference Range Interpretation Comments MCH (test code = MCH) 28.0 pg 27.0-31.0 [facility] HospitalEdmxahhDQPQWKXUSW7417-64-78 06:51:00 Test Item Value Reference Range Interpretation Comments MCHC (test code = MCHC) 33.3 32.0-36.0 [place] 783402-09-13 06:51:00 Test Item Value Reference Range Interpretation Comments RDW (test code = RDW) 13.5 11.5-14.5 [facility] HospitalOyacgxrSBZTQURAYK7286-97-61 06:51:00 Test Item Value Reference Range Interpretation Comments Platelet (test code = Platelet) 199 133-450 [facility] HospitalVcipowsUXOMKRMJOJ0789-93-09 06:51:00 Test Item Value Reference Range Interpretation Comments MPV (test code = MPV) 10.5 7.4-10.4 [place] 783402-09-13 06:51:00 Test Item Value Reference Range Interpretation Comments Segs (test code = Segs) 78.3 45.0-75.0 [facility] HospitalDdpsbhiDXPAUIUCPG1898-27-35 06:51:00 Test Item Value Reference Range Interpretation Comments Lymphocytes (test code = Lymphocytes) 13.8 20.0-40.0 [facility] HospitalBkoicaqGZBAIEUXPL0498-89-40 06:51:00 Test Item Value Reference Range Interpretation Comments Monocytes (test code = Monocytes) 6.7 2.0-12.0 [place] 783402-09-13 06:51:00 Test Item Value Reference Range Interpretation Comments Eosinophils (test code = 0.9 See_Comment [A utomated message] The Eosinophils) system which ge nerated this result tra nsmitted reference range : <=4.0. The reference r socorro was not used to int erpret this result as normal/abnormal . [facility] HospitalIhndplrTUVGDVDFTP7276-26-35 06:51:00 Test Item Value Reference Range Interpretation Comments Basophils (test code = 0.3 See_Comment [Aut omated message] The Basophils) system which ge nerated this result tra nsmitted reference range : <=1.0. The reference r socorro was not used to int erpret this result as normal/abnormal . [facility] HospitalSneglmzRUXPGXSOMJ8363-70-69 06:51:00 Test Item Value Reference Range Interpretation Comments Neutrophils # (test code = Neutrophils 9.3 1.5-8.1 #) [facility] HospitalSeqeyasDNBTJTOXQN1621-98-82 06:51:00 Test Item Value Reference Range Interpretation Comments Lymphocytes # (test code = Lymphocytes 1.6 1.0-5.5 #) [facility] HospitalFnyydohQRAINPJQAO3007-24-44 06:51:00 Test Item Value Reference Range Interpretation Comments Monocytes # (test code 0.8 See_Comment [Aut omated message] The = Monocytes #) system which generated this result tra nsmitted reference range : <=0.8. The reference r socorro was not used to int erpret this result as normal/abnormal . [facility] HospitalEioyznoVPKPLHPTES1805-36-00 06:51:00 Test Item Value Reference Range Interpretation Comments Eosinophils # (test code 0.1 See_Comment [A utomated message] The = Eosinophils #) system whic h generated this result tra nsmitted reference range : <=0.5. The reference r socorro was not used to int erpret this result as normal/abnormal . [facility]HelgqrmLLTHFXLELH2246-64-71 06:51:00 Test Item Value Reference Range Interpretation Comments Hep Bs Ag (test code Negative *NA*(06/13/22 = Hep Bs Ag) 1:51 AM) [facility] HospitalPnrkrycYDQENMRVCJ3992-63-09 06:51:00 Test Item Value Reference Range Interpretation Comments HIV Ag/Ab 4th Gen Negative *NA*(06/13/22 (test code = HIV 1:51 AM) Ag/Ab 4th Gen) [facility] HospitalJrhubfwEAIEMQWFTT9286-56-34 06:51:00 Test Item Value Reference Range Interpretation Comments Treponemal Ab (test code Non-Reactive = Treponemal Ab) *NA*(06/13/22 1:51 AM) [facility] HospitalHdkpaijKJALCUXASP7892-55-57 13:49:00 Test Item Value Reference Range Interpretation Comments Coronavirus (COVID-19) Detected *ABN*(06/09/22 LUCY (test code = 8:49 AM) Coronavirus (COVID-19) LUCY) [facility] HospitalAshuczrCOUINEGPIT0818-41-81 13:49:00 Test Item Value Reference Range Interpretation Comments Coronavirus (COVID-19) Detected *ABN*(06/09/22 LUCY (test code = 8:49 AM) Coronavirus (COVID-19) LCUY) [place] 706602-08-26 02:15:00 Test Item Value Reference Range Interpretation Comments UA Color (test code = Yellow *NA*(05/25/22 UA Color) 9:15 PM) [facility] [id number] 02:15:00 Test Item Value Reference Range Interpretation Comments UA Turbidity (test code Slight Cloudy = UA Turbidity) (05/25/22 9:15 PM) [facility] AND [id number] 02:15:00 Test Item Value Reference Range Interpretation Comments UA Spec Grav (test code = UA Spec 1.015 1 Grav) [facility] AND [id number] 02:15:00 Test Item Value Reference Range Interpretation Comments UA pH (test code = UA pH) 6.5 1 5.0-8.0 [facility] AND [id number] 02:15:00 Test Item Value Reference Range Interpretation Comments UA Protein (test code Negative (05/25/22 9:15 = UA Protein) PM) [facility] AND [id number] 02:15:00 Test Item Value Reference Range Interpretation Comments UA Glucose (test code Negative (05/25/22 9:15 = UA Glucose) PM) [facility] AND [id number] 02:15:00 Test Item Value Reference Range Interpretation Comments UA Ketones (test code Negative *NA*(05/25/22 = UA Ketones) 9:15 PM) [facility] AND [id number] 02:15:00 Test Item Value Reference Range Interpretation Comments UA Bili (test code = Negative *NA*(05/25/22 UA Bili) 9:15 PM) [facility] AND [id number] 02:15:00 Test Item Value Reference Range Interpretation Comments UA Blood (test code = Negative (05/25/22 9:15 UA Blood) PM) [facility] AND [id number] 02:15:00 Test Item Value Reference Range Interpretation Comments UA Urobilinogen (test code = UA 0.2 0.1-1.0 Urobilinogen) [facility] AND [id number] 02:15:00 Test Item Value Reference Range Interpretation Comments UA Nitrite (test code Negative (8/25/22 9:15 = UA Nitrite) PM) [facility] [id number] 02:15:00 Test Item Value Reference Range Interpretation Comments UA Leuk Est (test code Small *ABN*(05/25/22 = UA Leuk Est) 9:15 PM) [facility] AND [id number] 02:15:00 Test Item Value Reference Range Interpretation Comments UA Sq Epi (test code = UA Sq Epi) Many /LPF [facility] AND [id number] 02:15:00 Test Item Value Reference Range Interpretation Comments UA WBC (test code = 8 See_Comment [Automa ross message] The UA WBC) system which ge nerated this result transmit ross reference range : <=5. The reference range was not used to interpr et this result as corrine l/abnormal. [facility] [id number] 02:15:00 Test Item Value Reference Range Interpretation Comments UA RBC (test code = 2 See_Comment [Automa ross message] The UA RBC) system which ge nerated this result transmit ross reference range : <=2. The reference range was not used to interpr et this result as corrine l/abnormal. [facility] AND [id number] 02:15:00 Test Item Value Reference Range Interpretation Comments UA Bacteria (test code = UA Occasional /HPF Bacteria) [facility] [id number] 02:15:00 Test Item Value Reference Range Interpretation Comments UA Mucus (test code = UA Mucus) Few /LPF [facility] [id number] 02:15:00 Test Item Value Reference Range Interpretation Comments U Creatinine (test code = U Creatinine) 67.60 [facility] [id number] 02:15:00 Test Item Value Reference Range Interpretation Comments U Protein (test code = U Protein) 12.1 [facility] [id number] 02:15:00 Test Item Value Reference Range Interpretation Comments U Prot/Creat (test code = U 0.18 1 Prot/Creat) [facility] [id number] 02:15:00 Test Item Value Reference Range Interpretation Comments UA Color (test code = Yellow *NA*(05/25/22 UA Color) 9:15 PM) [facility] AND [id number] 02:15:00 Test Item Value Reference Range Interpretation Comments UA Turbidity (test code Slight Cloudy = UA Turbidity) (05/25/22 9:15 PM) [facility] [id number] 02:15:00 Test Item Value Reference Range Interpretation Comments UA Spec Grav (test code = UA Spec 1.015 1 Grav) [facility] [id number] 02:15:00 Test Item Value Reference Range Interpretation Comments UA pH (test code = UA pH) 6.5 1 5.0-8.0 [facility] [id number] 02:15:00 Test Item Value Reference Range Interpretation Comments UA Protein (test code Negative (05/25/22 9:15 = UA Protein) PM) [facility] [id number] 02:15:00 Test Item Value Reference Range Interpretation Comments UA Glucose (test code Negative (05/25/22 9:15 = UA Glucose) PM) [facility] AND [id number] 02:15:00 Test Item Value Reference Range Interpretation Comments UA Ketones (test code Negative *NA*(05/25/22 = UA Ketones) 9:15 PM) [facility] [id number] 02:15:00 Test Item Value Reference Range Interpretation Comments UA Bili (test code = Negative *NA*(05/25/22 UA Bili) 9:15 PM) [facility] AND [id number] 02:15:00 Test Item Value Reference Range Interpretation Comments UA Blood (test code = Negative (05/25/22 9:15 UA Blood) PM) [facility] [id number] 02:15:00 Test Item Value Reference Range Interpretation Comments UA Urobilinogen (test code = UA 0.2 0.1-1.0 Urobilinogen) [facility] [id number] 02:15:00 Test Item Value Reference Range Interpretation Comments UA Nitrite (test code Negative (05/25/22 9:15 = UA Nitrite) PM) [facility] [id number] 02:15:00 Test Item Value Reference Range Interpretation Comments UA Leuk Est (test code Small *ABN*(05/25/22 = UA Leuk Est) 9:15 PM) [facility] AND [id number] 02:15:00 Test Item Value Reference Range Interpretation Comments UA Sq Epi (test code = UA Sq Epi) Many /LPF [facility] AND [id number] 02:15:00 Test Item Value Reference Range Interpretation Comments UA WBC (test code = 8 See_Comment [Automa ross message] The UA WBC) system which ge nerated this result transmit ross reference range : <=5. The reference range was not used to interpr et this result as corrine l/abnormal. [facility] AND [id number] 02:15:00 Test Item Value Reference Range Interpretation Comments UA RBC (test code = 2 See_Comment [Automa ross message] The UA RBC) system which ge nerated this result transmit ross reference range : <=2. The reference range was not used to interpr et this result as corrine l/abnormal. [facility] AND [id number] 02:15:00 Test Item Value Reference Range Interpretation Comments UA Bacteria (test code = UA Occasional /HPF Bacteria) [facility] AND [id number] 02:15:00 Test Item Value Reference Range Interpretation Comments UA Mucus (test code = UA Mucus) Few /LPF [place] [id number] 02:15:00 Test Item Value Reference Range Interpretation Comments U Creatinine (test code = U Creatinine) 67.60 [place] [id number] 02:15:00 Test Item Value Reference Range Interpretation Comments U Protein (test code = U Protein) 12.1 [place] [id number] 02:15:00 Test Item Value Reference Range Interpretation Comments U Prot/Creat (test code = U 0.18 1 Prot/Creat) [place] [id number] 01:12:00 Test Item Value Reference Range Interpretation Comments Glucose Lvl (test code = Glucose Lvl) 82 70-99 [place] [id number] 01:12:00 Test Item Value Reference Range Interpretation Comments BUN (test code = BUN) 7 7-22 [place] 941382-08-26 01:12:00 Test Item Value Reference Range Interpretation Comments Creatinine Lvl (test code = Creatinine 0.51 0.50-1.40 Lvl) [place] 941382-08-26 01:12:00 Test Item Value Reference Range Interpretation Comments Sodium Lvl (test code = Sodium Lvl) 138 135-145 [place] [address]-08-26 01:12:00 Test Item Value Reference Range Interpretation Comments Potassium Lvl (test code = Potassium 4.1 3.5-5.1 Lvl) [place] [address]-08-26 01:12:00 Test Item Value Reference Range Interpretation Comments Chloride Lvl (test code = Chloride Lvl) 108 95-109 [place] [address]-08-26 01:12:00 Test Item Value Reference Range Interpretation Comments CO2 (test code = CO2) 20 24-32 [place] [address]-08-26 01:12:00 Test Item Value Reference Range Interpretation Comments Calcium Lvl (test code = Calcium Lvl) 9.2 8.5-10.5 [place] [address]-08-26 01:12:00 Test Item Value Reference Range Interpretation Comments Total Protein (test code = Total 6.8 6.4-8.4 Protein) [place] [address]-08-26 01:12:00 Test Item Value Reference Range Interpretation Comments Albumin Lvl (test code = Albumin Lvl) 2.8 3.5-5.0 [place] [address]-08-26 01:12:00 Test Item Value Reference Range Interpretation Comments ALT (test code = ALT) 14 See_Comment [Auto mated message] The system which ge nerated this result transmit ross reference range : <=65. The reference range was not used to interpr et this result as corrine l/abnormal. [place] [address]-08-26 01:12:00 Test Item Value Reference Range Interpretation Comments AST (test code = AST) 21 See_Comment [Auto mated message] The system which ge nerated this result transmit ross reference range : <=37. The reference range was not used to interpr et this result as corrine l/abnormal. [place] [address]-08-26 01:12:00 Test Item Value Reference Range Interpretation Comments Alk Phos (test code = Alk Phos) 140 39-136 [place] [address]-08-26 01:12:00 Test Item Value Reference Range Interpretation Comments Bili Total (test code = Bili Total) 0.7 0.2-1.3 [place] 941382-08-26 01:12:00 Test Item Value Reference Range Interpretation Comments AGAP (test code = AGAP) 14.1 10.0-20.0 [place] 941382-08-26 01:12:00 Test Item Value Reference Range Interpretation Comments B/C Ratio (test code = B/C Ratio) 14 1 6-25 [place] 941382-08-26 01:12:00 Test Item Value Reference Range Interpretation Comments Globulin (test code = Globulin) 4.0 2.7-4.2 [place] 941382-08-26 01:12:00 Test Item Value Reference Range Interpretation Comments A/G Ratio (test code = A/G Ratio) 0.7 1 0.7-1.6 [place] 941382-08-26 01:12:00 Test Item Value Reference Range Interpretation Comments eGFR (test code = eGFR) 138 [place] 783402-08-26 01:12:00 Test Item Value Reference Range Interpretation Comments WBC (test code = WBC) 11.7 3.7-10.4 [place] 783402-08-26 01:12:00 Test Item Value Reference Range Interpretation Comments RBC (test code = RBC) 3.92 4.20-5.40 [place] 783402-08-26 01:12:00 Test Item Value Reference Range Interpretation Comments Hgb (test code = Hgb) 11.3 12.0-16.0 [place] 783402-08-26 01:12:00 Test Item Value Reference Range Interpretation Comments Hct (test code = Hct) 33.9 36.0-48.0 [place] 783402-08-26 01:12:00 Test Item Value Reference Range Interpretation Comments MCV (test code = MCV) 86.6 80.0-98.0 [place] 783402-08-26 01:12:00 Test Item Value Reference Range Interpretation Comments MCH (test code = MCH) 28.7 pg 27.0-31.0 [place] 783402-08-26 01:12:00 Test Item Value Reference Range Interpretation Comments MCHC (test code = MCHC) 33.2 32.0-36.0 [place] 783402-08-26 01:12:00 Test Item Value Reference Range Interpretation Comments RDW (test code = RDW) 12.9 11.5-14.5 [place] 783402-08-26 01:12:00 Test Item Value Reference Range Interpretation Comments Platelet (test code = Platelet) 225 133-450 [place] 783402-08-26 01:12:00 Test Item Value Reference Range Interpretation Comments MPV (test code = MPV) 10.8 7.4-10.4 [place] [address]-08-26 01:12:00 Test Item Value Reference Range Interpretation Comments Segs (test code = Segs) 80.2 45.0-75.0 [place] [address]-08-26 01:12:00 Test Item Value Reference Range Interpretation Comments Lymphocytes (test code = Lymphocytes) 10.6 20.0-40.0 [place] [address]-08-26 01:12:00 Test Item Value Reference Range Interpretation Comments Monocytes (test code = Monocytes) 7.6 2.0-12.0 [place] 783402-08-26 01:12:00 Test Item Value Reference Range Interpretation Comments Eosinophils (test code = 1.1 See_Comment [A utomated message] The Eosinophils) system which ge nerated this result tra nsmitted reference range : <=4.0. The reference r socorro was not used to int erpret this result as normal/abnormal . [place] 783402-08-26 01:12:00 Test Item Value Reference Range Interpretation Comments Basophils (test code = 0.5 See_Comment [Aut omated message] The Basophils) system which ge nerated this result tra nsmitted reference range : <=1.0. The reference r socorro was not used to int erpret this result as normal/abnormal . [place] 783402-08-26 01:12:00 Test Item Value Reference Range Interpretation Comments Neutrophils # (test code = Neutrophils 9.4 1.5-8.1 #) [place] 783402-08-26 01:12:00 Test Item Value Reference Range Interpretation Comments Lymphocytes # (test code = Lymphocytes 1.2 1.0-5.5 #) [place] [address]-08-26 01:12:00 Test Item Value Reference Range Interpretation Comments Monocytes # (test code 0.9 See_Comment [Aut omated message] The = Monocytes #) system which generated this result tra nsmitted reference range : <=0.8. The reference r socorro was not used to int erpret this result as normal/abnormal . [place] 783402-08-26 01:12:00 Test Item Value Reference Range Interpretation Comments Eosinophils # (test code 0.1 See_Comment [A utomated message] The = Eosinophils #) system whic h generated this result tra nsmitted reference range : <=0.5. The reference r socorro was not used to int erpret this result as normal/abnormal . [place] [address]-08-26 01:12:00 Test Item Value Reference Range Interpretation Comments Basophils # (test code 0.1 See_Comment [Aut omated message] The = Basophils #) system which generated this result tra nsmitted reference range : <=0.2. The reference r socorro was not used to int erpret this result as normal/abnormal . [place] 941382-08-26 01:12:00 Test Item Value Reference Range Interpretation Comments Glucose Lvl (test code = Glucose Lvl) 82 70-99 [place] [address]-08-26 01:12:00 Test Item Value Reference Range Interpretation Comments BUN (test code = BUN) 7 7-22 [place] 941382-08-26 01:12:00 Test Item Value Reference Range Interpretation Comments Creatinine Lvl (test code = Creatinine 0.51 0.50-1.40 Lvl) [place] 941382-08-26 01:12:00 Test Item Value Reference Range Interpretation Comments Sodium Lvl (test code = Sodium Lvl) 138 135-145 [place] 941382-08-26 01:12:00 Test Item Value Reference Range Interpretation Comments Potassium Lvl (test code = Potassium 4.1 3.5-5.1 Lvl) [place] 941382-08-26 01:12:00 Test Item Value Reference Range Interpretation Comments Chloride Lvl (test code = Chloride Lvl) 108 95-109 [place] 941382-08-26 01:12:00 Test Item Value Reference Range Interpretation Comments CO2 (test code = CO2) 20 24-32 [place] [address]-08-26 01:12:00 Test Item Value Reference Range Interpretation Comments Calcium Lvl (test code = Calcium Lvl) 9.2 8.5-10.5 [place] 941382-08-26 01:12:00 Test Item Value Reference Range Interpretation Comments Total Protein (test code = Total 6.8 6.4-8.4 Protein) [place] 941382-08-26 01:12:00 Test Item Value Reference Range Interpretation Comments Albumin Lvl (test code = Albumin Lvl) 2.8 3.5-5.0 [place] [address]-08-26 01:12:00 Test Item Value Reference Range Interpretation Comments ALT (test code = ALT) 14 See_Comment [Auto mated message] The system which ge nerated this result transmit ross reference range : <=65. The reference range was not used to interpr et this result as corrine l/abnormal. [place] 941382-08-26 01:12:00 Test Item Value Reference Range Interpretation Comments AST (test code = AST) 21 See_Comment [Auto mated message] The system which ge nerated this result transmit ross reference range : <=37. The reference range was not used to interpr et this result as corrine l/abnormal. [place] 941382-08-26 01:12:00 Test Item Value Reference Range Interpretation Comments Alk Phos (test code = Alk Phos) 140 39-136 [place] 941382-08-26 01:12:00 Test Item Value Reference Range Interpretation Comments Bili Total (test code = Bili Total) 0.7 0.2-1.3 [facility] [id number] 01:12:00 Test Item Value Reference Range Interpretation Comments AGAP (test code = AGAP) 14.1 10.0-20.0 [facility] [id number] 01:12:00 Test Item Value Reference Range Interpretation Comments B/C Ratio (test code = B/C Ratio) 14 1 6-25 [place] [address]-08-26 01:12:00 Test Item Value Reference Range Interpretation Comments Globulin (test code = Globulin) 4.0 2.7-4.2 [facility] [id number] 01:12:00 Test Item Value Reference Range Interpretation Comments A/G Ratio (test code = A/G Ratio) 0.7 1 0.7-1.6 [facility]2022-08-26 01:12:00 Test Item Value Reference Range Interpretation Comments eGFR (test code = eGFR) 138 [place] 783402-08-26 01:12:00 Test Item Value Reference Range Interpretation Comments WBC (test code = WBC) 11.7 3.7-10.4 [place] [address]-08-26 01:12:00 Test Item Value Reference Range Interpretation Comments RBC (test code = RBC) 3.92 4.20-5.40 [place] [address]-08-26 01:12:00 Test Item Value Reference Range Interpretation Comments Hgb (test code = Hgb) 11.3 12.0-16.0 [place] [address]-08-26 01:12:00 Test Item Value Reference Range Interpretation Comments Hct (test code = Hct) 33.9 36.0-48.0 [place] [address]-08-26 01:12:00 Test Item Value Reference Range Interpretation Comments MCV (test code = MCV) 86.6 80.0-98.0 [place] [address]-08-26 01:12:00 Test Item Value Reference Range Interpretation Comments MCH (test code = MCH) 28.7 pg 27.0-31.0 [place] [address]-08-26 01:12:00 Test Item Value Reference Range Interpretation Comments MCHC (test code = MCHC) 33.2 32.0-36.0 [place] [address]-08-26 01:12:00 Test Item Value Reference Range Interpretation Comments RDW (test code = RDW) 12.9 11.5-14.5 [place] [address]-08-26 01:12:00 Test Item Value Reference Range Interpretation Comments Platelet (test code = Platelet) 225 133-450 [place] 783402-08-26 01:12:00 Test Item Value Reference Range Interpretation Comments MPV (test code = MPV) 10.8 7.4-10.4 [place] [address]-08-26 01:12:00 Test Item Value Reference Range Interpretation Comments Segs (test code = Segs) 80.2 45.0-75.0 [place] 783402-08-26 01:12:00 Test Item Value Reference Range Interpretation Comments Lymphocytes (test code = Lymphocytes) 10.6 20.0-40.0 [place] 783402-08-26 01:12:00 Test Item Value Reference Range Interpretation Comments Monocytes (test code = Monocytes) 7.6 2.0-12.0 [place] 783402-08-26 01:12:00 Test Item Value Reference Range Interpretation Comments Eosinophils (test code = 1.1 See_Comment [A utomated message] The Eosinophils) system which ge nerated this result tra nsmitted reference range : <=4.0. The reference r socorro was not used to int erpret this result as normal/abnormal . [place] 783402-08-26 01:12:00 Test Item Value Reference Range Interpretation Comments Basophils (test code = 0.5 See_Comment [Aut omated message] The Basophils) system which ge nerated this result tra nsmitted reference range : <=1.0. The reference r socorro was not used to int erpret this result as normal/abnormal . [facility]oilbouSJYTCOCGXU5861-70-90 01:12:00 Test Item Value Reference Range Interpretation Comments Neutrophils # (test code = Neutrophils 9.4 1.5-8.1 #) [facility] HospitalGzsvcwgOUWOCQJVWO1607-16-72 01:12:00 Test Item Value Reference Range Interpretation Comments Lymphocytes # (test code = Lymphocytes 1.2 1.0-5.5 #) [place] 783402-08-26 01:12:00 Test Item Value Reference Range Interpretation Comments Monocytes # (test code 0.9 See_Comment [Aut omated message] The = Monocytes #) system which generated this result tra nsmitted reference range : <=0.8. The reference r socorro was not used to int erpret this result as normal/abnormal . [facility] HospitalYhksdoiCUBJLOEVBT3140-60-15 01:12:00 Test Item Value Reference Range Interpretation Comments Eosinophils # (test code 0.1 See_Comment [A utomated message] The = Eosinophils #) system whic h generated this result tra nsmitted reference range : <=0.5. The reference r socorro was not used to int erpret this result as normal/abnormal . [place] [address]-08-26 01:12:00 Test Item Value Reference Range Interpretation Comments Basophils # (test code 0.1 See_Comment [Aut omated message] The = Basophils #) system which generated this result tra nsmitted reference range : <=0.2. The reference r socorro was not used to int erpret this result as normal/abnormal . [facility] HospitalAkwxzscYLGGZXCBDH3028-07-78 11:06:00 Test Item Value Reference Range Interpretation Comments WBC (test code = WBC) 9.2 3.7-10.4 [facility] HospitalBcxuiucCZHFBNTJGB5438-17-81 11:06:00 Test Item Value Reference Range Interpretation Comments RBC (test code = RBC) 3.47 4.20-5.40 [place] 783402-08-13 11:06:00 Test Item Value Reference Range Interpretation Comments Hgb (test code = Hgb) 10.6 12.0-16.0 [place] 783402-08-13 11:06:00 Test Item Value Reference Range Interpretation Comments Hct (test code = Hct) 30.4 36.0-48.0 [place] 783402-08-13 11:06:00 Test Item Value Reference Range Interpretation Comments MCV (test code = MCV) 87.6 80.0-98.0 [place] 783402-08-13 11:06:00 Test Item Value Reference Range Interpretation Comments MCH (test code = MCH) 30.5 pg 27.0-31.0 [facility] HospitalTofnqhtKNWNSXMJQX5504-97-71 11:06:00 Test Item Value Reference Range Interpretation Comments MCHC (test code = MCHC) 34.9 32.0-36.0 [facility] HospitalUxtjfarAWSZYPVLSC1302-74-33 11:06:00 Test Item Value Reference Range Interpretation Comments RDW (test code = RDW) 13.0 11.5-14.5 [place] [address]-08-13 11:06:00 Test Item Value Reference Range Interpretation Comments Platelet (test code = Platelet) 167 133-450 [place] 783402-08-13 11:06:00 Test Item Value Reference Range Interpretation Comments MPV (test code = MPV) 9.8 7.4-10.4 [place] 783402-08-13 11:06:00 Test Item Value Reference Range Interpretation Comments Segs (test code = Segs) 71.5 45.0-75.0 [place] 783402-08-13 11:06:00 Test Item Value Reference Range Interpretation Comments Lymphocytes (test code = Lymphocytes) 16.1 20.0-40.0 [place] 783402-08-13 11:06:00 Test Item Value Reference Range Interpretation Comments Monocytes (test code = Monocytes) 10.1 2.0-12.0 [place] 783402-08-13 11:06:00 Test Item Value Reference Range Interpretation Comments Eosinophils (test code = 1.6 See_Comment [A utomated message] The Eosinophils) system which ge nerated this result tra nsmitted reference range : <=4.0. The reference r socorro was not used to int erpret this result as normal/abnormal . [place] [address]-08-13 11:06:00 Test Item Value Reference Range Interpretation Comments Basophils (test code = 0.7 See_Comment [Aut omated message] The Basophils) system which ge nerated this result tra nsmitted reference range : <=1.0. The reference r socorro was not used to int erpret this result as normal/abnormal . [place] 783402-08-13 11:06:00 Test Item Value Reference Range Interpretation Comments Neutrophils # (test code = Neutrophils 6.6 1.5-8.1 #) [place] 783402-08-13 11:06:00 Test Item Value Reference Range Interpretation Comments Lymphocytes # (test code = Lymphocytes 1.5 1.0-5.5 #) [place] 783402-08-13 11:06:00 Test Item Value Reference Range Interpretation Comments Monocytes # (test code 0.9 See_Comment [Aut omated message] The = Monocytes #) system which generated this result tra nsmitted reference range : <=0.8. The reference r socorro was not used to int erpret this result as normal/abnormal . [facility] HospitalHkyxpmhXFRZULEIGZ6274-38-00 11:06:00 Test Item Value Reference Range Interpretation Comments Eosinophils # (test code 0.1 See_Comment [A utomated message] The = Eosinophils #) system whic h generated this result tra nsmitted reference range : <=0.5. The reference r socorro was not used to int erpret this result as normal/abnormal . [facility] HospitalNtdxswjUZEFSVELOY3173-81-78 11:06:00 Test Item Value Reference Range Interpretation Comments Basophils # (test code 0.1 See_Comment [Aut omated message] The = Basophils #) system which generated this result tra nsmitted reference range : <=0.2. The reference r socorro was not used to int erpret this result as normal/abnormal . [facility] HospitalNjusyuhRDMGUPGXME7611-27-52 11:06:00 Test Item Value Reference Range Interpretation Comments WBC (test code = WBC) 9.2 3.7-10.4 [facility] HospitalWcsnulvTHTVYWTETZ5971-88-57 11:06:00 Test Item Value Reference Range Interpretation Comments RBC (test code = RBC) 3.47 4.20-5.40 [facility] HospitalAxaenioAGEFHDBPPQ0989-13-10 11:06:00 Test Item Value Reference Range Interpretation Comments Hgb (test code = Hgb) 10.6 12.0-16.0 [facility] HospitalPdtnosmXHFYUJDVDS8869-20-60 11:06:00 Test Item Value Reference Range Interpretation Comments Hct (test code = Hct) 30.4 36.0-48.0 [facility] HospitalLmctrnvGXVPTXHJHJ5418-93-50 11:06:00 Test Item Value Reference Range Interpretation Comments MCV (test code = MCV) 87.6 80.0-98.0 [facility] HospitalTojjwyrUVCRULWHMI9117-22-11 11:06:00 Test Item Value Reference Range Interpretation Comments MCH (test code = MCH) 30.5 pg 27.0-31.0 [facility] HospitalUcakodvXMGKTHUWCI7631-08-24 11:06:00 Test Item Value Reference Range Interpretation Comments MCHC (test code = MCHC) 34.9 32.0-36.0 [facility] HospitalYvkjkybQJBOYAKXEJ0786-92-60 11:06:00 Test Item Value Reference Range Interpretation Comments RDW (test code = RDW) 13.0 11.5-14.5 [facility] HospitalNrlotdvXQHORKBHRH9048-12-89 11:06:00 Test Item Value Reference Range Interpretation Comments Platelet (test code = Platelet) 167 133-450 [facility] HospitalGgwctvwAPDXAAKCLL2932-92-07 11:06:00 Test Item Value Reference Range Interpretation Comments MPV (test code = MPV) 9.8 7.4-10.4 [place] 783402-08-13 11:06:00 Test Item Value Reference Range Interpretation Comments Segs (test code = Segs) 71.5 45.0-75.0 [place] 783402-08-13 11:06:00 Test Item Value Reference Range Interpretation Comments Lymphocytes (test code = Lymphocytes) 16.1 20.0-40.0 [place] 783402-08-13 11:06:00 Test Item Value Reference Range Interpretation Comments Monocytes (test code = Monocytes) 10.1 2.0-12.0 [place] [address]-08-13 11:06:00 Test Item Value Reference Range Interpretation Comments Eosinophils (test code = 1.6 See_Comment [A utomated message] The Eosinophils) system which ge nerated this result tra nsmitted reference range : <=4.0. The reference r socorro was not used to int erpret this result as normal/abnormal . [place] 783402-08-13 11:06:00 Test Item Value Reference Range Interpretation Comments Basophils (test code = 0.7 See_Comment [Aut omated message] The Basophils) system which ge nerated this result tra nsmitted reference range : <=1.0. The reference r socorro was not used to int erpret this result as normal/abnormal . [place] 783402-08-13 11:06:00 Test Item Value Reference Range Interpretation Comments Neutrophils # (test code = Neutrophils 6.6 1.5-8.1 #) [place] 783402-08-13 11:06:00 Test Item Value Reference Range Interpretation Comments Lymphocytes # (test code = Lymphocytes 1.5 1.0-5.5 #) [place] [address]-08-13 11:06:00 Test Item Value Reference Range Interpretation Comments Monocytes # (test code 0.9 See_Comment [Aut omated message] The = Monocytes #) system which generated this result tra nsmitted reference range : <=0.8. The reference r socorro was not used to int erpret this result as normal/abnormal . [place] [address]-08-13 11:06:00 Test Item Value Reference Range Interpretation Comments Eosinophils # (test code 0.1 See_Comment [A utomated message] The = Eosinophils #) system whic h generated this result tra nsmitted reference range : <=0.5. The reference r socorro was not used to int erpret this result as normal/abnormal . [facility] HospitalLeyuvazHENGUMVFHU8012-26-55 11:06:00 Test Item Value Reference Range Interpretation Comments Basophils # (test code 0.1 See_Comment [Aut omated message] The = Basophils #) system which generated this result tra nsmitted reference range : <=0.2. The reference r socorro was not used to int erpret this result as normal/abnormal . [facility] HospitalVfmtixkUIZEIOTYON7215-76-48 11:16:00 Test Item Value Reference Range Interpretation Comments Segs (test code = Segs) 82.3 45.0-75.0 [facility] HospitalXjmczofVCAXGPKIGK5642-67-86 11:16:00 Test Item Value Reference Range Interpretation Comments Lymphocytes (test code = Lymphocytes) 10.8 20.0-40.0 [facility] HospitalYlgesnuRQQPNIFTET2098-73-71 11:16:00 Test Item Value Reference Range Interpretation Comments Monocytes (test code = Monocytes) 6.0 2.0-12.0 [facility] HospitalUpndiiqONNRRTOERC6484-93-02 11:16:00 Test Item Value Reference Range Interpretation Comments Eosinophils (test code = 0.5 See_Comment [A utomated message] The Eosinophils) system which ge nerated this result tra nsmitted reference range : <=4.0. The reference r socorro was not used to int erpret this result as normal/abnormal . [facility] HospitalVhxktysJOGPHMRUAY3286-51-49 11:16:00 Test Item Value Reference Range Interpretation Comments Basophils (test code = 0.4 See_Comment [Aut omated message] The Basophils) system which ge nerated this result tra nsmitted reference range : <=1.0. The reference r socorro was not used to int erpret this result as normal/abnormal . [facility] HospitalZcdazroAAYVLUEBNS7115-56-76 11:16:00 Test Item Value Reference Range Interpretation Comments Neutrophils # (test code = Neutrophils 9.2 1.5-8.1 #) [facility] HospitalPpvtmozALOHNXXQPA5969-84-10 11:16:00 Test Item Value Reference Range Interpretation Comments Lymphocytes # (test code = Lymphocytes 1.2 1.0-5.5 #) [facility] HospitalCjxbsqqUHKNANWSMN8138-12-66 11:16:00 Test Item Value Reference Range Interpretation Comments Monocytes # (test code 0.7 See_Comment [Aut omated message] The = Monocytes #) system which generated this result tra nsmitted reference range : <=0.8. The reference r socorro was not used to int erpret this result as normal/abnormal . [facility] HospitalTayaotjSMZUCYVWCX0943-81-97 11:16:00 Test Item Value Reference Range Interpretation Comments Eosinophils # (test code 0.1 See_Comment [A utomated message] The = Eosinophils #) system whic h generated this result tra nsmitted reference range : <=0.5. The reference r socorro was not used to int erpret this result as normal/abnormal . [facility] HospitalLbpneyvKRBDXVDWKC0302-28-05 11:16:00 Test Item Value Reference Range Interpretation Comments WBC (test code = WBC) 11.2 3.7-10.4 [facility] HospitalWjaswntURRWXWAMVJ7594-26-71 11:16:00 Test Item Value Reference Range Interpretation Comments RBC (test code = RBC) 3.26 4.20-5.40 [facility] HospitalAdfsjpsRDUGXJOFVO5737-25-85 11:16:00 Test Item Value Reference Range Interpretation Comments Hgb (test code = Hgb) 9.6 12.0-16.0 [facility] HospitalXepimgfNUTZDLEFPP6552-16-46 11:16:00 Test Item Value Reference Range Interpretation Comments Hct (test code = Hct) 28.4 36.0-48.0 [place] [id number] 11:16:00 Test Item Value Reference Range Interpretation Comments MCV (test code = MCV) 87.3 80.0-98.0 [place] [id number] 11:16:00 Test Item Value Reference Range Interpretation Comments MCH (test code = MCH) 29.6 pg 27.0-31.0 [id number] 11:16:00 Test Item Value Reference Range Interpretation Comments MCHC (test code = MCHC) 33.9 32.0-36.0 [id number] 11:16:00 Test Item Value Reference Range Interpretation Comments RDW (test code = RDW) 12.7 11.5-14.5 [place] [id number] 11:16:00 Test Item Value Reference Range Interpretation Comments Platelet (test code = Platelet) 171 133-450 [facility]HgnckvbUYNYTSLDSH1609-43-42 11:16:00 Test Item Value Reference Range Interpretation Comments MPV (test code = MPV) 10.3 7.4-10.4 [facility] HospitalYyuvxcvCSSKDMCSBH2323-76-76 11:16:00 Test Item Value Reference Range Interpretation Comments Segs (test code = Segs) 82.3 45.0-75.0 [facility] HospitalHmgotqcAJBQKKJSNQ4731-35-34 11:16:00 Test Item Value Reference Range Interpretation Comments Lymphocytes (test code = Lymphocytes) 10.8 20.0-40.0 [facility] HospitalPosxpwuECMBTXMMMX4882-88-63 11:16:00 Test Item Value Reference Range Interpretation Comments Monocytes (test code = Monocytes) 6.0 2.0-12.0 [facility] Hos[id number] 11:16:00 Test Item Value Reference Range Interpretation Comments Eosinophils (test code = 0.5 See_Comment [A utomated message] The Eosinophils) system which ge nerated this result tra nsmitted reference range : <=4.0. The reference r socorro was not used to int erpret this result as normal/abnormal . [facility] HospitalQwuhkqaEUPXDGQWLW6424-49-69 11:16:00 Test Item Value Reference Range Interpretation Comments Basophils (test code = 0.4 See_Comment [Aut omated message] The Basophils) system which ge nerated this result tra nsmitted reference range : <=1.0. The reference r socorro was not used to int erpret this result as normal/abnormal . [facility] HospitalNrdhmolGHSLPJTFKU9532-25-67 11:16:00 Test Item Value Reference Range Interpretation Comments Neutrophils # (test code = Neutrophils 9.2 1.5-8.1 #) [facility] HospitalEuiceucESCGPSYDUI6404-51-51 11:16:00 Test Item Value Reference Range Interpretation Comments Lymphocytes # (test code = Lymphocytes 1.2 1.0-5.5 #) [facility] HospitalTzpgmcgVRYBCYXOTW7264-83-53 11:16:00 Test Item Value Reference Range Interpretation Comments Monocytes # (test code 0.7 See_Comment [Aut omated message] The = Monocytes #) system which generated this result tra nsmitted reference range : <=0.8. The reference r socorro was not used to int erpret this result as normal/abnormal . [facility] HospitalPldlsqgSVHSVNNMDA0816-01-08 11:16:00 Test Item Value Reference Range Interpretation Comments Eosinophils # (test code 0.1 See_Comment [A utomated message] The = Eosinophils #) system whic h generated this result tra nsmitted reference range : <=0.5. The reference r socorro was not used to int erpret this result as normal/abnormal . [facility] HospitalNgnidfgQWWQMPMESP9388-60-80 11:16:00 Test Item Value Reference Range Interpretation Comments WBC (test code = WBC) 11.2 3.7-10.4 [facility] HospitalDvlcxonSNYBTUFZEO7163-15-61 11:16:00 Test Item Value Reference Range Interpretation Comments RBC (test code = RBC) 3.26 4.20-5.40 [facility] HospitalUghnkknXPKROKOODX6223-10-07 11:16:00 Test Item Value Reference Range Interpretation Comments Hgb (test code = Hgb) 9.6 12.0-16.0 [facility] HospitalQzjxgpmYQUPPYUAUN3527-56-69 11:16:00 Test Item Value Reference Range Interpretation Comments Hct (test code = Hct) 28.4 36.0-48.0 [facility] HospitalNlzynayRSWUXIUJZS5913-67-95 11:16:00 Test Item Value Reference Range Interpretation Comments MCV (test code = MCV) 87.3 80.0-98.0 [facility] HospitalOvhlglgIEJOUOCYCC9330-97-37 11:16:00 Test Item Value Reference Range Interpretation Comments MCH (test code = MCH) 29.6 pg 27.0-31.0 [facility] HospitalIlbpircZIASZZWFZZ3571-66-65 11:16:00 Test Item Value Reference Range Interpretation Comments MCHC (test code = MCHC) 33.9 32.0-36.0 [facility] HospitalDlybdpoNFKIISAUPL3912-48-22 11:16:00 Test Item Value Reference Range Interpretation Comments RDW (test code = RDW) 12.7 11.5-14.5 [facility] HospitalGmvjfdyFMUMRVCKDA1266-30-03 11:16:00 Test Item Value Reference Range Interpretation Comments Platelet (test code = Platelet) 171 133-450 [facility] HospitalQmbaycsWBEFLZJQRI8441-93-68 11:16:00 Test Item Value Reference Range Interpretation Comments MPV (test code = MPV) 10.3 7.4-10.4 [facility]2022-08-12 05:20:00 Test Item Value Reference Range Interpretation Comments UA Color (test code = Yellow *NA*(05/12/22 UA Color) 12:20 AM) [facility] AND [id number] 05:20:00 Test Item Value Reference Range Interpretation Comments UA Turbidity (test code = Clear (05/12/22 12:20 UA Turbidity) AM) [facility] AND [id number] 05:20:00 Test Item Value Reference Range Interpretation Comments UA Spec Grav (test >=1.030 *ABN*(05/12/22 code = UA Spec Grav) 12:20 AM) [facility] AND [id number] 05:20:00 Test Item Value Reference Range Interpretation Comments UA pH (test code = UA pH) 6.0 1 5.0-8.0 [facility] AND [id number] 05:20:00 Test Item Value Reference Range Interpretation Comments UA Protein (test code Negative (05/12/22 12:20 = UA Protein) AM) [facility] AND [id number] 05:20:00 Test Item Value Reference Range Interpretation Comments UA Glucose (test code Negative (05/12/22 12:20 = UA Glucose) AM) [facility] AND [id number] 05:20:00 Test Item Value Reference Range Interpretation Comments UA Ketones (test code = UA >=80 mg/dL Ketones) [facility] AND [id number] 05:20:00 Test Item Value Reference Range Interpretation Comments UA Bili (test code = Negative *NA*(05/12/22 UA Bili) 12:20 AM) [facility] AND [id number] 05:20:00 Test Item Value Reference Range Interpretation Comments UA Blood (test code = Negative (05/12/22 12:20 UA Blood) AM) [facility] AND [id number] 05:20:00 Test Item Value Reference Range Interpretation Comments UA Urobilinogen (test code = UA 0.2 0.1-1.0 Urobilinogen) [facility] AND [id number] 05:20:00 Test Item Value Reference Range Interpretation Comments UA Nitrite (test code Negative (05/12/22 12:20 = UA Nitrite) AM) [facility] [id number] 05:20:00 Test Item Value Reference Range Interpretation Comments UA Leuk Est (test Negative (05/12/22 12:20 code = UA Leuk Est) AM) [facility] [id number] 05:20:00 Test Item Value Reference Range Interpretation Comments UA Sq Epi (test code Occasional *NA*(05/12/22 = UA Sq Epi) 12:20 AM) [facility] [id number] 05:20:00 Test Item Value Reference Range Interpretation Comments UA WBC (test code = 1 See_Comment [Automa ross message] The UA WBC) system which ge nerated this result transmit ross reference range : <=5. The reference range was not used to interpr et this result as corrine l/abnormal. [facility] [id number] 05:20:00 Test Item Value Reference Range Interpretation Comments UA RBC (test code = no gt See_Comment [Automa ross message] The UA RBC) system which ge nerated this result transmit ross reference range : <=2. The reference range was not used to interpr et this result as corrine l/abnormal. [facility] [id number] 05:20:00 Test Item Value Reference Range Interpretation Comments UA Mucus (test code = UA Mucus) Few /LPF [facility] [id number] 05:20:00 Test Item Value Reference Range Interpretation Comments UA Color (test code = Yellow *NA*(05/12/22 UA Color) 12:20 AM) [facility] [id number] 05:20:00 Test Item Value Reference Range Interpretation Comments UA Turbidity (test code = Clear (05/12/22 12:20 UA Turbidity) AM) [facility] [id number] 05:20:00 Test Item Value Reference Range Interpretation Comments UA Spec Grav (test >=1.030 *ABN*(05/12/22 code = UA Spec Grav) 12:20 AM) [facility] [id number] 05:20:00 Test Item Value Reference Range Interpretation Comments UA pH (test code = UA pH) 6.0 1 5.0-8.0 [facility] [id number] 05:20:00 Test Item Value Reference Range Interpretation Comments UA Protein (test code Negative (05/12/22 12:20 = UA Protein) AM) [facility] AND [id number] 05:20:00 Test Item Value Reference Range Interpretation Comments UA Glucose (test code Negative (05/12/22 12:20 = UA Glucose) AM) [facility] AND [id number] 05:20:00 Test Item Value Reference Range Interpretation Comments UA Ketones (test code = UA >=80 mg/dL Ketones) [facility] AND [id number] 05:20:00 Test Item Value Reference Range Interpretation Comments UA Bili (test code = Negative *NA*(05/12/22 UA Bili) 12:20 AM) [facility] AND [id number] 05:20:00 Test Item Value Reference Range Interpretation Comments UA Blood (test code = Negative (05/12/22 12:20 UA Blood) AM) [facility] AND [id number] 05:20:00 Test Item Value Reference Range Interpretation Comments UA Urobilinogen (test code = UA 0.2 0.1-1.0 Urobilinogen) [facility] AND [id number] 05:20:00 Test Item Value Reference Range Interpretation Comments UA Nitrite (test code Negative (05/12/22 12:20 = UA Nitrite) AM) [facility] AND [id number] 05:20:00 Test Item Value Reference Range Interpretation Comments UA Leuk Est (test Negative (05/12/22 12:20 code = UA Leuk Est) AM) [facility] AND [id number] 05:20:00 Test Item Value Reference Range Interpretation Comments UA Sq Epi (test code Occasional *NA*(05/12/22 = UA Sq Epi) 12:20 AM) [facility] AND [id number] 05:20:00 Test Item Value Reference Range Interpretation Comments UA WBC (test code = 1 See_Comment [Automa ross message] The UA WBC) system which ge nerated this result transmit ross reference range : <=5. The reference range was not used to interpr et this result as corrine l/abnormal. [facility] AND [id number] 05:20:00 Test Item Value Reference Range Interpretation Comments UA RBC (test code = no gt See_Comment [Automa ross message] The UA RBC) system which ge nerated this result transmit ross reference range : <=2. The reference range was not used to interpr et this result as corrine l/abnormal. [facility] [id number] 05:20:00 Test Item Value Reference Range Interpretation Comments UA Mucus (test code = UA Mucus) Few /LPF [facility] BANK [id number] 04:01:00 Test Item Value Reference Range Interpretation Comments ABO/Rh (test code = ABO/Rh) O POS [facility] [id number] 04:01:00 Test Item Value Reference Range Interpretation Comments Antibody Scrn (test Negative (05/11/22 code = Antibody Scrn) 11:01 PM) [facility] [id number] 04:01:00 Test Item Value Reference Range Interpretation Comments ABO/Rh (test code = ABO/Rh) O POS [facility] [id number] 04:01:00 Test Item Value Reference Range Interpretation Comments Antibody Scrn (test Negative (05/11/22 code = Antibody Scrn) 11:01 PM) [id number] 02:17:00 Test Item Value Reference Range Interpretation Comments Coronavirus (COVID-19) Not Detected (05/11/22 LUCY (test code = 9:17 PM) Coronavirus (COVID-19) LUCY) [id number] 02:17:00 Test Item Value Reference Range Interpretation Comments Coronavirus (COVID-19) Not Detected (05/11/22 LUCY (test code = 9:17 PM) Coronavirus (COVID-19) LUYC) [facility] [id number] 21:55:00 Test Item Value Reference Range Interpretation Comments POCT PREG (test code = 1605) Negative On board controls acceptable with C Yes Line (test code = 3574) POCT PREG LOT # (test code = 3575) POCT PREG TEST DATE (test code = 3576) [facility] [id number] 21:55:00 Test Item Value Reference Range Interpretation Comments POCT PREG (test code = 1605) Negative On board controls acceptable with C Yes Line (test code = 3574) POCT PREG LOT # (test code = 3575) POCT PREG TEST DATE (test code = 3576) [facility]
[2023-02-18] MEDS ORDERED: ONDANSETRON 4 MG/2 ML VIAL ONE (00:19)
[2023-02-18] MEDS ORDERED: NA CHLORIDE 0.9% 1,000 ML ONE ×2 (00:20→01:17)
[2023-02-18 00:24] LABS: Absolute Lymphocytes (CBC) 1.2 K/uL (0.7-4.9); Hematocrit 39.6 % (36.0-45.0); Lymphocytes % 8.2 % (15.3-44.8); MCV 84.7 fL (80-100); MPV 9.9 fL (7.6-11.3); RBC Red Blood Cell Count 4.68 M/uL (3.86-4.86)
[2023-02-18 00:27] LABS: Specific Gravity > 1.030 (1.005-1.030)
[2023-02-18 00:41] LABS: Albumin 4.4 g/dL (3.4-5.0); Bilirubin Total 1.6 mg/dL (0.2-1.0); Potassium 3.7 mEq/L (3.5-5.1); Protein, Total 7.9 g/dL (6.4-8.2)
--- NOTE | 2023-02-18 01:57 | ER ---
Nurse's Notes [facility] Name: Ramírez Escalona Age: 22 yrs Sex: Female : 2000 Arrival Date: 02/17/2023 Time: 23:22 Bed 18 Private MD: Diagnosis: Vomiting, unspecified Presentation: 02/17 23:49 Chief complaint: Patient states: I cant keep any food down. I haven't had anything kd3 solid to eat for 24 hours. I have an IUD so i don't think i am . I do have a stomach ache. Coronavirus screen: Vaccine status: Patient reports being unvaccinated. Ebola Screen: No symptoms or risks identified at this time. Initial Sepsis Screen: Does the patient meet any 2 criteria? No. Patient's initial sepsis screen is negative. Does the patient have a suspected source of infection? No. Patient's initial sepsis screen is negative. Risk Assessment: Do you want to hurt yourself or someone else? Patient reports no desire to harm self or others. Onset of symptoms was February 17, 2023. 23:49 Method Of Arrival: Ambulatory kd3 23:49 Acuity: GIOVANNY 3 kd3 Triage Assessment: 23:52 General: Appears uncomfortable, Behavior is calm, cooperative. Pain: Complains of pain kd3 in abdomen. GI: Reports nausea, vomiting. 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 - Social history:: Smoking status: Reported history of juuling and/or vaping. Screenin/21 01:07 [facility] ED Fall Risk Assessment (Adult) History of falling in the last 3 months, sg5 including since admission No falls in past 3 months (0 pts). Abuse screen: Denies threats or abuse. Nutritional screening: No deficits noted. Tuberculosis screening: No symptoms or risk factors identified. Assessment: 01:07 General: Appears in no apparent distress. comfortable. Pain:. Pain: Complains of pain sg5 in abdomen. Neuro: Level of Consciousness is awake, alert, obeys commands, Oriented to person, place, time, situation, Appropriate for age. Cardiovascular: Capillary refill < 3 seconds. Respiratory: Airway is patent Respiratory effort is even, unlabored. GI: Abdomen is round non-distended, Reports nausea, vomiting. : No signs and/or symptoms were reported regarding the genitourinary system. EENT: No signs and/or symptoms were reported regarding the EENT system. Derm: No signs and/or symptoms reported regarding the dermatologic system. Musculoskeletal: No signs and/or symptoms reported regarding the musculoskeletal system. 01:54 Reassessment: Patient and/or family updated on plan of care and expected duration. Pain sg5 level reassessed. Patient is alert, oriented x 3, equal unlabored respirations, skin warm/dry/pink. Patient states symptoms have improved. Vital Signs: 02/17 23:49 BP 113 / 80; Pulse 83; Resp 19; Temp 97.6(O); Pulse Ox 100% on R/A; Weight 72.57 kg; kd3 Height 5 ft. 3 in. ; 02/18 01:07 BP 102 / 49; Pulse 89; Resp 16; Pulse Ox 99% on R/A; sg5 01:59 BP 99 / 73; Pulse 80; Resp 16; Pulse Ox 98% on R/A; sg5 02/17 23:49 Body Mass Index 28.34 (72.57 kg, 160.02 cm) kd3 ED Course: 02/17 23:25 Patient arrived in ED. jj6 23:27 Johnnie Couch MD is Attending Physician. bs3 23:44 Joyce Bowman, DAJUAN is Primary Nurse. sg5 23:52 Triage completed. kd3 23:52 Arm band placed on right wrist. kd3 02/18 00:06 Lipase Sent. bc6 00:06 Comprehensive Metabolic Panel Sent. bc6 00:06 CBC with Diff Sent. bc6 00:06 Test, Urine Sent. bc6 00:06 Inserted saline lock: 20 gauge in right antecubital area, using aseptic technique. bc6 01:07 Patient has correct armband on for positive identification. Call light in reach. Side sg5 rails up X 1. Adult w/ patient. Valuables Left with patient. 01:59 No provider procedures requiring assistance completed. IV discontinued. sg5 Administered Medications: 00:20 Drug: NS 0.9% IV 1000 ml Route: IV; Rate: 1000 ml; Site: right antecubital; sg5 01:12 Follow up: IV Status: Completed infusion sg5 00:20 Drug: Ondansetron IVP 8 mg Route: IVP; Site: right antecubital; sg5 01:12 Drug: NS 0.9% IV 1000 ml Route: IV; Rate: 1000 ml; Site: right antecubital; sg5 01:54 Follow up: IV Status: Completed infusion sg5 Medication: 01:07 VIS not applicable for this client. sg5 Outcome: 01:56 Discharge ordered by . bs3 01:59 Discharged to home with significant other. sg5 01:59 Condition: good 01:59 Discharge instructions given to patient, Instructed on discharge instructions, follow up and referral plans. 02:05 Patient left the ED. sg5 Signatures: Edith SamuelsjDemi Yousif, RN RN kd3 Johnnie Couch MD MD bs3 Asha Montiel6 Joyce Bowman RN RN sg5
--- NOTE | 2023-02-18 01:57 | EDPHYS ---
Physician Documentation [facility] Name: Ramírez Escalona Age: 22 yrs Sex: Female : 2000 Arrival Date: 02/17/2023 Time: 23:22 Bed 18 Private MD: ED Physician Johnnie Couch HPI: 02/17 23:39 This 22 yrs old Female presents to ER via Unassigned with complaints of bs3 Nausea/Vomiting. 23:39 22-year-old female history of a otherwise no significant past medical history bs3 presents with nausea and vomiting today she notes that she has had approximately 5 or 6 episodes of vomiting nonbloody nonbilious emesis she denies any fevers or chills she notes that she had some sharp abdominal pain when it first started but now that is improved denies any chance that she is she has not been able to tolerate any oral intake nothing makes her symptoms better or worse she has never had this before she denies any diarrhea. 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 - Social history:: Smoking status: Reported history of juuling and/or vaping. ROS: 23:39 Constitutional: Negative for fever, chills bs3 23:39 All other systems are negative. Exam: 23:39 Constitutional: This is a well developed, well nourished patient who is awake, alert, bs3 and in no acute distress. Head/Face: Normocephalic, atraumatic. Eyes: Pupils equal round and reactive to light, extra-ocular motions intact. Lids and lashes normal. ENT: mmm, no posterior phyarngeal erythema Chest/axilla: Normal chest wall appearance and motion. Nontender with no deformity. No lesions are appreciated. Cardiovascular: Regular rate and rhythm with a normal S1 and S2. symmetric pulses in upper extremities Respiratory: Lungs have equal breath sounds bilaterally, clear to auscultation, no respiratory distress Abdomen/GI: Soft, non-tender, no rebound or guarding MS/ Extremity: Pulses equal, no cyanosis. Neurovascular intact. Full, normal range of motion. Neuro: Awake and alert, GCS 15, oriented to person, place, time, and situation. Cranial nerves II-XII grossly intact. Motor strength 5/5 in all extremities. Sensory grossly intact. Psych: Awake, alert, with orientation to person, place and time. Behavior, mood, and affect are within normal limits. Vital Signs: 23:49 BP 113 / 80; Pulse 83; Resp 19; Temp 97.6(O); Pulse Ox 100% on R/A; Weight 72.57 kg; kd3 Height 5 ft. 3 in. ; 02/18 01:07 BP 102 / 49; Pulse 89; Resp 16; Pulse Ox 99% on R/A; sg5 01:59 BP 99 / 73; Pulse 80; Resp 16; Pulse Ox 98% on R/A; sg5 02/17 23:49 Body Mass Index 28.34 (72.57 kg, 160.02 cm) kd3 MDM: 02/17 23:27 Patient medically screened. bs3 23:39 Data reviewed: vital signs, nurses notes. bs3 02/18 01:10 ED course: Labs notable for slightly elevated bilirubin however no right upper quadrant bs3 pain patient feeling much better she tolerated oral intake she is still felt dehydrated and requested 1 additional fluid bolus will give bolus and discharged home. 01:56 ED course: pt reassesed, feeling much better, no additional vomiting here, abdominal bs3 soft, nt. 02/17 23:34 Order name: Test, Urine; Complete Time: 00:41 3 02/17 23:39 Order name: CBC with Diff; Complete Time: 00:41 3 02/17 23:39 Order name: Comprehensive Metabolic Panel; Complete Time: 01:07 bs3 02/17 23:39 Order name: Lipase; Complete Time: 01:07 bs3 Administered Medications: 00:20 Drug: NS 0.9% IV 1000 ml Route: IV; Rate: 1000 ml; Site: right antecubital; sg5 01:12 Follow up: IV Status: Completed infusion sg5 00:20 Drug: Ondansetron IVP 8 mg Route: IVP; Site: right antecubital; sg5 01:12 Drug: NS 0.9% IV 1000 ml Route: IV; Rate: 1000 ml; Site: right antecubital; sg5 01:54 Follow up: IV Status: Completed infusion sg5 Disposition Summary: 02/18/23 01:56 Discharge Ordered Location: Home bs3 Problem: new bs3 Symptoms: have improved bs3 Condition: Stable bs3 Diagnosis - Vomiting, unspecified bs3 Followup: bs3 - With: Private Physician - When: 5 - 6 days - Reason: Re-evaluation by your physician Discharge Instructions: - Discharge Summary Sheet bs3 - Nausea and Vomiting, Adult, Gaey-rn-Rseg bs3 Forms: - Medication Reconciliation Form bs3 - Thank You Letter bs3 - Antibiotic Education bs3 - Prescription Opioid Use bs3 Prescriptions: - ondansetron 8 mg Oral tablet,disintegrating - take 1 tablet by ORAL route every 8 hours; 16 tablet; Refills: 0, Product bs3 Selection Permitted Signatures: Dispatcher [employer] Demi Subramanian RN RN kd3 Johnnie Couch MD MD bs3 Joyce Bowman RN RN sg5
[2023-02-18 02:44] VITALS: TEMP 97.6
[2023-02-18 02:47] VITALS: BP 99/73; O2SAT 98
== END 2023-02-18 02:05 | disposition home or self-care (01) ==
LOC: ER 23:22
DX: R11.10 Vomiting, unspecified (principal); Z91.013 Allergy to seafood
CPT/HCPCS: 85025; 36415; 81025; 83690; 80053; J2405; J7030 ×2

== ENCOUNTER 2024-05-10 05:16 | Emergency (ER) | payer BC ==
[2024-05-10 05:58] LABS: Absolute Basophils 0.1 K/uL (0-0.5); Absolute Eosinophils 0.4 K/uL (0-0.5); Absolute Lymphocytes (CBC) 1.7 K/uL (0.7-4.9); Absolute Monocytes 0.5 K/uL (0.1-1.3); Absolute Neutrophil 4.1 K/uL (1.8-8.0); Basophils % 1.2 % (0-1.3); Eosinophils % 6.3 % (0-4.4); Hematocrit 43.1 % (36.0-45.0); Hemoglobin 14.3 g/dL (12.0-15.0); MCH 28.3 pg (27.0-35.0); MCHC 33.3 g/dL (32.0-36.0); MCV 85.2 fL (80-100); MPV 9.7 fL (7.6-11.3); Monocytes % 7.4 % (3.3-12.3); Neutrophils % 60.1 % (41.7-73.7); Nucleated Red Blood Cells % 0.1 % (0-0); Platelets 293 thou/uL (152-406); RBC Red Blood Cell Count 5.06 M/uL (3.86-4.86); Red Cell Distribution Width 13.7 % (12.1-15.2)
--- NOTE | 2024-05-10 06:31 | EDPHYS ---
Physician Documentation [facility] Name: Ramírez Escalona Age: 23 yrs Sex: Female : 2000 Arrival Date: 05/10/2024 Time: 05:16 Bed 7 Private MD: ED Physician Brenden Penn HPI: 05/10 05:43 This 23 yrs old Female presents to ER via Ambulatory with complaints of ec2 Vaginal Bleeding, Pelvic Pain, HEMATURIA, PATIENT C/O ABOUT IUD PLACEMENT. 05:43 Patient arrives today for the evaluation of vaginal bleeding. Patient has an IUD in ec2 place, had a place approximately 2 years ago and has not had a period since then. Patient is having vaginal bleeding ongoing for 3 days, reports continuous, denies anemia symptoms. Patient reports no blood thinners, no significant medical problems. Patient reports she is sexually active, also reports some dysuria.. 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 Flu vaccine is not up to date. - Infectious Disease History:: Denies. - Social history:: Smoking status: Reported history of juuling and/or vaping. Patient uses alcohol, occasionally. Patient/guardian denies using street drugs, IV drugs. ROS: 05:43 Constitutional: as per hpi ec2 Exam: 05:43 Constitutional: GEN: NAD Head: atraumatic Eyes: EOMI Ears: External ears are ec2 normal. CV: regular rate LUNGS: no respiratory distress ABD: non-distended SKIN: no evidence of rashes MSK: no evidence of trauma NEURO: moves all extremities equally Vital Signs: 05:37 BP 111 / 58; Pulse 85; Resp 17; Temp 98.2; Pulse Ox 99% ; Weight 81.65 kg; Height 5 ft. jj7 3 in. ; Pain 3/10; 07:02 BP 134 / 81; Pulse 81; Resp 18; Temp 98.1; Pulse Ox 99% on R/A; Pain 0/10; kd4 05:37 Body Mass Index 31.89 (81.65 kg, 160.02 cm) jj7 05:37 Pain Scale: Adult jj7 07:02 Pain Scale: Adult kd4 MDM: 05:23 Patient medically screened. ec2 05:43 Data reviewed: vital signs. ED course: Patient arrives today for evaluation of vaginal ec2 bleeding and dysuria. Examination remarkable for well-appearing nontoxic dividual's otherwise in no acute distress. Will obtain lab work, urine studies, test as well as ultrasound. Differential includes , abnormal uterine bleeding, dislodged IUD.. 06:30 ED course: CBC reassuring, no anemia, metabolic profile reassuring, testing ec2 negative. Ultrasound shows appropriately placed IUD. Will have the patient follow-up with gynecology for abnormal uterine bleeding.. 05/10 05:24 Order name: CBC with Diff; Complete Time: 06:30 ec2 05/10 05:24 Order name: BMP; Complete Time: 06:30 ec2 05/10 05:39 Order name: Test, Serum; Complete Time: 06:30 ec2 05/10 05:39 Order name: Transvaginal Study (probe) ec2 05/10 05:24 Order name: IV Saline Lock; Complete Time: 06:07 ec2 05/10 05:24 Order name: Labs collected and sent; Complete Time: 06:07 ec2 Administered Medications: No medications were administered Disposition Summary: 05/10/24 06:31 Discharge Ordered Notes: Location: Home ec2 Condition: Stable ec2 Diagnosis - Abnormal uterine and vaginal bleeding, unspecified ec2 Followup: ec2 - With: Private Physician - When: - Reason: Re-evaluation by your physician Discharge Instructions: - Discharge Summary Sheet ec2 - Dysfunctional Uterine Bleeding ec2 Forms: - Medication Reconciliation Form ec2 - Antibiotic Education ec2 - Prescription Opioid Use ec2 - Patient Portal Instructions ec2 - Leadership Thank You Letter ec2 Signatures: Dispatcher [employer] Linsey Mcmahan RN RN jj7 Brenden Penn MD MD ec2 Soren Justice RN RN kd4 Corrections: (The following items were deleted from the chart) 05:39 05:39 TEST, SERUM+SC.LAB.BRZ ordered. EDAL EDMS 05:59 05:24 Test, Urine+UC.LAB.BRZ ordered. EDMS EDMS
--- NOTE | 2024-05-10 06:31 | ER ---
Nurse's Notes [facility] Name: Ramírez Escalona Age: 23 yrs Sex: Female : 2000 Arrival Date: 05/10/2024 Time: 05:16 Bed 7 Private MD: Diagnosis: Abnormal uterine and vaginal bleeding, unspecified Presentation: 05/10 05:37 Chief complaint: Patient states: VAGINAL BLEEDING X3 DAYS. STATES SHE HASN'T HAD A jj7 NORMAL CONSTANT PERIOD SINCE SHE HAD HER IUD PLACED. ABD PAIN. Coronavirus screen: At this time, the client does not indicate any symptoms associated with coronavirus-19. Ebola Screen: No symptoms or risks identified at this time. Initial Sepsis Screen: Does the patient meet any 2 criteria? No. Patient's initial sepsis screen is negative. Does the patient have a suspected source of infection? No. Patient's initial sepsis screen is negative. Risk Assessment: Do you want to hurt yourself or someone else? Patient reports no desire to harm self or others. Onset of symptoms was May 07, 2024. 05:37 Method Of Arrival: Ambulatory [facility] 05:37 Acuity: GIOVANNY 3 jj7 Triage Assessment: 05:43 General: Appears in no apparent distress. comfortable, Behavior is calm, cooperative, jj7 appropriate for age. Pain: Complains of pain in abdomen. : Reports vaginal bleeding that is moderate flow. 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 Flu vaccine is not up to date. - Infectious Disease History:: Denies. - Social history:: Smoking status: Reported history of juuling and/or vaping. Patient uses alcohol, occasionally. Patient/guardian denies using street drugs, IV drugs. Screenin:03 [facility] ED Fall Risk Assessment (Adult) History of falling in the last 3 months, kd4 including since admission No falls in past 3 months (0 pts) Confusion or Disorientation No (0 pts) Intoxicated or Sedated No (0 pts) Impaired Gait No (0 pts) Mobility Assist Device Used No (0 pt) Altered Elimination No (0 pt) Score/Fall Risk Level 0 - 2 = Low Risk Oriented to surroundings, Maintained a safe environment. Abuse screen: Denies threats or abuse. Nutritional screening: No deficits noted. Tuberculosis screening: No symptoms or risk factors identified. Assessment: 07:04 : Urine is bloody. kd4 07:06 General: patient stable, d/c instruction given to patient, ok to d/c per MD labs and kd4 unremarkable.. 07:07 General: MD states to d/c urine, no urine needed anymore. ok to d/c per MD Penn.. kd4 Vital Signs: 05:37 BP 111 / 58; Pulse 85; Resp 17; Temp 98.2; Pulse Ox 99% ; Weight 81.65 kg; Height 5 ft. jj7 3 in. ; Pain 3/10; 07:02 BP 134 / 81; Pulse 81; Resp 18; Temp 98.1; Pulse Ox 99% on R/A; Pain 0/10; kd4 05:37 Body Mass Index 31.89 (81.65 kg, 160.02 cm) jj7 05:37 Pain Scale: Adult j7 07:02 Pain Scale: Adult kd4 ED Course: 05:18 Patient arrived in ED. jj6 05:22 Brenden Penn MD is Attending Physician. ec2 05:43 Triage completed. jj7 05:43 Arm band placed on right wrist. Patient placed in an exam room, on a stretcher. jj7 05:46 Initial lab(s) drawn, by nc, sent to lab. Inserted saline lock: 20 gauge in right kd4 antecubital area, using aseptic technique. Blood collected. 06:00 Patient has correct armband on for positive identification. Bed in low position. Side kd4 rails up X 1. Provided Education on: d/c instruction. 06:16 Transvaginal Study (probe) In Process Unspecified. EDMS 07:03 No provider procedures requiring assistance completed. IV discontinued. kd4 Administered Medications: No medications were administered Medication: 07:05 VIS not applicable for this client. kd4 Outcome: 06:31 Discharge ordered by . ec2 07:04 Discharged to home ambulatory, kd4 07:04 Condition: good 07:04 Discharge instructions given to patient, 07:07 Patient left the ED. kd4 Signatures: Dispatcher [employer] Edith Barrj6 Linsey Naylor RN RN jj7 Brenden Penn MD MD ec2 Soren Justice RN RN kd4
[2024-05-10 07:31] VITALS: O2SAT 99
[2024-05-10 07:33] VITALS: BP 134/81; TEMP 98.1
--- NOTE | 2024-05-11 23:04 | RAD REPORT ---
EXAM DESCRIPTION: US - Transvaginal Study Probe - 05/10/2024 6:14 am CLINICAL HISTORY: The patient is 23 years old and is Female; abd pain, iud, new vaginal bleeding TECHNIQUE: Real-time transvaginal pelvic ultrasound with image documentation. Transvaginal imaging was used for better evaluation of the endometrium and adnexa. Real-time duplex ultrasound scan of the arterial and venous flow of the pelvis with color Doppler flow and spectral waveform analysis. COMPARISON: No relevant prior studies available. FINDINGS: Uterus/cervix: IUD in place. Uterus is 7.7 x 4.9 x 3.5 cm. Endometrial stripe 4 mm in thickness. No myometrial mass. Right ovary: Right ovary 3.0 x 1.7 x 3.2 cm. Right ovarian follicles, largest measuring 8 mm. No torsion. Left ovary: Left ovary not visualized. Free fluid: No free fluid. Bladder: Empty bladder which cannot be evaluated with this probe. IMPRESSION: 1. IUD in place. 2. Left ovary not visualized. Electronically signed by: Joyce Molina MD 05/10/2024 06:26 AM CDT ND Due to temporary technical issues with the PACS/Fluency reporting system, reports are being signed by the in house radiologists without review as a courtesy to insure prompt reporting. The interpreting radiologist is fully responsible for the content of the report.
== END 2024-05-10 07:07 | disposition home or self-care (01) ==
LOC: ER 05:16
DX: N93.9 Abnormal uterine and vaginal bleeding, unspecified (principal); R30.0 Dysuria; Z91.013 Allergy to seafood
CPT/HCPCS: 36415; 76830; 80048; 84703; 85025; 99283

== ENCOUNTER 2025-02-12 09:53 | Emergency (ER) | payer BC ==
--- OUTSIDE RECORDS SUMMARY | 2025-02-12 09:57 | XMS REPORT | Continuity of Care Document ---
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 Dealer Name Role Phone Unknown, Physician Primary Care Physician JACOB Urban Attending Clinician Un available Jesika Alarcon Attending Clinician Unavailabl e RADIOLOGY Attending Clinician Unavailable Radiology Attending Clinician Unavailable Doctor Unassigned, [place] Attending Clinician U NADEGE Guallpa Attending Clinician Unavailable TOÑITO MOTLEY Attending Clinician Unavailable JOCELYNE BEGUM Attending Clinician Unavail able Dagoberto Olvera CGC Attending Clinician [phone] Lexy Paulson RN Attending Clinician Unavailable Counselor, [employer] [facility] Attending Clinician Unav SHERRI Bettencourt Attending Clinician Unavailable MELECIO DEE-BRI Attending Clinician Sirena NATTY Logan Attending Clinician Unavailable Only, Ang Db Test Attending Clinician UnavailNatty Goss Attending Clinician [phone] Pob, [facility] Main Attending Clinician UnavailSherri Barton MD Attending Clinician [phone] VALERIA PEREZ Attending Clinician Unavailable EDWIGE DUNCAN Attending Clinician Unavailable Omaghombonifacio DENISE Cecilia Attending Clinician [phone] [facility], [facility] Attending Clinician Unav ailable Edwige Berger Attending Clinician [phone] Manuel George MD Attending Clinician [phone] MANUEL GEORGE Attending Clinician UnavailJACOB Sylvester Admitting Clinician Un available Josefina Knowles Admitting Clinician Unavailable JOSEFINA KNOWLES Admitting Clinician Unavailab TOÑITO Kaufman Admitting Clinician Unavailable MANUEL GEORGE Admitting Clinician Unavailtaylor maki Payers Payer Name Policy Type Policy Number Effective Date Expirati on Date Source [facility] [id number] 2019 00:00:00 [facility] [id number] 1 00:00:00 [facility] [id number] 2014 00:00:00 Problems Condition Name Condition Details Condition Category Status Onset Date Resolution Date Last Treatment Date Treating Clinician Comments Source , 06/16/22, ELECTIVE IOL (UNVACCINA T , 06/16/22, ELECTIVE IOL (UNVACCINA T Active 05/31/2022 [facility] Diagnosis Active 05-31 00:00: 00 2022-06-14 13:56:00 Jesús Talbot OB PROBLEM OB PROBLEM Active 05/25/2022 [facility] Diagnosis Active 05-25 00:00: 00 2022-05-25 22:30:00 Jesús Talbot PYELONEPHR ITIS PYELONEPHR ITIS Active 05/11/2022 [facility] Diagnosis Active 8- 00:00: 00 2022-05-13 12:33:00 Jesús Talbot CONTRACTIO NS CONTRACTIO NS Active 05/11/2022 [facility] Diagnosis Active 8- 00:00: 00 2022-05-12 09:22:00 Jesús Talbot PAIN PAIN Active 03/23/2022 [facility] Diagnosis Active 6- 00:00: 00 2022-03-23 21:28:00 Jesús Talbot Abnormal chromosoma l and genetic finding on screening mother Abnormal chromosoma l and genetic finding on screening mother Disease Active 3-10 00:00: 00 [facility] 6 WKS PREGO/VOMI TING/ABD PAIN 6 WKS PREGO/VOMI TING/ABD PAIN Active 10/12/2021 Caden Talbot Diagnosis Active 1-12 00:00: 00 2021-10-14 19:28:00 Jesús Talbot Patient currently (finding) Patient currently (finding) Active 09/09/2021 Problem 06/19/2022 [facility] Problem Active 2020-10 2- 00:00: 00 2022-06-19 22:56:53 Jesús Talbot FALL FALL Active 08/14/2021 [facility] Diagnosis Active 2020-10 1- 00:00: 00 2021-08-15 13:14:00 Jesús Talbot No known active problems No known active problems [facility] Depressive disorder (disorder) Depressive disorder (disorder) Active Problem 06/19/2022 [facility] Problem Active 2022-06-19 22:56:53 Jesús Talbot Chlamydial infection (disorder) Chlamydial infection (disorder) Resolved 10/01/2021 Problem 06/19/2022 [facility] Problem Resolve d 1- 00:00: 00 2022-06-19 22:56:53 2022-06-19 22:56:53 Jesús Talbot History of Past Illness Condition Name Condition Details Condition Category Status Onset Date Resolution Date Last Treatment Date Treating Clinician Comments Source state, incidental state, incidental 05/28/2022 [facility] Problem 8- 04:06: 00 2022-05-28 00:11:21 2022-05-28 00:11:21 Jesús Talbot Frequency of micturitio n Frequency of micturitio n 05/26/2022 05/28/2022 [facility] Problem 8- 04:06: 00 2022-05-28 00:11:21 2022-05-28 00:11:21 Jesús Talbot Allergies, Adverse Reactions, Alerts Allergy Name Allergy Type Status Severity Reaction(s) Onset Date Inactive Date Treating Clinician Comments Source No Known Allergie s DA Active U 2023-10 00:00: 00 [facility] Shellfis h-Derive d Products Allergy to substanc e Active Swelling 12-09 00:00: 00 [facility] shellfis h shellfis h Active Jesús Talbot No Known Medicati on Allergie s No Known Medicati on Allergie s Active Jesús Talbot NO KNOWN ALLERGIE S Drug Class Active [facility] Social History Social Habit Start Date Stop Date Quantity Comments Source ASSERTION 2021-09-23 00:00:[address] [facility] History SDOH Alcohol Frequency [facility] History SDOH Alcohol Std Drinks [facility] History SDOH Alcohol Binge [facility] History of tobacco use Passive smoker [facility] Gender identity [facility] Sexual orientation [facility] Exposure to SARS-CoV-2 (event) Not sure [facility] Social History 2022-03-24 00:37:39 2022-03-24 00:37:39 Caden Talbot Tobacco use and exposure 2021-12-09 00:00:00 2021-12-09 00:00:00 Former smokeless tobacco user [facility] Alcohol intake 2021-12-09 00:00:00 2021-12-09 00:00:00 Ex-drinker (finding) [facility] Alcohol Comment 2021-09-06 00:00:00 2021-09-06 00:00:00 Socially [facility] History of Social function 2021-09-06 00:00:00 2021-09-06 00:00:00 [facility] Sex Assigned At 2000 00:00:00 2000 00:00:[address] [facility] Smoking Status Start Date Stop Date Source Tobacco smoking consumption unknown [facility] Never smoked tobacco [facility] Social History 2021-08-14 10:11:52 Giana Santana Medications Ordered Medication Name Filled Medication Name Start Date Stop Date Current Medication? Ordering Clinician Indication Dosage Frequency Signature (SIG) Comments Components Source ferrous sulfate 325 mg oral enteric coated tablet 06-17 16:55: 00 Yes 325 mg = 1 tab, PO, Daily, # 30 tab, 2 Refill(s), Pharmacy: [id number], 160.02, cm, 06/09/22 8:47:00 CDT, Height, 77.727, kg, 06/09/22 8:47:00 CDT, Weight Memelias tip Talbot ibuprofen 600 mg oral tablet 06-17 16:53: 00 Yes 600 mg = 1 tab, PO, Q6H, X 14 day, # 56 tab, 1 Refill(s), Pharmacy: [facility] #[id number], 160.02, cm, 06/09/22 8:47:00 CDT, Height, 77.727, kg, 06/09/22 8:47:00 CDT, Weight Memelias tip Talbot Colace 100 mg oral capsule 06-17 16:53: 00 Yes 100 mg = 1 cap, PO, Daily, PRN Constipati on, # 60 cap, 2 Refill(s), Pharmacy: [facility] #[id number], 160.02, cm, 06/09/22 8:47:00 CDT, Height, 77.727, kg, 06/09/22 8:47:00 CDT, Weight Jesús tip Talbot Tylenol with Codeine #3 oral tablet 06-17 16:53: 00 Yes 1 - 2 tab, PO, Q6H, PRN Pain, X 5 day, # 20 tab, 0 Refill(s), [id number], 160.02, cm, 06/09/22 8:47:00 CDT, Height, 77.727, kg, 06/09/22 8:47:00 CDT, Weight Memoria tip Ringle Colace 100 mg oral capsule 06-17 14:21: 00 No Notes: (Same as: Colace) (Do Not Crush) Memoria tip Antione ibuprofen 06-15 17:00: 00 No Notes: (Same as: Motrin) "Do Not Crush" Take with food. Memoria tip DriscollAntione acetaminoph en 06-15 17:00: 00 No Notes: Do not exceed 4 gm/day. (Same as: Tylenol) Jesús Talbot Multivitami ns oral tablet 06-15 14:00: 00 No 1 tab, Route: PO, Drug Form: TAB, Dosing Weight 77.727, kg, Daily, Start date: 06/15/22 9:00:00 CDT, Duration: 30 day, Stop date: 07/14/22 9:00:00 CDT, 0 Jesús Talbot Lactated Ringers (Bolus) IV 06-15 14:00: 00 No 1,000 mL, 1,000 ml/hr, Infuse Over: 1 hr, Route: IV, 1,000, Drug form: INJ, ONCALL, Dosing Weight 77.727 kg, Start date: 06/15/22 9:00:00 CDT, Duration: 1 doses or times, For OB hemorrhage per physician direction, 0 Jesús Talbot oxytocin 06-15 14:00: 00 No Notes: (Same as: Pitocin) Hazardous Drug Group 3:Reproduc tive risk Hazardous Drug -- Refer to safe handling procedure PPE Matrix Jesús Talbot misoprostol 06-15 14:00: 00 No Notes: (Same as:Cytotec ) Hazardous Drug Group 3:Reproduc tive risk Hazardous Drug -- Refer to safe handling procedure PPE Matrix Take with food Jesús Talbot methylergon ovine 06-15 14:00: 00 No Notes: (Same as:Metherg ine) Hazardous Drug Group 3:Reproduc tive risk Hazardous Drug -- Refer to safe handling procedure PPE Matrix Inoelias tip Talbot atropine-di phenoxylate 0.025 mg-2.5 mg oral tablet 06-15 14:00: 00 No Notes: (Same As: Lomotil) MAX Adult dose = 8 tabs/day Jesús Talbot carboprost 06-15 14:00: 00 No Notes: (Same As: Hemabate) Jesús Talbot tranexamic acid 06-15 14:00: 00 No Notes: (Same As: Cyklokapro n) Jesús Talbot Saline Flush 0.9% 06-15 14:00: 00 No Notes: Same as: BD Posiflush Sterile Jesús Talbot naloxone 06-15 14:00: 00 No Notes: Same as Narcan Memelias Talbot morphine Sulfate (ANES) 06-15 13:57: 00 No Route: INTRATHECA L, Drug form: SOLN, ONCE, Stop date: 06/15/22 8:57:00 CDT Memelias Talbot ondansetron (ANES) 06-15 13:55: 00 No Route: IV, Drug form: INJ, ONCE, Stop date: 06/15/22 8:55:00 CDT Jesús Talbot ketOROLAC (ANES) 06-15 13:55: 00 No IV, ONCE Jesús Talbot promethazin e () 06-15 13:55: 00 No Route: IV, Drug form: INJ, ONCE, Stop date: 06/15/22 8:55:00 CDT Jesús Talbot Lactated Ringers IV 1,000 mL 06-15 13:55: 00 No 1,000 mL, Rate: 125 ml/hr, Infuse over: 8 hr, Route: IV, Dosing Weight 77.727 kg, Total Volume: 1,000, see special instructio n for rate while completing infusion from recovery for the 20 Units of Oxytocin., Start date: 06/15/22 8:55:00 CDT, Duration:. .. Memelias Talbot bisacodyl 06-15 13:55: 00 No Notes: (Same As: Dulcolax, Bisco-Lax) Jesús Talbot lanolin topical cream 06-15 13:55: 00 No Notes: (Same as:Lanolin ) Jesús Talbot benzocaine- menthol topical 06-15 13:55: 00 No Notes: Cepacol lozenges Dispense 1 box = 16 lozenges (Same As: Cepacol Lozenges) Jesús Talbot simethicone 06-15 13:55: 00 No Notes: (Same as: Mylicon) Memelias Driscollann oxytocin 30 units in NS 500 mL (Titrate) IV 30 unit 06-15 13:55: 00 No Notes: Hazardous Drug Group 3:Reproduc tive risk Hazardous Drug -- Refer to safe handling procedure PPE Matrix Jesús Talbot Saline Flush 0.9% 06-15 13:55: 00 No Notes: Same as: BD Posiflush Sterile Jesús tip Ringle oxyCODONE immediate release 06-15 13:55: 00 No Notes: (Same as: Roxicodone ) Jesús Talbot ondansetron 06-15 13:55: 00 No Notes: (Same as: Zofran) MEDICATION WASTE Product Size: 4 mg Product Wasted: ___ mg Jesús Driscollann promethazin e 06-15 13:55: 00 No Notes: Do not give IV push. (Same as: Phenergan) Jesús Driscollann metoclopram krzysztof 06-15 13:55: 00 No Notes: (Same as: Reglan) Jesús Driscollann nalbuphine 06-15 13:55: 00 No Notes: (Same As: Nubain) Jesús tip Antione naloxone 06-15 13:55: 00 No Notes: Same as Narcan Jesús whelan Antione methylergon ovine (ANES) 06-15 13:50: 00 No Route: IM, Drug form: INJ, ONCE, Stop date: 06/15/22 8:50:00 CDT Inoelias tip Antione fentaNYL (ANES) 06-15 13:40: 00 No Route: EPIDURAL, Drug form: INJ, ONCE, Stop date: 06/15/22 8:40:00 CDT Inoelias tip Ringle sodium bicarbonate (ANES) 06-15 13:35: 00 No Route: EPIDURAL, Drug form: INJ, ONCE, Stop date: 06/15/22 8:35:00 CDT Inoelias Driscollann famotidine (ANES) 06-15 13:30: 00 No Route: IV, Drug form: INJ, ONCE, Stop date: 06/15/22 8:30:00 CDT Jesús Talbot ondansetron (ANES) 06-15 13:30: 00 No Route: IV, Drug form: INJ, ONCE, Stop date: 06/15/22 8:30:00 CDT Jesús Talbot EPINEPHrine -lidocaine (ANES) 06-15 13:30: 00 No Route: IV, Drug Form: INJ, ONCE, Stop date: 06/15/22 8:30:00 CDT Jesús Talbot ceFAZolin (ANES) 06-15 13:25: 00 No Route: IV, Drug form: INJ, ONCE, Stop date: 06/15/22 8:25:00 CDT Jesús Talbot oxytocin (ANES) 30 unit 06-15 13:07: 00 No Route: IV, Drug form: SOLN, Start date: 06/15/22 8:07:00 CDT, Stop date: 06/15/22 9:07:00 CDT Jesús Talbot acetaminoph en (ANES) 10 mg 06-15 13:03: 00 No Route: IV, Drug form: INJ, Start date: 06/15/22 8:03:00 CDT, Stop date: 06/15/22 9:03:00 CDT Jesús Talbot Lactated Ringers Injection IV (ANES) 1000 mL 06-15 12:53: 00 No Route: IV, Total Volume: 1,000, Start date: 06/15/22 7:53:00 CDT, Stop date: 06/15/22 8:53:00 CDT Jesús Talbot azithromyci n (ANES) 500 mg 06-15 12:40: 00 No Route: IV, Drug form: INJ, Start date: 06/15/22 7:40:00 CDT, Stop date: 06/15/22 8:40:00 CDT Jesús Talbot Pepcid 06-15 11:13: 00 No Notes: (Same as: Pepcid) Jesús Talbot Ropivacaine 0.1% + fentaNYL 2 mcg/ml Epidural CADD 200 mL 06-14 11:08: 00 No Notes: (Same as Elisa ladd) Inoelias tip DriscollRingle oxytocin 30 units in NS 500 mL (Titrate) IV 30 unit 06-14 09:20: 00 No Notes: Hazardous Drug Group 3:Reproduc tive risk Hazardous Drug -- Refer to safe handling procedure PPE Matrix Jesús Talbot Remove - dinoproston e (Cervidil) insert 06-14 09:00: 00 No Notes: Vaginal insert: to be removed 1 hour prior to oxytocin administra tion or 12 hours after insertion. Hazardous Drug Group 3:Reproduc tive risk Hazardous Drug -- Refer to safe handling procedure PPE Matrix Jesús Talbot Cervidil 06-13 20:20: 00 No Notes: (Same as: Cervidil) Hazardous Drug Group 3:Reproduc tive risk Hazardous Drug -- Refer to safe handling procedure PPE Matrix Jesús Talbot Remove - dinoproston e (Cervidil) insert 06-13 19:00: 00 No Notes: Vaginal insert: to be removed 1 hour prior to oxytocin administra tion or 12 hours after insertion. Hazardous Drug Group 3:Reproduc tive risk Hazardous Drug -- Refer to safe handling procedure PPE Matrix Jesús Talbot acetaminoph en 06-13 07:00: 00 No Notes: Do not exceed 4 gm/day. (Same as: Tylenol) Inoelias tip Talbot ibuprofen 06-13 07:00: 00 No Notes: (Same as: Motrin) "Do Not Crush" Take with food. Jesús Talbot Lactated Ringers (Bolus) IV 06-13 07:00: 00 No 1,000 mL, 1,000 ml/hr, Infuse Over: 1 hr, Route: IV, 1,000, Drug form: INJ, ONCALL, Dosing Weight 77.727 kg, Start date: 06/13/22 2:00:00 CDT, Duration: 1 doses or times, For OB hemorrhage per physician direction, 0 Jesús Talbot oxytocin 06-13 07:00: 00 No Notes: (Same as: Pitocin) Hazardous Drug Group 3:Reproduc tive risk Hazardous Drug -- Refer to safe handling procedure PPE Matrix Jesús Talbot misoprostol 06-13 07:00: 00 No Notes: (Same as:Cytotec ) Hazardous Drug Group 3:Reproduc tive risk Hazardous Drug -- Refer to safe handling procedure PPE Matrix Take with food Jesús Driscollann methylergon ovine 06-13 07:00: 00 No Notes: (Same as:Metherg ine) Hazardous Drug Group 3:Reproduc tive risk Hazardous Drug -- Refer to safe handling procedure PPE Matrix Jesús whelan Antione atropine-di phenoxylate 0.025 mg-2.5 mg oral tablet 06-13 07:00: 00 No Notes: (Same As: Lomotil) MAX Adult dose = 8 tabs/day Inoelias tip Talbot carboprost 06-13 07:00: 00 No Notes: (Same As: Hemabate) Inoelias tip Talbot tranexamic acid 06-13 07:00: 00 No Notes: (Same As: Cyklokapro n) Jesús Talbot Lactated Ringers Injection IV 1,000 mL 06-13 06:42: 00 No 1,000 mL, Rate: 125 ml/hr, Infuse over: 8 hr, Route: IV, Dosing Weight 77.727 kg, Total Volume: 1,000, see special instructio ns when infusing 20 Units of Oxytocin., Start date: 06/13/22 1:42:00 CDT, Duration: 30 day, Stop date: 07/13/22 1:41:00 CDT, B... Jesús Talbot oxytocin 30 units in NS 500 mL (Bolus) IV 10.02 unit 06-13 06:42: 00 No Notes: Hazardous Drug Group 3:Reproduc tive risk Hazardous Drug -- Refer to safe handling procedure PPE Matrix Jesús whelan Antione butorphanol 06-13 06:42: 00 No Notes: (Same As: Stadol) MEDICATION WASTE Product Size: 2 mg Product Wasted: ___ mg Jesús Talbot oxyCODONE immediate release 06-13 06:42: 00 No Notes: (Same as: Roxicodone ) Inoelias tip Talbot ondansetron 06-13 06:42: 00 No Notes: (Same as: Zofran) MEDICATION WASTE Product Size: 4 mg Product Wasted: ___ mg Jesús Talbot lidocaine 1% injectable solution 06-13 06:42: 00 No Notes: Preservati ve free. (Same as: Xylocaine MPF) Jeúss Talbot terbutaline 06-13 06:42: 00 No Notes: DO NOT USE IN MANUSCRIPT EDITOR AREA (Same As: Brethine) Jesús Talbot Dermoplast Pain Relieving 20%-0.5% topical spray 06-13 06:42: 00 No Notes: (Same As: Dermoplast ) WASTE: Aerosol - Return to Pharmacy FOR EXTERNAL USE ONLY Jesús Talbot oxytocin 30 units in NS 500 mL (Titrate) IV 30 unit 06-13 06:42: 00 No Notes: Hazardous Drug Group 3:Reproduc tive risk Hazardous Drug -- Refer to safe handling procedure PPE Matrix Jesús Talbot Cervidil 06-13 06:42: 00 No Notes: (Same as: Cervidil) Hazardous Drug Group 3:Reproduc tive risk Hazardous Drug -- Refer to safe handling procedure PPE Matrix Jesús Talbot Keflex 500 mg oral capsule 05-13 16:05: 00 Yes 500 mg = 1 cap, PO, QID, X 10 day, # 40 cap, 0 Refill(s), Pharmacy: [facility][id number], 160.02, cm, 05/11/22 21:15:00 CDT, Height, 78.182, kg, 05/11/22 21:15:00 CDT, Weight Jesús Talbot Pepcid 40 mg oral tablet 05-13 07:05: 00 No Notes: (Same as: Pepcid) Jesús Talbot Rocephin + sterile water 10 mL 05-12 23:00: 00 No Notes: (Same As: Rocephin). Use with 100 mL NS and infuse over 30 min MEDICATION WASTE Product Size: 1000 mg Product Wasted: ___ mg Jesús whelan Antione multivitami n, 05-12 14:00: 00 No 1 tab, Route: PO, Drug Form: TAB, Dosing Weight 78.182, kg, Daily, Start date: 05/12/22 9:00:00 CDT, Duration: 30 day, Stop date: 06/10/22 9:00:00 CDT, 0 Jesús Talbot Rocephin + sterile water 10 mL 05-12 11:00: 00 No Notes: (Same As: Rocephin). Use with 100 mL NS and infuse over 30 min MEDICATION WASTE Product Size: 1000 mg Product Wasted: ___ mg Jesús Talbot Zofran ODT 05-12 03:43: 00 No Notes: (Same as: Zofran ODT) Jesús Talbot Benadryl 05-12 02:52: 00 No Notes: (Same as: Benadryl) Jesús Talbot Tylenol 05-12 02:52: 00 No Notes: Do not exceed 4 gm/day. (Same as: Tylenol) Jesús Talbot Tylenol 05-11 12:36: 00 No Notes: Max acetaminop hen 4000 mg/day (4 gm/day). (Same as: Tylenol Extra Strength) Jesús Talbot DOCUSATE CALCIUM PO 12-09 09:46: 03 Yes Take by mouth. [facility] MV-Min-Fe Fum-FA-DHA ( 1 PO) 12-09 09:45: 27 Yes Take by mouth. [facility] Acetaminoph en 10-15 00:35: 00 Yes Notes: Do not exceed 4 gm/day. 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 [facility] ibuprofen 600 mg oral tablet 2020-10 10:59: 00 Yes 600 mg = 1 tab, PO, Q8H, PRN pain, X 5 day, # 30 tab, 0 Refill(s) Jesús Talbot Acetaminoph en 325 MG / butalbital 50 MG / Caffeine 40 MG Oral Tablet [Esgic] 2020-10 10:07: 00 No Notes: (acetamino phen-butal bital-caff eine 325-50-40m g) Do not exceed 4 gm/day of acetaminop hen. (Same as: Esgic, Fioricet) Jesús Talbot escitalopra m oxalate (LEXAPRO ORAL) 04-13 14:44: 55 Yes Take by mouth. [facility] traMADol 50 mg tablet 03-19 00:00: 00 09-06 00:00 :00 No [id number] 50mg Take 1 tablet by mouth every 6 (six) hours as needed (PAIN). [facility] ondansetron 4 mg tablet 03-19 00:00: 00 09-06 00:00 :00 No [id number] 4mg Take 1 tablet by mouth every 8 (eight) hours as needed for Nausea and Vomiting (N/V). [facility] Vital Signs Vital Name Observation Time Observation Value Comments S ource Body height 2021-12-09 15:39:00 160 [facility] Body weight 2021-12-09 15:39:00 67.132 kg [facility] BMI 2021-12-09 15:39:00 26.22 kg/m2 [facility] Body mass index (BMI) [Percentile] Per age and sex 2021-12-09 15:39:00 85.43 % [facility] Systolic blood pressure 2021-09-06 21:45:00 100 mm[Hg] [facility] Diastolic blood pressure 2021-09-06 21:45:00 69 mm[Hg] [facility] Heart rate 2021-09-06 21:45:00 97 /min [facility] Body temperature 2021-09-06 21:45:00 36.72 Shanda [facility] Respiratory rate 2021-09-06 21:45:00 18 /min [facility] Body height 2021-09-06 21:45:00 160 cm [facility] Body weight 2021-09-06 21:45:00 66.044 kg [facility] BMI 2021-09-06 21:45:00 25.79 kg/m2 [facility] Body mass index (BMI) [Percentile] Per age and sex 2021-09-06 21:45:00 84.16 % [facility] Oxygen saturation in Arterial blood by Pulse oximetry 2021-09-06 21:45:00 99 /min [facility] Temperature Oral (F) 2022-06-17 12:30:00 97.8 F [facility] Heart Rate 2022-06-17 12:30:00 [facility] Respitory Rate 2022-06-17 12:30:00 [facility] Systolic (mm Hg) 2022-06-17 12:30:00 [facility] Diastolic (mm Hg) 2022-06-17 12:30:00 [facility] Temperature Oral (F) 2022-06-17 05:00:00 98 F [facility] Heart Rate 2022-06-17 05:00:00 [facility] Respitory Rate 2022-06-17 05:00:00 [facility] Systolic (mm Hg) 2022-06-17 05:00:00 [facility] Diastolic (mm Hg) 2022-06-17 05:00:00 [facility] Temperature Oral (F) 2022-06-16 21:00:00 98.1 F [facility] Heart Rate 2022-06-16 21:00:00 [facility] Respitory Rate 2022-06-16 21:00:00 [facility] Systolic (mm Hg) 2022-06-16 21:00:00 [facility] Diastolic (mm Hg) 2022-06-16 21:00:00 [facility] Height 2022-06-09 13:47:00 160.02 cm [facility] Weight 2022-06-09 13:47:00 [facility] BMI Calculated 2022-06-09 13:47:00 [facility] Systolic (mm Hg) 2022-05-26 04:12:00 [facility] Diastolic (mm Hg) 2022-05-26 04:12:00 [facility] Systolic (mm Hg) 2022-05-26 04:00:00 [facility] Diastolic (mm Hg) 2022-05-26 04:00:00 [facility] Systolic (mm Hg) 2022-05-26 03:30:00 [facility] Diastolic (mm Hg) 2022-05-26 03:30:00 [facility] Height 2022-05-26 00:20:00 160.02 cm [facility] BMI Calculated 2022-05-26 00:20:00 [facility] Weight 2022-05-26 00:20:00 [facility] Heart Rate 2022-05-26 00:20:00 [facility] Respitory Rate 2022-05-26 00:20:00 [facility] Temperature Oral (F) 2022-05-26 00:20:00 98.1 F [facility] Heart Rate 2022-05-13 15:29:07 [facility] Respitory Rate 2022-05-13 15:29:07 [facility] Temperature Oral (F) 2022-05-13 15:28:58 98.6 F [facility] Systolic (mm Hg) 2022-05-13 15:28:51 [facility] Diastolic (mm Hg) 2022-05-13 15:28:51 [facility] Heart Rate 2022-05-13 15:28:51 [facility] Heart Rate 2022-05-13 11:20:26 [facility] Respitory Rate 2022-05-13 11:20:26 [facility] Temperature Oral (F) 2022-05-13 11:20:23 98 F [facility] Systolic (mm Hg) 2022-05-13 11:20:04 [facility] Diastolic (mm Hg) 2022-05-13 11:20:04 [facility] Respitory Rate 2022-05-13 06:53:47 [facility] Temperature Oral (F) 2022-05-13 06:53:43 98.6 F [facility] Systolic (mm Hg) 2022-05-13 06:53:37 [facility] Diastolic (mm Hg) 2022-05-13 06:53:37 [facility] Height 2022-05-12 02:15:00 160.02 cm [facility] Weight 2022-05-12 02:15:00 [facility] BMI Calculated 2022-05-12 02:15:00 [facility] Systolic (mm Hg) 2022-05-11 13:00:00 [facility] Diastolic (mm Hg) 2022-05-11 13:00:00 [facility] Height 2022-05-11 11:58:00 160.02 cm [facility] BMI Calculated 2022-05-11 11:58:00 [facility] Weight 2022-05-11 11:58:00 [facility] Systolic (mm Hg) 2022-05-11 11:58:00 [facility] Diastolic (mm Hg) 2022-05-11 11:58:00 [facility] Heart Rate 2022-05-11 11:58:00 [facility] Respitory Rate 2022-05-11 11:58:00 [facility] Temperature Oral (F) 2022-05-11 11:58:00 97.3 F [facility] Systolic (mm Hg) 2022-03-24 02:16:00 [facility] Diastolic (mm Hg) 2022-03-24 02:16:00 [facility] Systolic (mm Hg) 2022-03-24 01:45:00 [facility] Diastolic (mm Hg) 2022-03-24 01:45:00 [facility] Systolic (mm Hg) 2022-03-24 01:06:00 [facility] Diastolic (mm Hg) 2022-03-24 01:06:00 [facility] Height 2022-03-24 00:28:00 160.02 cm [facility] BMI Calculated 2022-03-24 00:28:00 [facility] Weight 2022-03-24 00:28:00 [facility] Heart Rate 2022-03-24 00:28:00 [facility] Respitory Rate 2022-03-24 00:28:00 [facility] Temperature Oral (F) 2022-03-24 00:28:00 98.3 F [facility] Height 2021-10-15 00:25:00 160.02 cm [facility] BMI Calculated 2021-10-15 00:25:00 [facility] Weight 2021-10-15 00:25:00 [facility] Systolic (mm Hg) 2021-10-15 00:25:00 [facility] Diastolic (mm Hg) 2021-10-15 00:25:00 [facility] Heart Rate 2021-10-15 00:25:00 [facility] Respitory Rate 2021-10-15 00:25:00 [facility] Temperature Oral (F) 2021-10-15 00:25:00 100.3 F [facility] Respitory Rate 2021-08-14 12:30:00 [facility] Systolic (mm Hg) 2021-08-14 12:30:00 [facility] Diastolic (mm Hg) 2021-08-14 12:30:00 [facility] Respitory Rate 2021-08-14 12:00:00 [facility] Systolic (mm Hg) 2021-08-14 12:00:00 [facility] Diastolic (mm Hg) 2021-08-14 12:00:00 [facility] Respitory Rate 2021-08-14 11:30:00 [facility] Systolic (mm Hg) 2021-08-14 11:30:00 [facility] Diastolic (mm Hg) 2021-08-14 11:30:00 [facility] Height 2021-08-14 08:07:00 160.02 cm [facility] BMI Calculated 2021-08-14 08:07:00 [facility] Weight 2021-08-14 08:07:00 [facility] Heart Rate 2021-08-14 08:07:00 [facility] Temperature Oral (F) 2021-08-14 08:07:00 97.8 F [facility] Procedures Procedure Date / Time Performed Performing Clinicia n Source XR CERVICAL SPINE 2 2023-06-01 20:43:02 Josefina Knowles [facility] XR LUMBAR SPINE 2 2023-06-01 20:43:02 Josefina Knowles [facility] XR SPINE THORACIC 2 2023-06-01 20:43:02 Josefina Knowles Tracy [facility] CONSENT/REFUSAL FOR DIAGNOSIS AND TREATMENT 2023-06-01 20:00:05 Doctor Unassigned, [place] [facility] POCT TEST 2021-09-06 21:55:00 Sherri Oconnor [facility] Admission to plastic surgery department<sup>1</sup > Caden Talbot Encounters Start Date/Time End Date/Time Encounter Type Admission Type Attending Clinicians Care Facility Care Department Encounter ID Source 2023-02-09 13:06:59 Outpatient [facility] [id number] [facility] 2022-06-12 23:58:00 Inpatient JACOB STEWART [facility] [id number] [facility] 2021-12-09 09:51:23 Outpatient [facility] [id number] [facility] 2021-12-09 09:50:50 Outpatient [facility] [id number] [facility] 2021-12-09 09:50:50 Outpatient [facility] [id number] [facility] 2021-12-08 15:51:55 Outpatient [facility] [id number] [facility] 2021-12-07 09:07:02 Outpatient [facility] [id number] [facility] 2024-08-18 22:28:00 2024-08-19 00:05:00 Emergency EM Jesika Alarcon [facility] [id number] [facility] 2023-06-01 15:02:19 2023-06-01 23:59:00 Outpatient R RADIOLOGY [facility] [id number] [facility] 2023-06-01 15:00:00 2023-06-01 23:59:00 Hospital Encounter Radiology [facility] [id number] 350.1.13.10 4.2.7.2.686 [id number] [facility] 2023-06-01 00:00:00 2023-06-01 00:00:00 Orders Only Doctor Unassigned, [place] [facility] 1.2.840.114 350.1.13.10 4.2.7.2.686 [id number] [facility] 2022-06-13 04:58:00 2022-06-17 21:40:00 Inpatient nullFlavo [facility] [id number] 2022-06-15 00:45:00 2022-06-15 00:45:00 Outpatient [facility] [id number] [facility] 2022-06-12 00:00:00 2022-06-12 00:00:00 Outpatient [facility]JFJ[facility] [id number] [facility] 2022-05-26 00:10:34 2022-05-26 04:15:00 Emergency nullFlavo [facility] [id number] [facility] 2022-05-25 19:10:00 2022-05-25 23:15:00 Emergency E NADEGE AVILES [facility] [id number] [facility] 2022-05-12 02:51:00 2022-05-13 18:00:00 Observatio n nullFlavo [facility] [id number] [facility] 2022-05-11 21:51:00 2022-05-13 13:00:00 Outpatient Homer MOTLEY TOÑITO [facility] [id number] [facility] 2022-05-11 11:43:57 2022-05-11 13:15:00 Emergency nullFlavo [facility] [id number] [facility] 2022-05-11 06:43:00 2022-05-11 08:15:00 Emergency E JOCELYNE BEGUM [facility] [id number] [facility] 2022-03-24 00:17:28 2022-03-24 02:43:00 Emergency [facility] [id number] Jesús whelan [facility] 2022-03-23 19:17:00 2022-03-23 21:43:00 Emergency JOCLEYNE ROCK [facility] [id number] [facility] 2022-01-19 00:00:00 2022-01-19 00:00:00 Telephone Dagoberto Olvera [facility] [address] 1.2.840.114 350.1.13.58 9.2.7.2.[id number] [facility] 2022-01-05 00:00:00 2022-01-05 00:00:00 Telephone Dagoberto Olvera [facility] [address] 1.2.840.114 350.1.13.58 9.2.7.2.[id number] [facility] 2021-12-26 00:00:00 2021-12-26 00:00:00 Telephone Dagoberto Olvera [facility] [address] 1.2.840.114 350.1.13.58 9.2.7.2.[id number] [facility] 2021-12-21 00:00:00 2021-12-21 00:00:00 Telephone Dagoberto Olvera [facility] [address] 1.2.840.114 350.1.13.58 9.2.7.2.[id number] [facility] 2021-12-09 00:00:00 2021-12-09 00:00:00 Nurse Only Lexy Paulson Robyn [facility] [address] 1.2.840.114 350.1.13.58 9.2.7.2.[id number] [facility] 2021-12-08 14:00:00 2021-12-08 15:00:00 Education Counselor, [facility] [address] 1.2.840.114 350.1.13.58 9.2.7.2.[id number] [facility] 2021-10-19 09:00:00 2021-10-19 09:00:00 Outpatient SHERRI SNELL [facility] [id number] [facility] 2021-10-15 00:13:06 2021-10-15 03:05:00 Emergency nullFlavo r [facility] [id number] [facility] 2021-10-14 18:13:00 2021-10-14 21:05:00 Emergency E MELECIO DEE [facility] [address] [facility] 2021-10-11 15:45:00 2021-10-11 15:45:00 Outpatient SHERRI SNELL [facility] [id number] [facility] 2021-09-21 14:30:00 2021-09-21 15:10:35 Outpatient Hunter [facility] [id number] [facility] 2021-09-21 14:30:00 2021-09-21 14:45:00 Laboratory Only Only, Ang Db Test Steven [facility] 1.2.840.114 350.1.13.10 4.2.7.2.686 [id number] [facility] 2021-09-07 09:00:00 2021-09-07 09:00:00 Outpatient SHERRI SNELL [facility] [id number] [facility] 2021-09-07 09:00:00 2021-09-07 09:00:00 Outpatient SHERRI SNELL [facility] [id number] [facility] 2021-09-06 16:45:00 2021-09-06 16:45:00 Outpatient SHERRI SNELL [facility] [id number] [facility] 2021-09-06 16:45:00 2021-09-06 16:45:00 Outpatient R SHERRI OCONNOR [facility] [id number] [facility] 2021-09-06 16:28:59 2021-09-06 16:43:59 Farm Facility Manager Visit Pob, Adc Lab Main Sherri Oconnor [facility] BUILDING 1.2.840.114 350.1.13.10 4.2.7.2.686 [id number] [facility] 2021-09-06 15:20:42 2021-09-06 16:09:45 Office Visit Sherri Oconnor [facility] BUILDING 1.2.840.114 350.1.13.10 4.2.7.2.686 [id number] [facility] 2021-09-06 15:15:00 2021-09-06 16:09:45 Outpatient R SHERRI OCONNOR [facility] [id number] [facility] 2021-09-06 00:00:00 2021-09-06 00:00:00 Orders Only Doctor Unassigned, [place] [facility] 1..840.114 350.1.13.10 4.2.7.2.686 [id number] [facility] 2021-08-14 08:00:28 2021-08-14 13:00:00 Emergency nullFlavo r [facility] [id number] Jesús whelan [facility] 2021-02-02 00:00:00 2021-02-02 00:00:00 Outpatient R VALERIA PEREZ [facility] [id number] [facility] 2020-04-24 08:00:00 2020-04-24 08:00:00 Outpatient R EDWIGE DUNCAN [facility] [id number] [facility] 2020-04-19 00:00:00 2020-04-19 00:00:00 Letter (Out) Cecilia Mcmahon [facility] Office Building One 1.2.840.114 350.1.13.10 4.2.7.2.686 [id number] [facility] 2020-04-15 00:00:00 2020-04-15 00:00:00 Telephone Cecilia Mcmahon [facility] 1.2.840.114 350.1.13.10 4.2.7.2.686 [id number] [facility] 2020-04-13 14:39:08 2020-04-13 14:59:08 Urgent Care Pob1, Acute Care Clinic Daniel Duncanthia [facility] 1.2.840.114 350.1.13.10 4.2.7.2.686 [id number] [facility] 2020-04-13 14:40:00 2020-04-13 14:40:00 [facility] [id number] [facility] 2020-03-19 08:59:46 2020-03-19 12:08:00 Emergency Manuel George [facility] 1.2.840.114 350.1.13.10 4.2.7.2.686 [id number] [facility] 2020-03-19 08:59:46 2020-03-19 12:08:00 Emergency X MANUEL [facility] ERT [id number] [facility] Results Test Description Test Time Test Comments Results Result Co mments Source [employer] [id number] 21:06:00* Test Item Value Reference Range Interpretation Comme nts Glucose Lvl (test code = Glucose Lvl) 67 70-99 [facility]FPFOTYI8950-78-30 02:08:00* Test Item Value Reference Range Interpretation Comme nts PT (test code = PT) 12.9 s 12.0-14.7 [facility] [id number] 06:51:00* Test Item Value Reference Range Interpretation Comme nts ABO/Rh (test code = ABO/Rh) O POS [facility] CenterRarbngkWXZJHZBCLT2485-08-00 06:51:00* Test Item Value Reference Range Interpretation Comme nts WBC (test code = WBC) 11.9 3.7-10.4 [facility]IFT2698-22-47 06:51:00* Test Item Value Reference Range Interpretation Comme nts Hep Bs Ag (test code = Hep Bs Ag) Negative *NA*(06/13/22 1:51 AM) [facility] Center[facility]vvxtffQRQEUDEPET6844-33-71 13:49:00* Test Item Value Reference Range Interpretation Comme nts Coronavirus (COVID-19) LUCY (test code = Coronavirus (COVID-19) LUCY) Detected *ABN*(06/09/22 8:49 AM) [facility] AND [id number] 02:15:00* Test Item Value Reference Range Interpretation Comme nts UA Color (test code = UA Color) Yellow *NA*(05/25/22 9:15 PM) [facility] [id number] 02:15:00* Test Item Value Reference Range Interpretation Comme nts U Creatinine (test code = U Creatinine) 67.60 [facility] [id number] 01:12:00* Test Item Value Reference Range Interpretation Comme nts Glucose Lvl (test code = Glucose Lvl) 82 70-99 [facility]JomyhxvICKDNHUFCP9468-98-24 01:12:00* Test Item Value Reference Range Interpretation Comme nts WBC (test code = WBC) 11.7 3.7-10.4 [facility] HospitalJvyoqdaAQHWXTSGTZ7224-35-65 11:06:00* Test Item Value Reference Range Interpretation Comme nts WBC (test code = WBC) 9.2 3.7-10.4 [facility] HospitalJtscutwRLMOHFABAB2883-55-67 11:16:00* Test Item Value Reference Range Interpretation Comme nts Segs (test code = Segs) 82.3 45.0-75.0 [facility] AND [id number] 05:20:00* Test Item Value Reference Range Interpretation Comme nts UA Color (test code = UA Color) Yellow *NA*(05/12/22 12:20 AM) [facility] BANK [id number] 04:01:00* Test Item Value Reference Range Interpretation Comme nts ABO/Rh (test code = ABO/Rh) O POS [facility]YtysvowGAFSPCXBXH5836-56-73 02:17:00* Test Item Value Reference Range Interpretation Comme nts Coronavirus (COVID-19) LUCY (test code = Coronavirus (COVID-19) LUCY) Not Detected (05/11/22 9:17 PM) [facility] [id number] 21:55:00* Test Item Value Reference Range Interpretation Comme nts POCT PREG (test code = 1605) Negative On board controls acceptable with C Line (test code = 3574) Yes POCT PREG LOT # (test code = 3575) POCT PREG TEST DATE ( test code = 3576) [facility] [id number] 21:55:00* Test Item Value Reference Range Interpretation Comme nts POCT PREG (test code = 1605) Negative On board controls acceptable with C Line (test code = 3574) Yes POCT PREG LOT # (test code = 3575) POCT PREG TEST DATE ( test code = 3576) [facility] Notes Date/Time Note Provider Source 2024-08-18 23:52:00 [facility] EMERGENCY PROVIDER REPORT REPORT#:[id number] REPORT STATUS: Signed DATE:08/18/24 TIME: 2351 PATIENT: CONCEPCION BLACKMON UNIT #: [id number] ROOM/BED: : 02 AGE: 23 SEX: F PCP PHYS: Josefina Knowles LOADING MANAGER SERVICE AUTHOR: Jesika Alarcon MD REP SRV REP SRV TM: 2352 * ALL edits or amendments must be made on the electronic/computer document * HPI-General Illness General Initial Greet Date/Time 08/18/242229 Presentation Chief Complaint __ (LEFT BREAST PAIN) Hx Obtained From Patient Free Text HPI Notes Free Text HPI Notes 23-year-old female presents with acute worsening of left breast pain x 3 days. This pain is described as sharp, with no known exacerbating or alleviating factors. Patient reports undergoing a bilateral breast reduction approximately 6 months ago by plastic surgeon in [place]. Approximately 1 month ago she noticed a painful left breast mass and has been referred to a breast specialist, for which she is scheduled to see in 3 months. She has had 2 ultrasounds of the left breast and has not been given a diagnosis for her left breast pain. Patient denies breast swelling, discoloration, nipple discharge, or or fever. She has tried taking Tylenol without relief of pain. Review of Systems ROS Statements All systems rev neg except as marked. Review of Systems Constitutional Denies: Fever. Respiratory Denies: Cough, non-productive, Cough, productive, Shortness of breath. Cardiovascular Denies: Chest pain. GI Denies: Abdominal pain, Nausea, Vomiting. Skin Denies: Rash, Swelling. Neurologic Denies: Headache. Past Medical History - Adult Stated Complaint LEFT BREAST LUMP NOTED 6 MONTHS AGO/ PAIN INCREASE Allergies Coded Allergies: No Known Allergies (08/18/24) Home Medications Reported Medications PHENTERMINE (Unknown Dose) PARoxetine HCL (PAXIL) (Unknown Dose) Physical Exam Vital Signs Vital Signs First Documented: Result Date Time Pulse Ox 100 08/18 2230 B/P 109/80 08/18 2230 B/P Mean 89 08/18 2230 O2 Delivery Room air 08/18 2230 Temp 97.7 08/18 2230 Pulse 65 08/18 2230 Resp 08/18 Last Documented: Result Date Time Pulse Ox 100 08/19 5 B/P 109/81 08/19 5 B/P Mean 90 08/19 5 Temp 97.7 08/19 5 Pulse 66 08/19 5 Resp 18 08/19 5 O2 Delivery Room air 08/18 2230 Review of Vital Signs Reviewed Physical Exam General/Const General/Const Awake, Alert, No acute distress, Well appearing, Well developed , Well hydrated, Well nourished, Cooperative, Not toxic appearing Resp/Chest Respiratory/Chest Atraumatic, Breath sounds NL, Breath sounds = bilat, No respiratory distress, No rales, No rhonchi, No wheezing Text/Dict Notes Left breast normal in appearance, no skin discoloration or overlying wounds or lesions, several small, scattered palpable masses that are mildly tender to palpation, no nipple discharge; no signs of infection or palpable fluctuant mass Cardiovascular Cardiovascular Heart rate NL, Regular rhythm, Heart sounds NL, No gallop, No murmurs Skin Skin Atraumatic, Color NL, No rash, Warm, Dry, Intact, Turgor NL, No swelling Neurologic Neurologic Oriented X3, Speech NL, CN II - XII intact, Gait NL Psychiatric Psychiatric Affect NL, Mood NL Re-Evaluation MDM ED Course Medication(s) Ordered Medication(s) Ordered: Central Nervous System Agents Sig/Li Start time Last Medication Dose Route Stop Time Status Admin Tramadol HCl 50 MG X1ED STA 08/18 2352 DC PO 08/18 2353 Ibuprofen 800 MG X1ED STA 08/18 2351 DC 08/19 PO 08/18 235 0004 Patient Discharge Departure Vital Signs/Condition Vital Signs First Documented: Result Date Time Pulse Ox 100 08/18 2230 B/P 109/80 08/18 2230 B/P Mean 89 08/18 2230 O2 Delivery Room air 08/18 2230 Temp 97.7 08/18 2230 Pulse 65 08/18 2230 Resp 18 08/18 2230 Last Documented: Result Date Time Pulse Ox 100 08/19 0005 B/P 109/81 08/19 0005 B/P Mean 90 08/19 0005 Temp 97.7 08/19 0005 Pulse 66 08/19 0005 Resp 18 08/19 0005 O2 Delivery Room air 08/18 2230 All vital signs available at the time of this entry have been reviewed. Condition Stable Clinical Impression Clinical Impression Primary Impression: Breast pain, left Time of Impression 2352 Disposition Decision Discharge )( Discharged to Home Yes )( Time 2352 )( Date 08/18/24 Discharge/Care Plan Counseled Regarding Diagnosis, Need for follow-up, When to return to ED (Auto) Prescriptions Current Visit Scripts ACETAMINOPHEN/CODEINE (TYLENOL WITH CODEINE #3 300/30 MG) 1-2 TAB PO Q6H PRN PRN ACUTE PAIN ACETAMINOPHEN/CODEINE (TYLENOL WITH CODEINE #3 300/30 MG) 1-2 TAB PO Q6H PRN PRN ACUTE PAIN #15 TABS IBUPROFEN (MOTRIN) 800 MG PO Q8H PRN PRN PAIN IBUPROFEN (MOTRIN) 800 MG PO Q8H PRN PRN PAIN #30 TABS Patient Instructions ED Breast Lump, Uncertain Cause Referrals Provider Referral: Edith Ga MD Follow-Up: Call for appointment Address: [address] [place] [id number] Discharge Note I have spoken with the patient and/or caregivers. I have explained the patient's condition, diagnoses and treatment plan based on the information available to me at this time. I have answered the patient's and/or caregiver's questions and addressed any concerns. The patient and/or caregivers have as good an understanding of the patient's diagnosis, condition and treatment plan as can be expected at this point. The vital signs have been stable. The patient's condition is stable and appropriate for discharge from the emergency department. The patient will pursue further outpatient evaluation with the primary care physician or other designated or consulting physician as outlined in the discharge instructions. The patient and/or caregivers are agreeable to this plan of care and follow-up instructions have been explained in detail. The patient and/or caregivers have received these instructions in written format and have expressed an understanding of the discharge instructions. The patient and/or caregivers are aware that any significant change in condition or worsening of symptoms should prompt an immediate return to this or the closest emergency department or a call to 911. at [facility] RPT #:[id number] END OF REPORT [facility] 2022-06-14 15:59:00 EXAM: XR CHEST 1 VIE W DATE: 06/14/2022 15:48 INDICATION: - COVID +, Pain on inspiration COMPARISON: None. TECHNIQUE: AP chest IMPRESSION: There are no pulmonary or pleural based abnormalities. The cardiomediastinal silhouette is normal in size. There are no pleural effusions or pneumothorax. Osseous structures are unremarkable. [facility] 2021-08-14 06:20:58 Radiation Dose CTDIV OL = 0 (mGy): DLP = 458 (mGy-cm) PROCEDURE INFORMATION: Exam: CT Maxillofacial Without Contrast Exam date and time: 08/14/2021 6:18 AM Age: 20 years old Clinical indication: /fall down stairs, headache TECHNIQUE: Imaging protocol: Computed tomography images of the face without contrast. Radiation optimization: All CT scans at this facility use at least one of these dose optimization techniques: automated exposure control; mA and/or kV adjustment per patient size (includes targeted exams where dose is matched to clinical indication); or iterative reconstruction. COMPARISON: BRAIN WO CONTRAST CT 08/14/2021 6:09 AM RADIATION DOSE METRICS: Total DLP (mGy-cm): 458 FINDINGS: Orbital cavity: Orbits are normal. Globes are unremarkable. Bones/joints: No definite acute fracture or dislocation. Paranasal sinuses: Mild mucoperiosteal thickening in the ethmoid and both maxillary sinuses. No air-fluid levels. Obstructed bilateral ostiomeatal complexes are present. Mastoid air cells: Mild partial opacification of the mastoid air cells are present. Soft tissues: Unremarkable. IMPRESSION: No acute findings. Rohan Chambers MD On 08/14/2021 06:39:28; [id number] [facility] 2021-08-14 06:10:00 Radiation Dose CTDIV OL = 0 (mGy): DLP = 769 (mGy-cm) PROCEDURE INFORMATION: Exam: CT Cervical Spine Without Contrast Exam date and time: 08/14/2021 6:13 AM Age: 20 years old Clinical indication: /fall down stairs, +etoh TECHNIQUE: Imaging protocol: Computed tomography images of the cervical spine without contrast. Radiation optimization: All CT scans at this facility use at least one of these dose optimization techniques: automated exposure control; mA and/or kV adjustment per patient size (includes targeted exams where dose is matched to clinical indication); or iterative reconstruction. COMPARISON: BRAIN WO CONTRAST CT 08/14/2021 6:09 AM RADIATION DOSE METRICS: Total DLP (mGy-cm): 769 FINDINGS: Vertebrae: No acute fracture. Normal alignment. C2-C3: No significant disc protrusion. No severe spinal canal stenosis. No significant neural foraminal narrowing. C3-C4: No significant disc protrusion. No severe spinal canal stenosis. No significant neural foraminal narrowing. C4-C5: No significant disc protrusion. No severe spinal canal stenosis. No significant neural foraminal narrowing. C5-C6: No significant disc protrusion. No severe spinal canal stenosis. No significant neural foraminal narrowing. C6-C7: No significant disc protrusion. No severe spinal canal stenosis. No significant neural foraminal narrowing. C7-T1: No significant disc protrusion. No severe spinal canal stenosis. No significant neural foraminal narrowing. Soft tissues: Unremarkable. Lungs: Lung apices are normal. IMPRESSION: No acute findings. Alyssia Trevino MD On 08/14/2021 06:44:09; [id number] [facility] 2021-08-14 05:40:00 Radiation Dose CTDIV OL = 0 (mGy): DLP = 733 (mGy-cm) PROCEDURE INFORMATION: Exam: CT Head Without Contrast Exam date and time: 08/14/2021 6:09 AM Age: 20 years old Clinical indication: /fall down stairs, headache, +etoh TECHNIQUE: Imaging protocol: Computed tomography of the head without contrast. Radiation optimization: All CT scans at this facility use at least one of these dose optimization techniques: automated exposure control; mA and/or kV adjustment per patient size (includes targeted exams where dose is matched to clinical indication); or iterative reconstruction. COMPARISON: No relevant prior studies available. RADIATION DOSE METRICS: Total DLP (mGy-cm): 733 FINDINGS: Brain: No acute territorial infarct or intracranial hemorrhage. No mass effect or midline shift. Cerebral ventricles: No ventriculomegaly. Paranasal sinuses: Mild mucoperiosteal thickening in the ethmoid sinus. No fluid levels. Mastoid air cells: Visualized mastoid air cells are well aerated. Bones/joints: No acute displaced fracture. Soft tissues: Unremarkable. IMPRESSION: No acute territorial infarct or intracranial hemorrhage detected. COMMENTS: If there is further clinical concern for intracranial pathology, MRI of the brain may be performed for further assessment. Rohan Chambers MD On 08/14/2021 06:36:27; [id number] [facility]
[2025-02-12 11:05] LABS: Specific Gravity 1.028 (1.005-1.030); Urine Bacteria None Seen /HPF (<20); Urine Bilirubin NEGATIVE (Negative); Urine Blood Negative (Negative); Urine Clarity Extremely Turbid (Clear); Urine Color Yellow (Yellow); Urine Culture Reflex Order NOT NEEDED; Urine Glucose NEGATIVE (Negative); Urine Ketones NEGATIVE (Negative); Urine Microscopic Reflex YN ORDER UMIC; Urine Mucus Slight /HPF (None Seen); Urine Nitrite NEGATIVE (Negative); Urine Protein TRACE (Negative); Urine Urobilinogen 1+ (Normal); Urine WBC <5 /HPF (<5); Urine Yeast (Budding) Trace /HPF (None Seen); Urine pH 7.5 (5.0-7.0)
[2025-02-12 11:18] LABS: Absolute Eosinophils 0.1 K/uL (0-0.5); Absolute Lymphocytes (CBC) 1.1 K/uL (0.7-4.9); Absolute Monocytes 0.8 K/uL (0.1-1.3); Absolute Neutrophil 15.7 K/uL (1.8-8.0); Basophils % 0.2 % (0-1.3); Eosinophils % 0.3 % (0-4.4); Hematocrit 41.1 % (36.0-45.0); Hemoglobin 14.3 g/dL (12.0-15.0); Lymphocytes % 6.3 % (15.3-44.8); MCH 29.3 pg (27.0-35.0); MCHC 34.8 g/dL (32.0-36.0); MPV 9.7 fL (7.6-11.3); Monocytes % 4.5 % (3.3-12.3); Neutrophils % 88.7 % (41.7-73.7); Platelets 218 thou/uL (152-406); RBC Red Blood Cell Count 4.89 M/uL (3.86-4.86)
[2025-02-12 11:23] LABS: Specific Gravity 1.028 (1.005-1.030)
[2025-02-12] MEDS ORDERED: CEFTRIAXONE 1000 MG/VIAL ONE (11:34)
[2025-02-12 11:35] LABS: Albumin 3.9 g/dL (3.4-5.0); Albumin/Globulin Ratio 1.1 (1.1-1.8); Anion Gap 7.7 mEq/L (5.0-15.0); Globulin 3.6 g/dL (2.3-3.5); Potassium 3.7 mEq/L (3.5-5.1); Protein, Total 7.5 g/dL (6.4-8.2)
[2025-02-12] MEDS ORDERED: MORPHINE 4 MG/ML SYR ONE (11:35)
[2025-02-12] MEDS ORDERED: KETOROLAC 30 MG/ML INJ ONE (11:35)
[2025-02-12] MEDS ORDERED: NA CHLORIDE 0.9% 1,000 ML ONE (11:35)
[2025-02-12] MEDS ORDERED: ONDANSETRON 4 MG/2 ML VIAL ONE (11:35)
[2025-02-12] MEDS ORDERED: NA CHLORIDE 0.9% 50 ML ONE (11:35)
[2025-02-12] MEDS ORDERED: FAMOTIDINE 20 MG/2 ML VIAL IV ONE (11:35)
[2025-02-12] MEDS ORDERED: Levofloxacin 750mg IV 750 MG/150 ML BAG IV ONE (11:35)
--- NOTE | 2025-02-12 11:53 | RAD REPORT ---
EXAMINATION: CT ABDOMEN AND PELVIS WITHOUT CONTRAST CLINICAL INDICATION: FLANK PAIN TECHNIQUE: CT abdomen and pelvis was performed, without IV contrast, as per department protocol. Axia l, sagittal and coronal reconstructions were obtained. One or more of the following dose reduction techniques were used: Automated exposure control, adjustment of the mA and kV according to the patien t size, and iterative reconstruction. Unless otherwise specified, incidental findings do not require dedicated imaging follow-up. COMPARISON: 12/02/2022 FINDINGS: The lack of intravenous contrast limits the sensitivity of this exam for evaluation of solid visceral organs, vascular structures, and retroperitoneum. LOWER CHEST: The visualized lung bases are clear. LIVER:Normal in size and contour. No focal lesion. Grossly unremarkable gallbladder. SPLEEN: Normal size. No focal lesion. PANCREAS: No mass, ductal dilation, or adair-pancreatic fluid. ADRENALS: Normal; no mass. KIDNEYS AND URETERS: Normal size and contour. No hydronephrosis. URINARY BLADDER: Normal contour. GASTROINTESTINAL TRACT: No evidence of bowel obstruction, significant free fluid, free air or abscess . APPENDIX: Normal appendix. LYMPH NODES: No lymphadenopathy. MUSCULOSKELETAL: No acute or suspicious osseous abnormality. ADDITIONAL FINDINGS: IUD in the uterus. IMPRESSION: No acute or concerning abnormalities in the abdomen or pelvis, with evaluation limited by lack of IV contrast.
--- NOTE | 2025-02-12 12:14 | EDPHYS ---
Physician Documentation [facility] Name: Ramírez Escalona Age: 24 yrs Sex: Female : 2000 Arrival Date: 02/12/2025 Time: 09:53 Bed 14 Private MD: VIDAL Physician Speedy Hurd HPI: 02/12 11:22 This 24 yrs old Female presents to ER via Ambulatory with complaints of Back edith Pain - RT LOWER, Body Aches, Blood in Urine. 11:22 The patient presents with pain that is acute, with no known mechanism of injury. The edith symptoms are located in the left mid back. Onset: The symptoms/episode began/occurred last night. The pain radiates to the left low back and left mid back. Associated signs and symptoms: Pertinent positives: hematuria. Modifying factors: The patient symptoms are alleviated by nothing, the patient symptoms are aggravated by any movement. Severity of symptoms: At their worst the symptoms were moderate, in the emergency department the symptoms are unchanged. The patient has experienced similar episodes in the past, several times. 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 - Infectious Disease History:: Denies. - Social history:: Smoking status: Reported history of juuling and/or vaping. ROS: 11:25 Constitutional: Negative for fever, chills, and weight loss, Eyes: Negative for injury, edith pain, redness, and discharge, ENT: Negative for injury, pain, and discharge, Neck: Negative for injury, pain, and swelling, Cardiovascular: Negative for chest pain, palpitations, and edema, Respiratory: Negative for shortness of breath, cough, wheezing, and pleuritic chest pain, Abdomen/GI: Negative for abdominal pain, nausea, vomiting, diarrhea, and constipation, : Negative for injury, bleeding, discharge, and swelling, MS/Extremity: Negative for injury and deformity, Skin: Negative for injury, rash, and discoloration, Neuro: Negative for headache, weakness, numbness, tingling, and seizure, Psych: Negative for depression, anxiety, suicide ideation, homicidal ideation, and hallucinations, Allergy/Immunology: Negative for hives, rash, and allergies, Endocrine: Negative for neck swelling, polydipsia, polyuria, polyphagia, and marked weight changes, Hematologic/Lymphatic: Negative for swollen nodes, abnormal bleeding, and unusual bruising, 11:25 Back: Positive for pain at rest, flank pain, radiated pain, of the left low back and left mid back, Exam: 11:25 Constitutional: This is a well developed, well nourished patient who is awake, alert, edith and in no acute distress. Head/Face: Normocephalic, atraumatic. Eyes: Pupils equal round and reactive to light, extra-ocular motions intact. Lids and lashes normal. Conjunctiva and sclera are non-icteric and not injected. Cornea within normal limits. Periorbital areas with no swelling, redness, or edema. ENT: Nares patent. No nasal discharge, no septal abnormalities noted. Tympanic membranes are normal and external auditory canals are clear. Oropharynx with no redness, swelling, or masses, exudates, or evidence of obstruction, uvula midline. Mucous membranes moist. Neck: Trachea midline, no thyromegaly or masses palpated, and no cervical lymphadenopathy. Supple, full range of motion without nuchal rigidity, or vertebral point tenderness. No Meningismus. Chest/axilla: Normal chest wall appearance and motion. Nontender with no deformity. No lesions are appreciated. Cardiovascular: Regular rate and rhythm with a normal S1 and S2. No gallops, murmurs, or rubs. Normal PMI, no JVD. No pulse deficits. Respiratory: Lungs have equal breath sounds bilaterally, clear to auscultation and percussion. No rales, rhonchi or wheezes noted. No increased work of breathing, no retractions or nasal flaring. Abdomen/GI: Soft, non-tender, with normal bowel sounds. No distension or tympany. No guarding or rebound. No evidence of tenderness throughout. Back: No spinal tenderness. No costovertebral tenderness. Full range of motion. Skin: Warm, dry with normal turgor. Normal color with no rashes, no lesions, and no evidence of cellulitis. MS/ Extremity: Pulses equal, no cyanosis. Neurovascular intact. Full, normal range of motion., bilateral aka Neuro: Awake and alert, GCS 15, oriented to person, place, time, and situation. Cranial nerves II-XII grossly intact. Motor strength 5/5 in all extremities. Sensory grossly intact. Cerebellar exam normal. Normal gait. Psych: Awake, alert, with orientation to person, place and time. Behavior, mood, and affect are within normal limits. Vital Signs: 10:14 BP 113 / 79; Pulse 111; Resp 17; Temp 98.7(O); Pulse Ox 100% ; Weight 81.65 kg; Height jl7 5 ft. 3 in. ; Pain 4/10; 11:48 BP 112 / 72; Pulse 97; Resp 16; Pulse Ox 99% on R/A; jl7 13:00 BP 108 / 75; Pulse 87; Resp 16; Pulse Ox 97% on R/A; jl7 10:14 Body Mass Index 31.89 (81.65 kg, 160.02 cm) jl7 10:14 Pain Scale: Adult jl7 MDM: 10:11 Medical Screening Exam initiated edith 11:27 Differential diagnosis: Fatigue Pyelonephritis Renal Infarction ruptured edith disc, Scoliosis Ureterolithiasis. Data reviewed: vital signs, nurses notes, lab test result(s), radiologic studies, CT scan. Consideration of Admission/Observation Escalation of care including admission/observation considered. I considered the following discharge prescriptions or medication management in the emergency department Medications were administered in the Emergency Department. See MAR. Independent interpretation of the following test(s) in the Emergency Department CT Scan: My interpretation is ct stone. Test considered but Not performed: Ultrasound no abd usg. Care significantly affected by the following chronic conditions: anxiety and depression. 02/12 10:45 Order name: UA Rfx Jesus Cult if indicated; Complete Time: 11:26 db 02/12 10:47 Order name: CBC with Diff [facility] 02/12 10:47 Order name: CMP; Complete Time: 12:14 edith 02/12 10:47 Order name: Lipase; Complete Time: 12:14 edith 02/12 10:47 Order name: Test, Urine; Complete Time: 11:26 edith 02/12 13:16 Order name: CBC Smear Scan EDNV 02/12 10:47 Order name: CT Stone Protocol; Complete Time: 12:14 edith 02/12 10:47 Order name: IV Saline Lock; Complete Time: 11:19 edith 02/12 10:47 Order name: Labs collected and sent; Complete Time: 11:19 edith Administered Medications: 11:47 Drug: Famotidine IVP 20 mg IVP once; dilute with 10 mL 0.9% NaCl; give over 2 minutes db Route: IVP; Site: left antecubital; 13:31 Follow up: Response: No adverse reaction db 11:47 Drug: Ondansetron IVP 4 mg IVP once; over 2 minutes Route: IVP; Site: left antecubital; db 13:32 Follow up: Response: No adverse reaction db 11:47 Drug: morphine IVP or IV 4 mg IVP once over 4 mins Route: IVP; Infused Over: 4 mins; db Site: left antecubital; 13:31 Follow up: Response: No adverse reaction db 11:47 Drug: NS 0.9% IV 1000 ml IV at 1 bolus Per protocol; to be given as a bolus over 60 db minutes Route: IV; Rate: 1 bolus; Site: left antecubital; 13:32 Follow up: Response: No adverse reaction; IV Status: Completed infusion; IV Intake: db 1000ml 11:47 Drug: Rocephin IV 1 grams IV at per protocol once; Given slow IV push per pharmacy db instructions Route: IV; Rate: per protocol; Site: left antecubital; 13:31 Follow up: Response: No adverse reaction; IV Status: Completed infusion; IV Intake: 50mldb 11:47 Drug: Ketorolac IVP 30 mg IVP once; if not , hold otherwise Route: IVP; Site: db left antecubital; 13:31 Follow up: Response: No adverse reaction db 11:50 Drug: levofloxacin IVPB 750 mg 150 ml IVPB once over 90 mins Volume: 150 ml; Route: db IVPB; Infused Over: 90 mins; Site: left antecubital; 13:31 Follow up: Response: No adverse reaction; IV Status: Completed infusion; IV Intake: db 150ml Disposition Summary: 02/12/25 12:14 Discharge Ordered Notes: Location: Home edith Problem: new edith Symptoms: have improved edith Condition: Stable edith Diagnosis - Pyelonephritis acute edith - UTI/ Urinary tract infection, site not specified edith - Elevated white blood cell count edith Followup: edith - With: Private Physician - When: 2 - 3 days - Reason: Recheck today's complaints, Continuance of care, Re-evaluation by your physician Discharge Instructions: - Discharge Summary Sheet edith - Dysuria edith - Pyelonephritis, Adult edith - Pyelonephritis, Adult, [id number] edith - Urinary Tract Infection, Adult edith - Urinary Tract Infection, Adult, [id number] [facility] Forms: - Medication Reconciliation Form [facility] - Antibiotic Education edith - Prescription Opioid Use edith - Patient Portal Instructions [facility] - Leadership Thank You Letter [facility] Prescriptions: - cefdinir 300 mg Oral capsule - take 1 capsule ORAL route 2 times per day for 5 days; 10 capsule; Refills: 0, [facility] Product Selection Permitted - levofloxacin 500 mg Oral tablet - take 1 tablet ORAL route once daily for 7 days; 7 tablet; Refills: 0, Product [facility] Selection Permitted - Tylenol-Codeine #3 300mg-30mg Oral tablet - take 2 tablets ORAL route every 6 hours As needed; 20 tablet; Refills: 0, [facility] Product Selection Permitted Signatures: Dispatcher [employer] EDMS Speedy Hurd MD MD cha Leal, Jahala RN RN jl7 Mariola Saini RN RN db Corrections: (The following items were deleted from the chart) 10:45 10:45 UA Rfx Jesus Cult if indicated+U.LAB.BRZ ordered. EDMS EDMS 10:47 10:47 Stone Protocol+CT.RAD.BRZ ordered. EDMS EDMS
--- NOTE | 2025-02-12 12:14 | ER ---
Nurse's Notes [facility] Name: Ramírez Escalona Age: 24 yrs Sex: Female : 2000 Arrival Date: 02/12/2025 Time: 09:53 Bed 14 Private MD: Diagnosis: Pyelonephritis acute;UTI/ Urinary tract infection, site not specified;Elevated white blood cell count Presentation: 02/12 10:14 Chief complaint: Patient states: woke at 0400 with body aches, right flank pain, blood jl7 in urine. Coronavirus screen: At this time, the client does not indicate any symptoms associated with coronavirus-19. Ebola Screen: No symptoms or risks identified at this time. Initial Sepsis Screen: Does the patient meet any 2 criteria? No. Patient's initial sepsis screen is negative. Does the patient have a suspected source of infection? No. Patient's initial sepsis screen is negative. Risk Assessment: Do you want to hurt yourself or someone else? Patient reports no desire to harm self or others. Onset of symptoms was February 12, 2025 at 04:00. 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 - Infectious Disease History:: Denies. - Social history:: Smoking status: Reported history of juuling and/or vaping. Screenin:00 [facility] ED Fall Risk Assessment (Adult) History of falling in the last 3 months, jl7 including since admission No falls in past 3 months (0 pts) Confusion or Disorientation No (0 pts) Intoxicated or Sedated No (0 pts) Impaired Gait No (0 pts) Mobility Assist Device Used No (0 pt) Altered Elimination No (0 pt) Score/Fall Risk Level 0 - 2 = Low Risk Oriented to surroundings, Maintained a safe environment. Abuse screen: Denies threats or abuse. Denies injuries from another. Nutritional screening: No deficits noted. Tuberculosis screening: No symptoms or risk factors identified. Assessment: 11:00 Reassessment: Patient appears in no apparent distress at this time. Patient and/or jl7 family updated on plan of care and expected duration. Pain level reassessed. Patient is alert, oriented x 3, equal unlabored respirations, skin warm/dry/pink. General: Appears in no apparent distress. comfortable, Behavior is calm, cooperative. Pain: Complains of pain in left low back and left mid back. Respiratory: Airway is patent Respiratory effort is even, unlabored, Respiratory pattern is regular, symmetrical. 12:41 Reassessment: DC PENDING ABX FINISH. db 13:00 Reassessment: Patient appears in no apparent distress at this time. Patient and/or jl7 family updated on plan of care and expected duration. Pain level reassessed. Patient is alert, oriented x 3, equal unlabored respirations, skin warm/dry/pink. Patient states feeling better. Patient states symptoms have improved. General: Appears in no apparent distress. comfortable, Behavior is calm, cooperative. Neuro: Level of Consciousness is awake, alert, obeys commands, Oriented to person, place, time, situation. Vital Signs: 10:14 BP 113 / 79; Pulse 111; Resp 17; Temp 98.7(O); Pulse Ox 100% ; Weight 81.65 kg; Height jl7 5 ft. 3 in. ; Pain 4/10; 11:48 BP 112 / 72; Pulse 97; Resp 16; Pulse Ox 99% on R/A; jl7 13:00 BP 108 / 75; Pulse 87; Resp 16; Pulse Ox 97% on R/A; jl7 10:14 Body Mass Index 31.89 (81.65 kg, 160.02 cm) jl7 10:14 Pain Scale: Adult [facility] ED Course: 10:02 Patient arrived in ED. cj3 10:11 Speedy Hurd MD is Attending Physician. edith 10:15 Triage completed. jl7 10:16 Arm band placed on right wrist. jl7 10:31 Mariola Saini, DAJUAN is Primary Nurse. db 11:00 Patient has correct armband on for positive identification. Bed in low position. Call jl7 light in reach. Side rails up X 1. Pulse ox on. NIBP on. Warm blanket given. Pillow given. 11:19 CMP Sent. cc6 11:19 Lipase Sent. cc6 11:19 Test, Urine Sent. cc6 11:20 Initial lab(s) drawn, by me, sent to lab. Urine collected: clean catch specimen. cc6 Inserted saline lock: 20 gauge in left antecubital area, using aseptic technique. Blood collected. Flushed with 10 mL NS. 11:41 CT Stone Protocol In Process Unspecified. EDMS 13:27 Provided Education on: discharge and followup. jl7 13:27 No provider procedures requiring assistance completed. IV discontinued, intact, jl7 bleeding controlled, No redness/swelling at site. Administered Medications: 11:47 Drug: Famotidine IVP 20 mg IVP once; dilute with 10 mL 0.9% NaCl; give over 2 minutes db Route: IVP; Site: left antecubital; 13:31 Follow up: Response: No adverse reaction db 11:47 Drug: Ondansetron IVP 4 mg IVP once; over 2 minutes Route: IVP; Site: left antecubital; db 13:32 Follow up: Response: No adverse reaction db 11:47 Drug: morphine IVP or IV 4 mg IVP once over 4 mins Route: IVP; Infused Over: 4 mins; db Site: left antecubital; 13:31 Follow up: Response: No adverse reaction db 11:47 Drug: NS 0.9% IV 1000 ml IV at 1 bolus Per protocol; to be given as a bolus over 60 db minutes Route: IV; Rate: 1 bolus; Site: left antecubital; 13:32 Follow up: Response: No adverse reaction; IV Status: Completed infusion; IV Intake: db 1000ml 11:47 Drug: Rocephin IV 1 grams IV at per protocol once; Given slow IV push per pharmacy db instructions Route: IV; Rate: per protocol; Site: left antecubital; 13:31 Follow up: Response: No adverse reaction; IV Status: Completed infusion; IV Intake: 50mldb 11:47 Drug: Ketorolac IVP 30 mg IVP once; if not , hold otherwise Route: IVP; Site: db left antecubital; 13:31 Follow up: Response: No adverse reaction db 11:50 Drug: levofloxacin IVPB 750 mg 150 ml IVPB once over 90 mins Volume: 150 ml; Route: db IVPB; Infused Over: 90 mins; Site: left antecubital; 13:31 Follow up: Response: No adverse reaction; IV Status: Completed infusion; IV Intake: db 150ml Medication: 11:00 VIS not applicable for this client. jlBrenda Intake: 13:31 IV: 150ml; Total: 150ml. db 13:31 IV: 50ml; Total: 200ml. db 13:32 IV: 1000ml; Total: 1200ml. db Outcome: 12:14 Discharge ordered by . edith 13:27 Discharged to home ambulatory, ashwin 13:27 Condition: stable 13:27 Discharge instructions given to patient, family, Instructed on discharge instructions, follow up and referral plans. Prescriptions given X 3, 13:32 Patient left the ED. db Signatures: Dispatcher [employer] EDMS Speedy Hurd MD MD cha Leal, Jahala, RN RN jl7 Mariola Saini, RN RN Alla Cook cc6 Silvina Naylor cj3
[2025-02-12 13:16] LABS: Blood Morphology Comment NOT SEEN (NOT SEEN); Platelet Estimate ADEQ; White Blood Cell Scan OK (OK)
[2025-02-12 14:11] VITALS: TEMP 98.7
[2025-02-12 14:13] VITALS: BP 108/75; O2SAT 97
== END 2025-02-12 13:32 | disposition home or self-care (01) ==
LOC: ER 09:53
DX: N10 Acute pyelonephritis (principal); N39.0 Urinary tract infection, site not specified; D72.829 Elevated white blood cell count, unspecified
CPT/HCPCS: 96365; 85025; 81001; 36415; 81025; 83690; 80053; 76377; 74176; 96375; 99284; J2405; J7030; J0696

== ENCOUNTER 2025-02-15 10:29 | Emergency (ER) | payer BC ==
--- OUTSIDE RECORDS SUMMARY | 2025-02-15 10:34 | XMS REPORT | Continuity of Care Document ---
Author Name Unknown Address [address] [place] [address] [address] [place] [address] [facility] Address [address] [place] [address] [address] [place] [address] Care Team Providers Care Active Directory Specialist Name Role Phone Unknown, Physician Primary Care Physician JACOB Urban Attending Clinician Un available Jesika Alarcon Attending Clinician Unavailabl e RADIOLOGY Attending Clinician Unavailable Radiology Attending Clinician Unavailable Doctor Unassigned, [place] Attending Clinician U NADEGE Guallpa Attending Clinician Unavailable TOÑITO MOTLEY Attending Clinician Unavailable JOCELYNE BEGUM Attending Clinician Unavail able Dagoberto Olvera CGC Attending Clinician [phone] Lexy Paulson RN Attending Clinician Unavailable Counselor, [facility] Attending Clinician Unav SHERRI Bettencourt Attending Clinician Unavailable MELECIO DEE-BRI Attending Clinician Sirena NATTY Logan Attending Clinician Unavailable Only, Ang Db Test Attending Clinician UnavailNatty Goss Attending Clinician [phone] Pob, [facility] Main Attending Clinician UnavailSherri Barton MD Attending Clinician [phone] VALERIA PEREZ Attending Clinician Unavailable EDWIGE DUNCAN Attending Clinician Unavailable Omaghombonifacio DENISE Cecilia Attending Clinician Pob1, [facility] Attending Clinician Unav ailable Edwige Berger Attending Clinician [phone] Manuel George MD Attending Clinician [phone] MANUEL GEORGE Attending Clinician UnavailJACOB Sylvester Admitting Clinician Un available Josefina Knowles Admitting Clinician Unavailable JOSEFINA KNOWLES Admitting Clinician Unavailab TOÑITO Kaufman Admitting Clinician Unavailable MANUEL GEORGE Admitting Clinician Unavailtaylor maki Payers Payer Name Policy Type Policy Number Effective Date Expirati on Date Source [facility] [id number] 2019 00:00:00 [facility] [id number] 1 00:00:00 [facility] [id number] 2014 00:00:00 Problems Condition Name Condition Details Condition Category Status Onset Date Resolution Date Last Treatment Date Treating Clinician Comments Source , 06/16/22, ELECTIVE IOL (UNVACCINA T , 06/16/22, ELECTIVE IOL (UNVACCINA T Active 05/31/2022 [facility] Diagnosis Active 05-31 00:00: 00 2022-06-14 13:56:00 Jesús Talbot OB PROBLEM OB PROBLEM Active 05/25/2022 [facility] Diagnosis Active 05-25 00:00: 00 2022-05-25 22:30:00 Jesús Talbot PYELONEPHR ITIS PYELONEPHR ITIS Active 05/11/2022 [facility] Diagnosis Active 8- 00:00: 00 2022-05-13 12:33:00 Jesús Talbot CONTRACTIO NS CONTRACTIO NS Active 05/11/2022 [facility] Diagnosis Active 8- 00:00: 00 2022-05-12 09:22:00 Jesús Talbot PAIN PAIN Active 03/23/2022 [facility] Diagnosis Active 6- 00:00: 00 2022-03-23 21:28:00 Jesús Talbot Abnormal chromosoma l and genetic finding on screening mother Abnormal chromosoma l and genetic finding on screening mother Disease Active 3-10 00:00: 00 [facility] 6 WKS PREGO/VOMI TING/ABD PAIN 6 WKS PREGO/VOMI TING/ABD PAIN Active 10/12/2021 Caden Talbot Diagnosis Active 1-12 00:00: 00 2021-10-14 19:28:00 Jesús Talbot Patient currently (finding) Patient currently (finding) Active 09/09/2021 Problem 06/19/2022 [facility] Problem Active 2020-10 2- 00:00: 00 2022-06-19 22:56:53 Jesús Talbot FALL FALL Active 08/14/2021 [facility] Diagnosis Active 2020-10 1- 00:00: 00 2021-08-15 13:14:00 Jesús Talbot No known active problems No known active problems [facility] Depressive disorder (disorder) Depressive disorder (disorder) Active Problem 06/19/2022 [facility], [facility] Problem Active 2022-06-19 22:56:53 Jesús Talbot Chlamydial infection (disorder) Chlamydial infection (disorder) Resolved 10/01/2021 Problem 06/19/2022 [facility] Problem Resolve d 1- 00:00: 00 2022-06-19 22:56:53 2022-06-19 22:56:53 Jesús Talbot History of Past Illness Condition Name Condition Details Condition Category Status Onset Date Resolution Date Last Treatment Date Treating Clinician Comments Source state, incidental state, incidental 05/28/2022 [facility] Problem 8- 04:06: 00 2022-05-28 00:11:21 2022-05-28 00:11:21 Jesús Talbot Frequency of micturitio n Frequency of micturitio n 05/26/2022 05/28/2022 [facility] Problem 8- 04:06: 00 2022-05-28 00:11:21 2022-05-28 00:11:21 Jesús Talbot Allergies, Adverse Reactions, Alerts Allergy Name Allergy Type Status Severity Reaction(s) Onset Date Inactive Date Treating Clinician Comments Source No Known Allergie s DA Active U 2023-10 00:00: 00 [facility] Shellfis h-Derive d Products Allergy to substanc e Active Swelling 12-09 00:00: 00 [facility] shellfis h shellfis h Active Jesús Talbot No Known Medicati on Allergie s No Known Medicati on Allergie s Active Jesús Talbot NO KNOWN ALLERGIE S Drug Class Active [facility] Social History Social Habit Start Date Stop Date Quantity Comments Source ASSERTION 2021-09-23 00:00:00 [facility] History SDOH Alcohol Frequency [facility] History SDOH Alcohol Std Drinks [facility] History SDOH Alcohol Binge [facility] History of tobacco use Passive smoker [facility] Gender identity [facility] Sexual orientation U [facility] Exposure to SARS-CoV-2 (event) Not sure [facility] Social History 2022-03-24 00:37:39 2022-03-24 00:37:39 Caden Talbot Tobacco use and exposure 2021-12-09 00:00:00 2021-12-09 00:00:00 Former smokeless tobacco user [facility] Alcohol intake 2021-12-09 00:00:00 2021-12-09 00:00:00 Ex-drinker (finding) [facility] Alcohol Comment 2021-09-06 00:00:00 2021-09-06 00:00:00 Socially [facility] History of Social function 2021-09-06 00:00:00 2021-09-06 00:00:00 [facility] Sex Assigned At 2000 00:00:00 2000 00:00:00 [facility] Smoking Status Start Date Stop Date Source Tobacco smoking consumption unknown [facility] Never smoked tobacco [facility] Social History 2021-08-14 10:11:52 Giana Santana Medications Ordered Medication Name Filled Medication Name Start Date Stop Date Current Medication? Ordering Clinician Indication Dosage Frequency Signature (SIG) Comments Components Source ferrous sulfate 325 mg oral enteric coated tablet 06-17 16:55: 00 Yes 325 mg = 1 tab, PO, Daily, # 30 tab, 2 Refill(s), Pharmacy: [facility] #[id number], 160.02, cm, 06/09/22 8:47:00 CDT, Height, 77.727, kg, 06/09/22 8:47:00 CDT, Weight Memelias tip Talbot ibuprofen 600 mg oral tablet 06-17 16:53: 00 Yes 600 mg = 1 tab, PO, Q6H, X 14 day, # 56 tab, 1 Refill(s), Pharmacy: [facility] #[id number], 160.02, cm, 06/09/22 8:47:00 CDT, Height, 77.727, kg, 06/09/22 8:47:00 CDT, Weight Memelias tip Talbot Colace 100 mg oral capsule 06-17 16:53: 00 Yes 100 mg = 1 cap, PO, Daily, PRN Constipati on, # 60 cap, 2 Refill(s), Pharmacy: [facility] #[id number], 160.02, cm, 06/09/22 8:47:00 CDT, Height, 77.727, kg, 06/09/22 8:47:00 CDT, Weight Jesús tip Talbot Tylenol with Codeine #3 oral tablet 06-17 16:53: 00 Yes 1 - 2 tab, PO, Q6H, PRN Pain, X 5 day, # 20 tab, 0 Refill(s), [id number], 160.02, cm, 06/09/22 8:47:00 CDT, Height, 77.727, kg, 06/09/22 8:47:00 CDT, Weight [facility] [place] Colace 100 mg oral capsule 06-17 14:21: [...] Same as: BD Posiflush Sterile [facility] [place] oxyCODONE immediate release 06-15 13:55: 00 No [...] 13:55: 00 No Notes: (Same As: Nubain) eJsús tip [place] naloxone 06-15 13:55: 00 No Notes: Same as Narcan Jesús whelan [place] methylergon ovine (ANES) 06-15 13:50: 00 No Route: IM, Drug form: INJ, ONCE, Stop date: 06/15/22 8:50:00 CDT Inoelias [facility] [place] fentaNYL (ANES) 06-15 13:40: 00 No Route: EPIDURAL, Drug form: INJ, ONCE, Stop date: 06/15/22 8:40:00 CDT [facility] [place] sodium bicarbonate (ANES) 06-15 13:35: 00 No [...] Notes: (Same as Elisa ladd) [place] [place] oxytocin 30 units in NS 500 mL [...] Preservati ve free. (Same as: Xylocaine MPF) Jesús Talbot terbutaline 06-13 06:42: 00 No Notes: DO NOT USE IN ART EDUCATOR AREA (Same As: Brethine) Jesús Talbot Dermoplast [...] day, # 40 cap, 0 Refill(s), Pharmacy: [facility] #[id number], 160.02, cm, 05/11/22 21:15:00 CDT, Height, 78.182, [...] 12-09 09:46: 03 Yes Take by mouth. [facility] MV-Min-Fe Fum-FA-DHA ( 1 PO) 12-09 09:45: 27 Yes Take by mouth. [facility] Acetaminoph en 10-15 00:35: 00 Yes Notes: [...] Weight 65 kg, Start date: 10/14/21 18:28:00 THIRD COOK, Stop date: 10/14/21 18:28:00 THIRD COOK, 0 Jesús Talbot Ondansetron 10-15 00:28: 00 Yes Notes: (Same as: Lenin) MEDICATION WASTE Product Size: 4 mg Product Wasted: ___ mg Jesús Talbot trazodone HCl (TRAZODONE ORAL) 2020-10 15:52: 14 Yes Take by mouth. [facility] ibuprofen 600 mg oral tablet 2020-10 10:59: [...] 04-13 14:44: 55 Yes Take by mouth. [facility] traMADol 50 mg tablet 03-19 00:00: 00 09-06 00:00 :00 No [id number] 50mg Take 1 tablet by mouth every 6 (six) hours as needed (PAIN). [facility] ondansetron 4 mg tablet 03-19 00:00: 00 09-06 00:00 :00 No [id number] 4mg Take 1 tablet by mouth every 8 (eight) hours as needed for Nausea and Vomiting (N/V). [facility] Vital Signs Vital Name Observation Time Observation Value Comments S ource Body height 2021-12-09 15:39:00 160 [facility] Body weight 2021-12-09 15:39:00 67.132 kg [facility] BMI 2021-12-09 15:39:00 26.22 kg/m2 [facility] Body mass index (BMI) [Percentile] Per age and sex 2021-12-09 15:39:00 85.43 % [facility] Systolic blood pressure 2021-09-06 21:45:00 100 mm[Hg] [facility] Diastolic blood pressure 2021-09-06 21:45:00 69 mm[Hg] [facility] Heart rate 2021-09-06 21:45:00 97 /min [facility] Body temperature 2021-09-06 21:45:00 36.72 Shanda [facility] Respiratory rate 2021-09-06 21:45:00 18 /min [facility] Body height 2021-09-06 21:45:00 160 cm [facility] Body weight 2021-09-06 21:45:00 66.044 kg [facility] BMI 2021-09-06 21:45:00 25.79 kg/m2 [facility] Body mass index (BMI) [Percentile] Per age and sex 2021-09-06 21:45:00 84.16 % [facility] Oxygen saturation in Arterial blood by Pulse oximetry 2021-09-06 21:45:00 99 /min [facility] Temperature Oral (F) 2022-06-17 12:30:00 97.8 F [facility] [place] Heart Rate 2022-06-17 12:30:00 [facility] [place] Respitory Rate 2022-06-17 12:30:00 [facility] [place] Systolic (mm Hg) 2022-06-17 12:30:00 [facility] [place] Diastolic (mm Hg) 2022-06-17 12:30:00 [facility] Temperature Oral (F) 2022-06-17 05:00:00 98 F [facility] Heart Rate 2022-06-17 05:00:00 [facility] [place] Respitory Rate 2022-06-17 05:00:00 [facility] [place] Systolic (mm Hg) 2022-06-17 05:00:00 [facility] [place] Diastolic (mm Hg) 2022-06-17 05:00:00 [facility] [place] Temperature Oral (F) 2022-06-16 21:00:00 98.1 F [facility] [place] Heart Rate 2022-06-16 21:00:00 [facility] [place] Respitory Rate 2022-06-16 21:00:00 [facility] [place] Systolic (mm Hg) 2022-06-16 21:00:00 [facility] [place] Diastolic (mm Hg) 2022-06-16 21:00:00 [facility] Height 2022-06-09 13:47:00 160.02 cm [facility] Weight 2022-06-09 13:47:00 [facility] BMI Calculated 2022-06-09 13:47:00 [facility] Systolic (mm Hg) 2022-05-26 04:12:00 [facility] Diastolic (mm Hg) 2022-05-26 04:12:00 [facility] Systolic (mm Hg) 2022-05-26 04:00:00 [facility] Diastolic (mm Hg) 2022-05-26 04:00:00 [facility] [place] Systolic (mm Hg) 2022-05-26 03:30:00 [facility] Diastolic (mm Hg) 2022-05-26 03:30:00 [facility] Height 2022-05-26 00:20:00 160.02 cm [facility] [place] BMI Calculated 2022-05-26 00:20:00 [facility] Weight 2022-05-26 00:20:00 [facility] [place] Heart Rate 2022-05-26 00:20:00 [facility] [place] Respitory Rate 2022-05-26 00:20:00 [facility] Temperature Oral (F) 2022-05-26 00:20:00 98.1 F [facility] Heart Rate 2022-05-13 15:29:07 [facility] [place] Respitory Rate 2022-05-13 15:29:07 [facility] Temperature Oral (F) 2022-05-13 15:28:58 98.6 F [facility] [place] Systolic (mm Hg) 2022-05-13 15:28:51 [facility] [place] Diastolic (mm Hg) 2022-05-13 15:28:51 [facility] Heart Rate 2022-05-13 15:28:51 [facility] [place] Heart Rate 2022-05-13 11:20:26 [facility] [place] Respitory Rate 2022-05-13 11:20:26 [facility] Temperature Oral (F) 2022-05-13 11:20:23 98 F [facility] [place] Systolic (mm Hg) 2022-05-13 11:20:04 [facility] [place] Diastolic (mm Hg) 2022-05-13 11:20:04 [facility] Respitory Rate 2022-05-13 06:53:47 [facility] Temperature Oral (F) 2022-05-13 06:53:43 98.6 F [facility] [place] Systolic (mm Hg) 2022-05-13 06:53:37 [facility] [place] Diastolic (mm Hg) 2022-05-13 06:53:37 [facility] Height 2022-05-12 02:15:00 160.02 cm [facility] [place] Weight 2022-05-12 02:15:00 [facility] [place] BMI Calculated 2022-05-12 02:15:00 [facility] Systolic (mm Hg) 2022-05-11 13:00:00 [facility] [place] Diastolic (mm Hg) 2022-05-11 13:00:00 [facility] [place] Height 2022-05-11 11:58:00 160.02 cm [facility] BMI Calculated 2022-05-11 11:58:00 [facility] Weight 2022-05-11 11:58:00 [facility] Systolic (mm Hg) 2022-05-11 11:58:00 [facility] Diastolic (mm Hg) 2022-05-11 11:58:00 [facility] Heart Rate 2022-05-11 11:58:00 [facility] [place] Respitory Rate 2022-05-11 11:58:00 [facility] [place] Temperature Oral (F) 2022-05-11 11:58:00 97.3 F [facility] [place] Systolic (mm Hg) 2022-03-24 02:16:00 [facility] Diastolic (mm Hg) 2022-03-24 02:16:00 [facility] [place] Systolic (mm Hg) 2022-03-24 01:45:00 [facility] [place] Diastolic (mm Hg) 2022-03-24 01:45:00 [facility] Systolic (mm Hg) 2022-03-24 01:06:00 [facility] Diastolic (mm Hg) 2022-03-24 01:06:00 [facility] [place] Height 2022-03-24 00:28:00 160.02 cm [facility] [place] BMI Calculated 2022-03-24 00:28:00 [facility] Weight 2022-03-24 00:28:00 [facility] [place] Heart Rate 2022-03-24 00:28:00 [facility] [place] Respitory Rate 2022-03-24 00:28:00 [facility] [place] Temperature Oral (F) 2022-03-24 00:28:00 98.3 F [...] [facility] Respitory Rate 2021-08-14 12:00:00 [facility] [place] Systolic (mm Hg) 2021-08-14 12:00:00 [facility] [place] Diastolic (mm Hg) 2021-08-14 12:00:00 [facility] [place] Respitory Rate 2021-08-14 11:30:00 [facility] [place] Systolic (mm Hg) 2021-08-14 11:30:00 [facility] Diastolic (mm Hg) 2021-08-14 11:30:00 [facility] [place] Height 2021-08-14 08:07:00 160.02 cm [facility] [place] BMI Calculated 2021-08-14 08:07:00 [facility] [place] Weight 2021-08-14 08:07:00 [facility] [place] Heart Rate 2021-08-14 08:07:00 [facility] [place] Temperature Oral (F) 2021-08-14 08:07:00 97.8 F [facility] Procedures Procedure Date / Time Performed Performing Clinicia n Source XR CERVICAL SPINE 2 2023-06-01 20:43:02 Josefina Knowles [facility] XR LUMBAR SPINE 2 2023-06-01 20:43:02 Josefina Knowles [facility] XR SPINE THORACIC 2 2023-06-01 20:43:02 Josefina Knowles Tracy [facility] CONSENT/REFUSAL FOR DIAGNOSIS AND TREATMENT 2023-06-01 20:00:05 Doctor Unassigned, [place] [facility] POCT TEST 2021-09-06 21:55:00 Sherri Oconnor [facility] Admission to plastic surgery department<sup>1</sup > Caden Talbot Encounters Start Date/Time End Date/Time Encounter Type Admission Type Attending Clinicians Care Facility Care Department Encounter ID Source 2023-02-09 13:06:59 Outpatient [facility] [id number] [facility] 2022-06-12 23:58:00 Inpatient JACOB STEWART [facility] [id number] [facility] 2021-12-09 09:51:23 Outpatient [facility] [id number] [facility] 2021-12-09 09:50:50 Outpatient [facility] [id number] [facility] 2021-12-09 09:50:50 Outpatient [facility] [id number] [facility] 2021-12-08 15:51:55 Outpatient [facility] [id number] [facility] 2021-12-07 09:07:02 Outpatient [facility] [id number] [facility] 2024-08-18 22:28:00 2024-08-19 00:05:00 Emergency EM Jesika Alarcon [facility] [id number] [facility] 2023-06-01 15:02:19 2023-06-01 23:59:00 Outpatient R RADIOLOGY [facility] [id number] [facility] 2023-06-01 15:00:00 2023-06-01 23:59:00 Hospital Encounter Radiology [facility] [id number] 350.1.13.10 4.2.7.2.686 [id number] [facility] 2023-06-01 00:00:00 2023-06-01 00:00:00 Orders Only Doctor Unassigned, [place] [facility] 1.2.840.114 350.1.13.10 4.2.7.2.686 [id number] [facility] 2022-06-13 04:58:00 2022-06-17 21:40:00 Inpatient nullFlavo [facility] [id number] [facility] 2022-06-15 00:45:00 2022-06-15 00:45:00 Outpatient [facility] [id number] [facility] 2022-06-12 00:00:00 2022-06-12 00:00:00 Outpatient [facility] [id number] [facility] 2022-05-26 00:10:34 2022-05-26 04:15:00 Emergency nullFlavo [facility] [id number] [facility] 2022-05-25 19:10:00 2022-05-25 23:15:00 Emergency E NADEGE AVILES [facility] [id number] [facility] 2022-05-12 02:51:00 2022-05-13 18:00:00 Observatio n nullFlavo [facility] [id number] [facility] 2022-05-11 21:51:00 2022-05-13 13:00:00 Outpatient Homer MOTLEY TOÑITO [facility] [id number] [facility] 2022-05-11 11:43:57 2022-05-11 13:15:00 Emergency nullFlavo [facility] [id number] [facility] 2022-05-11 06:43:00 2022-05-11 08:15:00 Emergency E JOCELYNE BEGUM [facility] [id number] [facility] 2022-03-24 00:17:28 2022-03-24 02:43:00 Emergency [facility] [id number] Jesús whelan [place] 2022-03-23 19:17:00 2022-03-23 21:43:00 Emergency JOCELYNE ROCK [facility] [id number] [facility] 2022-01-19 00:00:00 2022-01-19 00:00:00 Telephone Dagoberto Olvera [facility] [address] 1.2.840.114 350.1.13.58 [id number] [id number] [facility] 2022-01-05 00:00:00 2022-01-05 00:00:00 Telephone Dagoberto Olvera [facility] [address] 1.2.840.114 350.1.13.58 9.2.7.2.686 [id number] [facility] 2021-12-26 00:00:00 2021-12-26 00:00:00 Telephone Dagoberto Olvera [facility] [address] 1.2.840.114 350.1.13.58 9.2.7.2.686 [id number] [facility] 2021-12-21 00:00:00 2021-12-21 00:00:00 Telephone Dagoberto Olvera [facility] [address] 1.2.840.114 350.1.13.58 9.2.7.2.686 [id number] [facility] 2021-12-09 00:00:00 2021-12-09 00:00:00 Nurse Only Lexy Paulson Robyn [facility] [address] 1.2.840.114 350.1.13.58 9.2.7.2.686 [id number] [facility] 2021-12-08 14:00:00 2021-12-08 15:00:00 Education Counselor, [facility] [address] 1.2.840.114 350.1.13.58 9.2.7.2.686 [id number] [facility] 2021-10-19 09:00:00 2021-10-19 09:00:00 Outpatient SHERRI SNELL [facility] [id number] [facility] 2021-10-15 00:13:06 2021-10-15 03:05:00 Emergency nullFlavo r [facility] [id number] [facility] 2021-10-14 18:13:00 2021-10-14 21:05:00 Emergency E MELECIO DEE [facility] [address] [facility] 2021-10-11 15:45:00 2021-10-11 15:45:00 Outpatient SHERRI SNELL [facility] [id number] [facility] 2021-09-21 14:30:00 2021-09-21 15:10:35 Outpatient [facility] [id number] [facility] 2021-09-21 14:30:00 2021-09-21 14:45:00 Laboratory Only Only, Ang Db Test [facility] 1.2.840.114 350.1.13.10 4.2.7.2.686 [id number] [facility] 2021-09-07 09:00:00 2021-09-07 09:00:00 Outpatient SHERRI SNELL [facility] [id number] [facility] 2021-09-07 09:00:00 2021-09-07 09:00:00 Outpatient SHERRI SNELL [facility] [id number] [facility] 2021-09-06 16:45:00 2021-09-06 16:45:00 Outpatient SHERRI SNELL [facility] [id number] [facility] 2021-09-06 16:45:00 2021-09-06 16:45:00 Outpatient R SHERRI OCONNOR [facility] [id number] [facility] 2021-09-06 16:28:59 2021-09-06 16:43:59 Physical Design Engineer Visit Pob, Adc Lab Main Sherri Oconnor [facility] BUILDING 1.2.840.114 350.1.13.10 4.2.7.2.686 [id number] [facility] 2021-09-06 15:20:42 2021-09-06 16:09:45 Office Visit Sherri Oconnor [facility] BUILDING 1.2.840.114 350.1.13.10 4.2.7.2.686 [id number] [facility] 2021-09-06 15:15:00 2021-09-06 16:09:45 Outpatient R SHERRI OCONNOR [facility] [id number] [facility] 2021-09-06 00:00:00 2021-09-06 00:00:00 Orders Only Doctor Unassigned, [place] [facility] 1..840.114 350.1.13.10 4.2.7.2.686 [id number] [facility] 2021-08-14 08:00:28 2021-08-14 13:00:00 Emergency nullFlavo r [facility] [id number] Jesús whelan [place] 2021-02-02 00:00:00 2021-02-02 00:00:00 Outpatient R VALERIA PEREZ [facility] [id number] [facility] 2020-04-24 08:00:00 2020-04-24 08:00:00 Outpatient R EDWIGE DUNCAN [facility] [id number] [facility] 2020-04-19 00:00:00 2020-04-19 00:00:00 Letter (Out) Cecilia Mcmahon [facility] 1.2.840.114 350.1.13.10 4.2.7.2.686 [id number] [facility] 2020-04-15 00:00:00 2020-04-15 00:00:00 Telephone Cecilia Mcmahon [facility] 1.2.840.114 350.1.13.10 4.2.7.2.686 [id number] [facility] 2020-04-13 14:39:08 2020-04-13 14:59:08 Urgent Care Pob1, Acute Care Clinic Daniel Duncanthia [facility] 1.2.840.114 350.1.13.10 4.2.7.2.686 [id number] [facility] 2020-04-13 14:40:00 2020-04-13 14:40:00 [facility] [id number] [facility] 2020-03-19 08:59:46 2020-03-19 12:08:00 Emergency Manuel [facility] [id number] [facility] 2020-03-19 08:59:46 2020-03-19 12:08:00 Emergency X [facility] ERT [id number] [facility] Results Test Description Test Time Test Comments Results Result Co mments Source [employer] Work Study [id number] 21:06:00* Test Item Value Reference Range Interpretation Comme nts Glucose Lvl (test code = Glucose Lvl) 67 70-99 [facility]myhotlQYEFMIMLRO3960-83-20 02:08:00* Test Item Value Reference Range Interpretation Comme nts PT (test code = PT) 12.9 s 12.0-14.7 [facility] QUALIA (formerly known as [employer]) [id number] 06:51:00* Test Item Value Reference Range Interpretation Comme nts ABO/Rh (test code = ABO/Rh) O POS [facility] CampusIcsxrdzOZCNTGVUEE7231-69-14 06:51:00* Test Item Value Reference Range Interpretation Comme nts WBC (test code = WBC) 11.9 3.7-10.4 [id number] 06:51:00* Test Item Value Reference Range Interpretation Comme nts Hep Bs Ag (test code = Hep Bs Ag) Negative *NA*(06/13/22 1:51 AM) [facility] [id number] 13:49:00* Test Item Value Reference Range Interpretation Comme nts Coronavirus (COVID-19) LUCY (test code = Coronavirus (COVID-19) LUCY) Detected *ABN*(06/09/22 8:49 AM) [facility] AND [id number] 02:15:00* Test Item Value Reference Range Interpretation Comme nts UA Color (test code = UA Color) Yellow *NA*(05/25/22 9:15 PM) [facility] [id number] 02:15:00* Test Item Value Reference Range Interpretation Comme nts U Creatinine (test code = U Creatinine) 67.60 [facility] [id number] 01:12:00* Test Item Value Reference Range Interpretation Comme nts Glucose Lvl (test code = Glucose Lvl) 82 70-99 [id number] 01:12:00* Test Item Value Reference Range Interpretation Comme nts WBC (test code = WBC) 11.7 3.7-10.4 [facility]QTBLOIETCE9599-58-98 11:06:00* Test Item Value Reference Range Interpretation Comme nts WBC (test code = WBC) 9.2 3.7-10.4 [facility]AtlywaqLGKWGAQKSM1712-18-73 11:16:00* Test Item Value Reference Range Interpretation Comme nts Segs (test code = Segs) 82.3 45.0-75.0 [facility] AND [id number] 05:20:00* Test Item Value Reference Range Interpretation Comme nts UA Color (test code = UA Color) Yellow *NA*(05/12/22 12:20 AM) [facility] BANK [id number] 04:01:00* Test Item Value Reference Range Interpretation Comme nts ABO/Rh (test code = ABO/Rh) O POS [facility] C[id number] 02:17:00* Test Item Value Reference Range Interpretation Comme nts Coronavirus (COVID-19) LUCY (test code = Coronavirus (COVID-19) LUCY) Not Detected (05/11/22 9:17 PM) [facility] [id number] 21:55:00* Test Item Value Reference Range Interpretation Comme nts POCT PREG (test code = 1605) Negative On board controls acceptable with C Line (test code = 3574) Yes POCT PREG LOT # (test code = 3575) POCT PREG TEST DATE ( test code = 3576) [id number] 21:55:00* Test Item Value Reference Range Interpretation Comme nts POCT PREG (test code = 1605) Negative On board controls acceptable with C Line (test code = 3574) Yes POCT PREG LOT # (test code = 3575) POCT PREG TEST DATE ( test code = 3576) [facility] Notes Date/Time Note Provider Source 2024-08-18 23:52:00 [facility] ([facility]) EMERGENCY PROVIDER REPORT REPORT#:[id number] REPORT STATUS: Signed DATE:08/18/24 TIME: 2351 PATIENT: CONCEPCION BLACKMON UNIT #: [id number] ROOM/BED: : 02 AGE: 23 SEX: F PCP PHYS: Josefina Knowles VP RESPIRATORY SERVICE AUTHOR: Jesika Alarcon MD REP SRV [...] 6 months ago by plastic surgeon in [place]. Approximately 1 month ago she noticed a [...] Ga MD Follow-Up: Call for appointment Address: [address] [place] [id number] Discharge Note I have spoken with the [...] department or a call to 911. at [facility] RPT #:[id number] END OF REPORT [facility] 2022-06-14 15:59:00 EXAM: XR CHEST 1 VIE W DATE: 06/14/2022 15:48 INDICATION: - COVID +, Pain on inspiration COMPARISON: None. TECHNIQUE: AP chest IMPRESSION: There are no pulmonary or pleural based abnormalities. The cardiomediastinal silhouette is normal in size. There are no pleural effusions or pneumothorax. Osseous structures are unremarkable. [facility] 2021-08-14 06:20:58 Radiation Dose CTDIV [...] Rohan Chambers MD On 08/14/2021 06:39:28; [id number] [facility] 2021-08-14 06:10:00 Radiation Dose CTDIV OL [...] findings. Alyssia Trevino MD On 08/14/2021 06:44:09; [id number] [facility] 2021-08-14 05:40:00 Radiation Dose CTDIV OL [...] Rohan Chambers MD On 08/14/2021 06:36:27; [id number] [facility]
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
[2025-02-15] MEDS ORDERED: AZITHROMYCIN 250 MG TAB ONE (15:27)
[2025-02-15] MEDS ORDERED: ONDANSETRON 4 MG (ODT) TAB ONE (15:27)
[2025-02-15] MEDS ORDERED: CEFTRIAXONE 500 MG/VIAL ONE (15:27)
[2025-02-15 16:15] VITALS: TEMP 97.7; O2SAT 100
[2025-02-15 16:16] VITALS: BP 120/86
== END 2025-02-15 15:45 | disposition home or self-care (01) ==
LOC: ER 10:29
DX: T76.21XA Adult sexual abuse, suspected, initial encounter (principal)
CPT/HCPCS: 96372; 99285; Q0162; J0696